=== PATIENT | female | born 1965 | race Caucasian/White ===

== ENCOUNTER 2022-09-30 12:25 | Emergency (ER) | payer MEDICARE, SELFPAY ==
[2022-09-30] VITALS (31 sets, daily range): BP systolic 109–166; BP diastolic 48–92; PULSE 75–96; RESP 11–29; TEMP 36.9; O2SAT 98–100
--- NOTE | ~2022-09-30 | US_ITS ---
EXAMINATION: US venous doppler LE RT DATE: 09/30/2022 13:33 INDICATION: Right lower limb swelling. TECHNIQUE: Grayscale ultrasound images without and with compression and Doppler ultrasound images of the right lower extremity veins were obtained. COMPARISON: None. FINDINGS: There is thrombus in right common femoral vein, greater saphenous vein, deep femoral vein, femoral ve in, and posterior tibial and peroneal veins. IMPRESSION: 1. Extensive acute deep vein thrombosis in right lower limb. Reviewed, dictated and finalized at location A.
--- NOTE | ~2022-09-30 | XR_ITS ---
EXAMINATION: XR chest 2V DATE: 09/30/2022 13:19 INDICATION: Shortness of breath. TECHNIQUE: Frontal and lateral views of the chest were obtained. COMPARISON: None. FINDINGS: There is no pneumonia, pleural effusion, or pneumothorax. The heart size is normal. IMPRESSION: 1. No acute cardiopulmonary disease. Reviewed, dictated and finalized at location A.
--- NOTE | ~2022-09-30 | CT_ITS ---
EXAMINATION: CTA chest PE abdomen pel DATE: 09/30/2022 13:44 INDICATION: Pulmonary emboli. Diarrhea. TECHNIQUE: Computed tomography angiography (CTA) of the chest was performed with 100 mL Omnipaque-350 intravenous contrast timed to evaluate the pulmonary arteries. Coronal maximum intensity projection 3D-reconstructions were created by the technologist. Computed tomography (CT) of the abdomen and pelv is was performed with intravenous contrast. Automated exposure control and iterative reconstruction t echnique were employed. The dose-length product was 2016.35 mGy-cm. COMPARISON: None. FINDINGS: CTA chest: The lungs demonstrate mild dependent atelectasis. No pleural effusion. The heart size is n ormal. No pericardial effusion. There are acute pulmonary emboli in right upper lobe, right middle lo be, and right lower lobe. There is severe thoracic spondylosis. CT abdomen and pelvis: The liver, gallbladder, spleen, pancreas, and adrenal glands are normal. There is cortical thinning of the kidneys. There is a 6 mm cyst in left kidney. There is a 6.1 x 5.6 cm ma ss in the uterus centered at the endometrial complex. There are no dilated loops of bowel. The append ix is normal. There is mild right common iliac and left para-aortic lymphadenopathy. There is thrombu s in right femoral vein, deep femoral vein, greater saphenous vein, common femoral vein, and external iliac vein. There is no free intraperitoneal fluid. There is asymmetric edema in right thigh. There is severe lumbar spondylosis. IMPRESSION: 1. Acute right-sided pulmonary emboli. 2. 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 3. Mild right common iliac and left para-aortic lymphadenopathy suspicious for metastatic disease. 4. Deep vein thrombosis in right thigh and right external iliac vein. Reviewed, dictated and finalized at location A.
--- NOTE | 2022-09-30 12:32 | ECG_ITS ---
Measurements Intervals [place] Rate: 82 P: 57 NV: 132 QRS: -16 QRSD: 100 T: 30 QT: 389 QTc: 457 Interpretive Statements SINUS RHYTHM DELAYED PRECORDIAL R/S TRANSITION BASELINE ARTIFACT- I, II, AVR, AVL, AVF BORDERLINE ECG NO PREVIOUS ECG AVAILABLE FOR COMPARISON Electronically Signed On 09-30-2022 12:59:56 CDT by Jaylen Sood D.O.
--- NOTE | 2022-09-30 12:41 | ED.GENADULT ---
HPI - General Adult General Chief complaint: Shortness of Breath/Dyspnea Stated complaint: hard time breathing Time Seen by Provider: 09/30/22 12:30 History of Present Illness HPI narrative: 57-year-old female presented to the emergency department for evaluation of right leg swelling. Patient states the right leg began swelling approximately 2 days ago. Patient was also complaining of increased anxiety after she fell as she was being cyber stalked. Patient denies any chest pain or any shortness of breath. Patient denies any prior history of PE or DVT. Related Data Allergies Allergy/AdvReac Type Severity Reaction Status Date / Time lemon Allergy Mild Unknown Verified 09/30/22 12:29 Review of Systems Review of Systems: All systems reviewed & are unremarkable except as noted in HPI and below Exam Narrative: APPEARANCE: Ill-appearing HEAD: normocephalic, atraumatic. EYES: PERRLA/EOMI, conjunctivae clear. NOSE: Normal no drainage EARS:TMS clear with good light reflex. THROAT: Pharynx clear, no exudate. NECK: Supple. No adenopathy, no masses. RESPIRATORY: Airway patent, respirations nonlabored. Clear to auscultation bilaterally, no rales, rhonchi, wheezing. CARDIOVASCULAR: Regular rate and rhythm without murmurs rubs or gallops. ABDOMINAL: Soft, nontender, nondistended, normal bowel sounds Pelvic exam: No current vaginal bleeding or blood in the vaginal vault MUSCULOSKELETAL: Right lower extremity swelling and erythema with extensive edema NEURO: Alert. Cranial nerves II through XII intact. SKIN: Warm, dry. Normal Color Course Course Emergency Course: Patient does have extensive DVT of the right lower extremity CTA PE study with additional abdomen pelvis imaging was ordered to evaluate for clot extension into the abdomen. Patient does have extension of the clot into the right iliac vein. Patient also has extensive lymphadenopathy around the pelvic vasculature. Patient has a 6.1 cm uterine mass. CTA also showed evidence of a right-sided pulmonary embolism. [facility] Patient was accepted for transfer to [place]. They do have interventional radiology and they are willing to see the patient. Patient will also be seen by [facility]. He is was discussed with Dr. Lucas and patient was accepted by Dr. Pathak. On oral exam patient had no vaginal bleeding. Patient was started on heparin bolus and infusion while in the ED. Patient was updated on the diagnosis and plan for treatment and transfer. All questions and concerns were addressed. Patient was stable at time of transfer. Vital Signs Vital signs: Vital Signs Temperature 98.4 F 09/30/22 12:27 Pulse Rate 96 09/30/22 12:27 Respiratory Rate 24 H 09/30/22 12:27 Blood Pressure 150/53 H 09/30/22 12:27 Pulse Oximetry 98 09/30/22 12:27 Oxygen Delivery Room Air 09/30/22 12:27 Temperature 98.4 F 09/30/22 12:27 Pulse Rate 81 09/30/22 19:00 Respiratory Rate 20 09/30/22 19:00 Blood Pressure 166/77 H 09/30/22 19:00 Pulse Oximetry 100 09/30/22 19:26 Oxygen Delivery Room Air 09/30/22 12:27 Medical Decision Making Differential Diagnosis Differential Diagnosis: DVT, cellulitis, pulmonary embolism, pneumonia, colitis, vaginal bleeding Vital Signs Vital Signs: Vital Signs Temperature 98.4 F 09/30/22 12:27 Pulse Rate 96 09/30/22 12:27 Respiratory Rate 24 H 09/30/22 12:27 Blood Pressure 150/53 H 09/30/22 12:27 Pulse Oximetry 98 09/30/22 12:27 Oxygen Delivery Room Air 09/30/22 12:27 Temperature 98.4 F 09/30/22 12:27 Pulse Rate 81 09/30/22 19:00 Respiratory Rate 20 09/30/22 19:00 Blood Pressure 166/77 H 09/30/22 19:00 Pulse Oximetry 100 09/30/22 19:26 Oxygen Delivery Room Air 09/30/22 12:27 Lab Data Lab results reviewed: Yes I reviewed the patient's lab results. 09/30/22 12:42 09/30/22 12:42 Labs:
[2022-09-30 12:47] LABS: Basophils Percent Auto 0.5 % (0.2-1.2); Eosinophils Absolute Auto 0.3 K/mm3 (0-0.3); Eosinophils Percent Auto 3.6 % (0-4.4); Hematocrit 33.3 % (37.0-47.0); Hemoglobin 10.6 g/dL (12.0-15.0); Immature Granulocyte Absolute 0.07 K/mm3 (0.00-0.031); Immature Granulocyte Percent A 0.8 % (0-0.5); Lymphocytes Absolute Auto 1.95 K/mm3 (0.9-3.2); Lymphocytes Percent Auto 22.1 % (18.3-44.2); Mean Corpuscular HGB Conc 31.8 g/dl (32-36); Mean Corpuscular Hemoglobin 28.2 pg (26-34); Mean Corpuscular Volume 88.6 fl (80-100); Mean Platelet Volume 9.6 fl (7.4-10.4); Monocytes Absolute Auto 0.9 K/mm3 (0.1-0.6); Monocytes Percent Auto 10.2 % (2.6-8.5); Neutrophils Absolute Auto 5.5 K/mm3 (1.3-6.7); Neutrophils Percent Auto 62.8 % (45.5-73.1); Platelet Count Result 207 k/mm3 (150-375); Red Blood Count 3.76 M/mm3 (4.2-5.4); Red Cell Distribution Width 14.2 % (11.5-14.5); White Blood Count 8.8 K/mm3 (4.5-10.0)
[2022-09-30 13:02] LABS: INR 1.1; Partial Thromboplastin Time 25.6 SECONDS (22.3-36.8)
[2022-09-30 13:04] LABS: Ethanol < 10 mg/dL (<10)
[2022-09-30 13:14] LABS: Alanine Aminotransferase 23 U/L (6-35); Albumin Level 3.7 g/dL (3.5-5.1); Alkaline Phosphatase 121 U/L (38-126); Anion Gap 8 mmol/L (8-16); Aspartate Amino Transferase 26 U/L (14-36); Bilirubin,Total 0.6 mg/dL (0.2-1.3); Blood Urea Nitrogen 19 mg/dL (7-17); Calcium 8.6 mg/dL (8.4-10.2); Carbon Dioxide 25 mmol/L (22-30); Chloride 104 mmol/L (98-107); Estimated CRCL calculation 81 ml/min; Estimated Glomerular Filt Rate > 60; Glucose 136 mg/dL (65-110); Potassium 3.9 mmol/L (3.4-5.0); Sodium 137 mmol/L (137-145)
[2022-09-30 13:23] LABS: NT Pro B Type Natriuretic Pept 117 pg/mL (19.9-100)
[2022-09-30 13:52] LABS: Barbiturate Screen Urine Negative (Negative); Benzodiazepines Screen Urine Negative (Negative)
[2022-09-30 14:05] LABS: Cannabinoid Screen Urine Negative (Negative); Cocaine Screen Urine Negative (Negative); Methadone Screen Urine Negative (Negative); Opiate Screen Urine Negative (Negative); Phencyclidine Screen Urine Negative (Negative)
[2022-09-30 14:23] LABS: Amphetamine Screen Urine Positive (Negative)
[2022-09-30] MEDS: SODIUM CHLORIDE 0.9% IV 1,000 ML 999 ML IV CONT (14:49)
--- NOTE | 2022-09-30 15:25 | PC.NURSE ---
PT accepted to RM 484 at [facility]
[2022-09-30] MEDS: HEPARIN SOD/D5W 100 UNITS/ML 25,000 UNITS/250 ML BAG 12 UNITS IV CONT (15:36)
[2022-09-30] MEDS: HEPARIN SODIUM 5,000 UNITS/ML VIAL 5500 UNITS IV PUSH (15:37)
--- NOTE | 2022-09-30 15:44 | PC.NURSE ---
pt accepted to [facility] Rm 484 in [place] [facility] 1533 [facility] declined transfer - No Transfer truck 1535 [facility] declined transfer - No Transfer truck 15[facility] accepted transfer ETA 1730 Trip # [id number]
== END 2022-09-30 19:33 | disposition short-term general hospital (02) ==
PROVIDERS: Emergency Provider Emergency Medicine; PCP Internal Medicine
DX: I26.99 Other pulmonary embolism without acute cor pulmonale (principal); I82.411 Acute embolism and thrombosis of right femoral vein; I82.441 Acute embolism and thrombosis of right tibial vein; I82.451 Acute embolism and thrombosis of right peroneal vein; I82.491 Acute embolism and thrombosis of other specified deep vein of right lower extremity; I82.421 Acute embolism and thrombosis of right iliac vein; N85.8 Other specified noninflammatory disorders of uterus; R59.1 Generalized enlarged lymph nodes; R94.31 Abnormal electrocardiogram [ECG] [EKG]
CPT/HCPCS: 36415; 71046; 71275; 74177; 80053; 80307; 83880; 85025; 85610; 85730; 93005; 93971; 96361; 96365; 96366; 99291; J1644; J7030; Q9967

== ENCOUNTER 2023-06-14 11:18 | Emergency (ER) | payer MEDICARE, SELFPAY ==
[2023-06-14] VITALS (19 sets, daily range): BP systolic 75–125; BP diastolic 32–82; PULSE 81–101; RESP 14–26; TEMP 36.5; O2SAT 100
--- NOTE | ~2023-06-14 | XR_ITS ---
EXAMINATION: XR chest 2V DATE: 06/14/2023 12:19 INDICATION: Shortness of breath. Weakness. TECHNIQUE: Frontal and lateral views of the chest were obtained. COMPARISON: Chest 2 views 09/30/2022, chest CT 09/30/2022 FINDINGS: There is no pneumonia, pleural effusion, or pneumothorax. The heart size is normal. There i s a right internal jugular port with tip in superior vena cava. IMPRESSION: 1. No acute cardiopulmonary disease. Reviewed, dictated and finalized at location E. PAY SPECIALIST
--- NOTE | 2023-06-14 11:28 | ECG_ITS ---
Measurements Intervals [place] Rate: 99 P: 31 FL: 138 QRS: -20 QRSD: 83 T: 25 QT: 344 QTc: 441 Interpretive Statements SINUS RHYTHM LEFT VENTRICULAR HYPERTROPHY BORDERLINE R WAVE PROGRESSION, ANTERIOR LEADS BORDERLINE ECG COMPARED TO ECG 09/30/2022 12:41:35 NO SIGNIFICANT CHANGES Electronically Signed On 06-14-2023 12:21:38 PROGRAM CLERK by Jaylen Sood D.O.
[2023-06-14] MEDS: SODIUM CHLORIDE 0.9% IV 1,000 ML 999 ML IV CONT (12:35)
[2023-06-14 12:45] LABS: Basophils Percent Auto 0.2 % (0.2-1.2); Eosinophils Percent Auto 0.6 % (0-4.4); Hemoglobin 8.1 g/dL (12.0-15.0); Immature Granulocyte Absolute 0.02 K/mm3 (0.00-0.031); Immature Granulocyte Percent A 0.4 % (0-0.5); Lymphocytes Absolute Auto 0.45 K/mm3 (0.9-3.2); Lymphocytes Percent Auto 9.3 % (18.3-44.2); Mean Corpuscular HGB Conc 32.4 g/dl (32-36); Mean Corpuscular Hemoglobin 32.9 pg (26-34); Mean Corpuscular Volume 101.6 fl (80-100); Mean Platelet Volume 10.6 fl (7.4-10.4); Monocytes Absolute Auto 0.1 K/mm3 (0.1-0.6); Monocytes Percent Auto 2.7 % (2.6-8.5); Neutrophils Absolute Auto 4.2 K/mm3 (1.3-6.7); Neutrophils Percent Auto 86.8 % (45.5-73.1); Platelet Count Result 100 k/mm3 (150-375); Red Blood Count 2.46 M/mm3 (4.2-5.4); White Blood Count 4.8 K/mm3 (4.5-10.0)
[2023-06-14 13:02] LABS: Alanine Aminotransferase 51 U/L (6-35); Alkaline Phosphatase 80 U/L (38-126); Anion Gap 6 mmol/L (8-16); Aspartate Amino Transferase 36 U/L (14-36); Bilirubin,Total 0.5 mg/dL (0.2-1.3); Blood Urea Nitrogen 28 mg/dL (7-17); Calcium 8.5 mg/dL (8.4-10.2); Carbon Dioxide 28 mmol/L (22-30); Chloride 103 mmol/L (98-107); Estimated CRCL calculation 58 ml/min; Estimated Glomerular Filt Rate 57; Glucose 160 mg/dL (65-110); Potassium 3.7 mmol/L (3.4-5.0); Sodium 137 mmol/L (137-145)
--- NOTE | 2023-06-14 15:53 | ED.GENADULT ---
HPI - General Adult General Chief complaint: Weakness Stated complaint: shortness of breath/dizziness Time Seen by Provider: 06/14/23 15:47 Source: patient Mode of arrival: EMS Limitations: no limitations History of Present Illness HPI narrative: This is a 57-year-old female who presents to the ED via EMS for chief complaint of shortness of breath. She was working at [employer] today when her co-worker called the ambulance because they thought she looked short of breath. Patient states that she feels fine right now. completely asymptomatic. Reports that she is short of breath all the time and generally weak after her most recent chemo treatment this week. Denies chest pain, syncope, lightheadedness, cough, fevers, chills, abdominal pain. Denies GI bleeding symptoms or any vaginal bleeding symptoms. Related Data Home Medications Medication Instructions Recorded Confirmed apixaban 5 mg tablet (Eliquis) 5 mg PO BID 04/02/23 05/08/23 fluoxetine 20 mg capsule 20 mg PO DAILY 04/02/23 05/08/23 hydroxyzine HCl 25 mg tablet 25 mg PO ONCE PRN 04/02/23 05/08/23 trazodone 50 mg tablet 25 mg PO QHS PRN 04/02/23 05/08/23 ondansetron HCl 8 mg tablet 8 mg PO DAILY PRN 05/08/23 05/08/23 triamcinolone acetonide 0.1 % 1 applic topical ONCE PRN 05/08/23 05/08/23 topical cream Allergies Allergy/AdvReac Type Severity Reaction Status Date / Time lemon Allergy Mild Diziness Verified 06/14/23 12:31 Review of Systems Review of Systems: All systems as dictated in HPI [facility] Past Medical History Medical History (Updated 06/14/23 @ 16:18 by Elio Avalos PA-C) Anxiety History of deep venous thrombosis (DVT) of distal vein of right lower extremity Surgical History Surgical History (Updated 04/02/23 @ 14:06 by Anil Miner MD) History of bunionectomy History of hysterectomy (10/2022) Family History Family History (Updated 05/08/23 @ 10:57 by Fernanda Mayfield APRN) Father Diabetes mellitus Heart problem Malignant neoplasm of prostate Mother Diabetes mellitus Heart problem Sibling Diabetes mellitus Heart problem Social History Social History (Updated 05/08/23 @ 10:58 by Fernanda Mayfield, DIPIKA) Smoking status: Former smoker Alcohol intake: never Substance use: never Substance use type: does not use Exam Narrative: GENERAL: Well-appearing, well-nourished, and in no acute distress. HEAD: Normocephalic, atraumatic. EYES: PERRLA and EOMI. ENT: Nares clear, no rhinorrhea or epistaxis. Mucous membranes moist. Oropharynx without tonsillar hypertrophy exudate or other lesions. NECK: Supple. No adenopathy or masses. CHEST: No respiratory distress. Clear to auscultation. No wheezes rales or rhonchi . 100% room air HEART: Regular rate and rhythm. No murmur heard. Normal peripheral pulses. ABDOMEN: Soft, nontender, nondistended, normal active bowel sounds. MSK: Normal range of motion. No edema. SKIN: Warm, dry, no rash. NEURO: Alert and oriented x3. No focal deficits. PSYCH: Normal mood and affect. Did not go below 96% with walking saturation test. Course Vital Signs Vital signs: Vital Signs Temperature 97.7 F 06/14/23 11:26 Pulse Rate 100 06/14/23 11:26 Respiratory Rate 22 H 06/14/23 11:26 Blood Pressure 95/69 L 06/14/23 11:26 Pulse Oximetry 100 06/14/23 11:26 Oxygen Delivery Room Air 06/14/23 11:26 Temperature 97.7 F 06/14/23 11:26 Pulse Rate 81 06/14/23 15:26 Respiratory Rate 19 06/14/23 14:35 Blood Pressure 125/73 06/14/23 14:35 Pulse Oximetry 100 06/14/23 15:02 Oxygen Delivery Room Air 06/14/23 11:26 Medical Decision Making MDM Narrative Medical decision making narrative: this is a 57-year-old female who presents to the ED via EMS from working at [employer]. Co-worker called because patient looked short of breath. on arrival patient states she feels asymptomatic in that she has chronically short of breath
== END 2023-06-14 16:29 | disposition home or self-care (01) ==
PROVIDERS: Emergency Medicine; Emergency Provider Physician Assistant; PCP Family Medicine Adolescent Medicine
DX: D49.9 Neoplasm of unspecified behavior of unspecified site (principal); D63.0 Anemia in neoplastic disease; F41.9 Anxiety disorder, unspecified; Z86.718 Personal history of other venous thrombosis and embolism; Z87.891 Personal history of nicotine dependence; Z90.710 Acquired absence of both cervix and uterus; Z79.01 Long term (current) use of anticoagulants; Z79.60 Long term (current) use of unspecified immunomodulators and immunosuppressants; I51.7 Cardiomegaly; R94.31 Abnormal electrocardiogram [ECG] [EKG]
CPT/HCPCS: 36415; 71046; 80053; 85025; 93005; 96360; 99283; J7030

== ENCOUNTER 2024-01-01 16:30 | Outpatient (CLI) | payer MEDICARE, SELFPAY ==
--- NOTE | ~2024-01-01 | XR_ITS ---
XR knee RT 3V 01/01/2024 16:51 Indication: Right knee pain Procedure: 3 views right knee Comparison: No prior studies for comparison. Findings: Mild tricompartment osteoarthritis. No joint effusion. No fracture or traumatic malalignmen t. No foreign bodies. Impression: 1: Mild tricompartment osteoarthritis. Reviewed, dictated and finalized at location B. Impression: 1: Mild tricompartment osteoarthritis.
--- NOTE | ~2024-01-01 | XR_ITS ---
XR knee LT 3V 01/01/2024 16:51 Indication: Left knee pain Procedure: 3 views left knee Comparison: No prior studies for comparison. Findings: Mild tricompartment osteoarthritis. No fracture, subluxation or dislocation. No significant joint effusion. No foreign bodies. Impression: 1: Mild tricompartment osteoarthritis. Reviewed, dictated and finalized at location B. Impression: 1: Mild tricompartment osteoarthritis.
== END 2024-01-01 16:31 | disposition home or self-care (01) ==
LOC: ANHIMG 16:35
PROVIDERS: PCP Family Medicine Adolescent Medicine; Visit Provider Nurse Practitioner Family
DX: M17.0 Bilateral primary osteoarthritis of knee (principal)
CPT/HCPCS: 73562

== ENCOUNTER 2024-03-26 14:26 | Outpatient (CLI) | payer MEDICARE, SELFPAY ==
--- NOTE | ~2024-03-26 | US_ITS ---
EXAMINATION: US venous doppler LE RT DATE: 03/26/2024 15:13 INDICATION: Right lower limb swelling TECHNIQUE: Grayscale ultrasound images without and with compression and Doppler ultrasound images of the right lower extremity veins were obtained. COMPARISON: 09/30/2022 FINDINGS: There is persistent occlusive deep venous thrombosis throughout the right femoral vein. The visualize d portions of right common femoral vein, profunda (deep) femoral vein, popliteal vein, peroneal trunk , posterior tibial veins, peroneal veins, gastrocnemius vein and greater saphenous vein outflow are n ow patent. IMPRESSION: 1. Persistent extensive deep venous thrombosis throughout the right femoral vein with resolution of thrombus previously seen in many of the additional veins in the right lower limb. Reviewed, dictated and finalized at location A. IMPRESSION: 1. Persistent extensive deep venous thrombosis throughout the right femoral ve in with resolution of thrombus previously seen in many of the additional veins in the right lower limb.
== END 2024-03-26 14:27 | disposition home or self-care (01) ==
PROVIDERS: PCP Family Medicine Adolescent Medicine; Visit Provider Nurse Practitioner Family
DX: R60.9 Edema, unspecified (principal); I82.411 Acute embolism and thrombosis of right femoral vein
CPT/HCPCS: 93971

== ENCOUNTER 2024-05-01 08:36 | Outpatient (CLI) | payer MEDICARE, SELFPAY ==
--- NOTE | ~2024-05-01 | NM_ITS ---
EXAMINATION: NM ussie stress w perfusion DATE: 05/01/2024 12:55 EHR TRAINER INDICATION: Dyspnea TECHNIQUE: Rest images were obtained following intravenous administration of 11 mCi Tc99m tetrofosmin (Myoview). The patient was infused intravenously with Lexiscan (regadenoson). Then, 34 mCi Tc99m tet rofosmin (Myoview) was administered intravenously, and stress images were obtained. Data was reconstr ucted into short axis and horizontal and vertical long axis SPECT images. Gated SPECT images were als o obtained. COMPARISON: None. FINDINGS: There is no definite reversible or fixed perfusion abnormality to suggest ischemia or infar ction. There is no segmental wall motion abnormality. Left ventricular ejection fraction measures 6 7%. IMPRESSION: 1. No definite ischemia or infarct. 2. Normal left ventricular ejection fraction measuring 67%. Reviewed, dictated and finalized at location B. TRAINER
--- NOTE | 2024-05-01 09:24 | EST_ITS ---
Patient Info Name: Rosi Pennington Age: 58 years : 1965 Gender: Female Ht: 64 in Wt: 180 lbs BSA: 1.95 m2 Exam Date: 05/01/2024 10:05 AM Exam Location: Echo Lab Patient Status: Outpatient Admit Date: 05/01/2024 Staff Ordering Physician: Fernanda Mayfield APRN Attending Provider: Fernanda Mayfield APRN Exercise Technologist: Demetria Duque RDCS Exercise Physician: Jaylen Sood DO Exam Type: CA stress test treadmill w NM Study Info A nuclear stress test was performed. Summary 1. 1. Negative Dung exercise stress test for ischemic ST changes by ECG criteria. 2. 2. Poor functional capacity, achieving 5 METS of workload. 3. 3. Baseline hypertension. 4. 4. Appropriate HR response to exercise. 5. 5. Appropriate HR recovery at 1 minute post exercise. 6. 6. Nuclear scan to follow and will be reported separately. Please correlate with it. 7. 7. Patient informed of the above results. Protocol: Dung Stress ECG Details Stage: REST Duration (min): 1 min : 4 sec Speed (mph): 0.0 Grade (%): 0 HR (bpm): 59 SBP (mmHg): 140 DBP (mmHg): 83 METS: --- Stage: REST Duration (min): 10 min : 57 sec Speed (mph): 0.0 Grade (%): 0 HR (bpm): 81 SBP (mmHg): 140 DBP (mmHg): 83 METS: --- Stage: STAGE 1 Duration (min): 1 min : 0 sec Speed (mph): 1.7 Grade (%): 10 HR (bpm): 107 SBP (mmHg): 140 DBP (mmHg): 83 METS: --- Stage: STAGE 1 Duration (min): 2 min : 0 sec Speed (mph): 1.7 Grade (%): 10 HR (bpm): 126 SBP (mmHg): 140 DBP (mmHg): 83 METS: --- Stage: STAGE 1 Duration (min): 3 min : 0 sec Speed (mph): 1.7 Grade (%): 10 HR (bpm): 132 SBP (mmHg): 171 DBP (mmHg): 71 METS: --- Stage: STAGE 2 Duration (min): 0 min : 22 sec Speed (mph): 2.5 Grade (%): 12 HR (bpm): 139 SBP (mmHg): 171 DBP (mmHg): 71 METS: --- Stage: RECOVERY Duration (min): 0 min : 37 sec Speed (mph): 0.0 Grade (%): 0 HR (bpm): 134 SBP (mmHg): 171 DBP (mmHg): 71 METS: --- Stage: RECOVERY Duration (min): 1 min : 37 sec Speed (mph): 0.0 Grade (%): 0 HR (bpm): 85 SBP (mmHg): 176 DBP (mmHg): 69 METS: --- Stage: RECOVERY Duration (min): 2 min : 37 sec Speed (mph): 0.0 Grade (%): 0 HR (bpm): 76 SBP (mmHg): 176 DBP (mmHg): 69 METS: --- Stage: RECOVERY Duration (min): 3 min : 37 sec Speed (mph): 0.0 Grade (%): 0 HR (bpm): 84 SBP (mmHg): 204 DBP (mmHg): 71 METS: --- Stage: RECOVERY Duration (min): 4 min : 37 sec Speed (mph): 0.0 Grade (%): 0 HR (bpm): 77 SBP (mmHg): 204 DBP (mmHg): 71 METS: --- Stage: RECOVERY Duration (min): 5 min : 37 sec Speed (mph): 0.0 Grade (%): 0 HR (bpm): 74 SBP (mmHg): 165 DBP (mmHg): 69 METS: --- Stage: RECOVERY Duration (min): 6 min : 37 sec Speed (mph): 0.0 Grade (%): 0 HR (bpm): 78 SBP (mmHg): 165 DBP (mmHg): 69 METS: --- Stage: RECOVERY Duration (min): 6 min : 55 sec Speed (mph): 0.0 Grade (%): 0 HR (bpm): 75 SBP (mmHg): 141 DBP (mmHg): 69 METS: --- Rest HR: 81 bpm Peak HR: 140 bpm Rest Sys BP: 140 mmHg Peak Sys BP: 204 mmHg Max Pred HR: 162 bpm % Max Pred HR: 86 % Target HR: 138 bpm Max RPP: 28,560 bpm*mmHg Healy Score: 1 Termination Reason: Reached target heart rate or workload Cardiac Symptoms: Shortness of breath Max ST Seg Deviation: 0 mm Total Time: 3 min : 22 sec Rest Ledbetter BP: 83 mmHg Peak Ledbetter BP: 71 mmHg Angina Score: None Total METS: 5.3 Resting ECG Sinus rhythm. Stress ECG No ST changes. Arrhythmias None. Report Signatures
== END 2024-05-01 08:37 | disposition home or self-care (01) ==
PROVIDERS: PCP Family Medicine Adolescent Medicine; Visit Provider Nurse Practitioner Family
DX: R06.09 Other forms of dyspnea (principal)
CPT/HCPCS: 78452; 93017; A9502

== ENCOUNTER 2024-08-03 10:07 | Outpatient (CLI) | payer MEDICARE, SELFPAY ==
--- NOTE | ~2024-08-03 | CT_ITS ---
EXAMINATION: CT pelvis w con DATE: 08/03/2024 10:36 INDICATION: Localized edema. TECHNIQUE: Computed tomography (CT) of the pelvis was performed with 100 mL Omnipaque 350 intravenous contrast. Automated exposure control and iterative reconstruction technique were employed. The dose- length product was 681.36 mGy-cm. COMPARISON: 09/30/2022 FINDINGS: Vascular or sam calcifications adjacent to the right ureter. Dense material in the distal appendix may represent appendicolith, appendix otherwise normal. Visualized small bowel is normal. M ild wall edema in the distal sigmoid and rectum. Minimal diverticulosis, without diverticulitis. Norm al urinary bladder. Absent uterus. Bilateral ovaries not confidently visualized. No free air or free fluid. Minimal atherosclerotic calcifications. Subcentimeter bilateral inguinal, mesenteric, and left iliac lymph nodes. No lymph nodes identified measuring greater than 1 cm in short axis diameter. Low er lumbar degenerative disc disease and mild bilateral hip osteoarthritis. No lytic or blastic lesion . Unremarkable regional soft tissues. IMPRESSION: No pelvic mass or suspicious lymph node enlargement. Mild distal sigmoid and rectal wall edema may reflect infectious, inflammatory, or ischemic colitis. Reviewed, dictated and finalized at location K.
--- OUTSIDE RECORDS SUMMARY | 2024-08-03 11:50 | XMS_ITS | Data Portability ---
Author Organization MD Precious LYLE [facility] Address [address] [facility] [address] [place] [address] Assessment No assessment recorded. Plan of Treatment Reminders Order Date Submit Date Provider Last Modified By Organization Details Last Modified Time Details Appointments None record ed. Lab None record ed. Referral None record ed. Procedures None record ed. Surgeries None record ed. Imaging None record ed. Medication Orders None record ed. Patient TargetsNo targets recorded. Patient InstructionsNo instructions recorded. Reason for Referral None Reported. Problems Name Problem SNOMED Code Status Onset Date Resolution Date Notes Provider Name and Address Organization Details Recorded Time Posttraumatic stress disorder 66799950 Active 2024 DEVYN MOSQUERA [id number], [place], [address], MD Lang LIRIANOADOLFO LYLE [facility] 10:32:05 Anxiety 10438438 Active 2024 DEVYN MOSQUERA [address] [facility] [address], [place], [address], MD Precious LYLE [facility] 10:32:19 Problem Notes None recorded. Procedures Surgical History Date Name Laterality Status Provider Name and Address Organization Details Recorded Time 05/27/19 23 Partial Hysterectomy completed Natalee Lang [facility] 06/08/2024 10:16:29 05/27/19 23 evacuation of blood clot of skin completed Natalee Lang [facility] 06/08/2024 10:16:44 05/27/19 07 excision of bunion completed Natalee Lang [facility] 06/08/2024 10:17:21 Port, indwelling, imp completed Natalee Posada MD [facility] 06/08/2024 10:17:55 Imaging Results None recorded. Procedure Notes None recorded. Medical Equipment None Reported. Allergies No known drug allergies Medications Name Sig Start Date Stop Date Status Note LastModified by Organization Details LastModified Time fluoxetine active Not Available Not Av ailable Not Available quetiapine active Not Available Not Av ailable Not Available docusate calcium active Not Available Not Available Not Available clonazepam active Not Available Not Av ailable Not Available Vitals Date Recorded Body height Provider Name an d Address Organization Details Last Updated DateTime 06/08/2024 162.56 cm NANNETTE MOSQUERA [id number], [place], [address], [facility] 06/08/2024 10:31:32 Social History None recorded. Functional Status None recorded. Mental Status None recorded. Family History Relationship Description Onset Age of this Age Resolved Age Notes LastModified by Organization Details LastModified Time Father Heart disease [email or web address] Not available 2024 10:16:00 Father Diabetes mellitus Not available 2024 10:16:18 Mother Heart disease [email or web address] Not available 2024 10:16:00 Mother Diabetes mellitus [email or web address] Not available 2024 10:16:18 Medical History No medical history recorded. Gynecological HistoryNo gynecological history recorded. Obstetrics History GPAL:G 0 P 0 0 0 0 Past Encounters Encounter ID Performer Location Encounter Start Date Encounter Closed Date Diagnosis/Indication Diagnosis SNOMED-CT Code Diagnosis ICD10 Code Diagnosis Note [id number] DEVYN MOSQUERA [address] [facility] [address] [place] [address] 06/08/2024 10:12:34 06/21/2024 18:51:00 Screening for malignant neoplasm of colon 321815643 Z12.11 recommend getting fit testing Anxiety 29173397 F41.9 on clonazepam and fluoxetine , stable, follow up with Posttrauma tic stress disorder 17052195 F43.10 on quetiapine , stable, follow up with Constipation 29715533 K5 9.00 on docusate, stable, follow up with Health Concerns Section Related Observation LastModified by Organization Detai ls LastModified Time None Recorded Concern Status LastModified by Organization Details LastModified Time None Recorded Advance Directives Directive None Recorded Payers Encounter Date Sequence Insurance Name Policy Number Policy Griggs Covered Member ID Griggs Member ID Guarantor Name 06/08/2024 1 *SELF PAY* Jalil Pennington Notes Date Note Type Note Provider Name and Address Organization Details Recorded Time 06/08/2024 text/html Member seen via televisit, member at friends house does not have medication list with her. CHIARA DEGROOT NP-C [id number], [facility] , [phone], - [facility] 06/08/2024 10:51:36 OBGyn Episode No OBEpisode recorded.
--- OUTSIDE RECORDS SUMMARY | 2024-08-03 11:50 | XMS_ITS | Encounter Summary ---
Author Organization [facility] Health Address [address] [facility] [place] [address] Care Team Providers Care Green Chainer Name Role Phone Anil Miner MD Primary Care Provider + Encounter Details Date Type Department Care Team (Late st Contact Info) Description 06/04/2023 [facility] Outpatient Visit [facility] [id number] [place] [phone] Franko Goodrich MD [address] [facility] [address] [place] [address] Social History Tobacco Use Types Packs/Day Years Used Date Smoking Tobacco: Former Cigarettes Q uit: 1998 Smokeless Tobacco: Never Alcohol Use Standard Drinks/Week Comments Never 0 (1 standard drink = 0.6 oz pur e alcohol) Overall Financial Resource Strain (CARDIA) Answe r Date Recorded How hard is it for you to pa y for the very basics like food, housing, medical care, and heating? Not very hard 09/30/2022 PHQ-2 Answer Date Recorded Patient Health Questionnaire-2 Score 0 04/29/2023 [facility] - Occupational Stress Questionnaire Answer Date Recorded Do you feel stress - tense, restless, nervous, or anxious, or unable to sleep at night because your mind is troubled all the time - these days? Very much 09/30/2022 Hunger Vital Sign Answer Date Recorded Within the past 12 months, y ou worried that your food would run out before you got the money to buy more. Never true 10/02/19 23 Within the past 12 months, t he food you bought just didn't last and you didn't have money to get more. Never true 10/01/2022 PRAPARE - Transportation Answer Date Re corded In the past 12 months, has l ack of transportation kept you from medical appointments or from getting medications? No 11/2022 In the past 12 months, has l ack of transportation kept you from meetings, work, or from getting things needed for daily living? Yes 09/30/2022 Housing Stability Vital Sign Answer Alonso e Recorded In the last 12 months, was t here a time when you were not able to pay the mortgage or rent on time? No 09/30/2022 In the last 12 months, how many places have you lived? 1 09/30/2022 In the last 12 months, was t here a time when you did not have a steady place to sleep or slept in a longterm (including now)? No 09/30/2022 Sex and Gender Information Value Date Recorded Sex Assigned at Female 12/11/2022 11:43 AM CDT Gender Identity Not on file Sexual Orientation Not on file documented as of this encounter Functional Status Functional Status Response Date of Assess ment Is person deaf or have serious hearing difficult y? No 09/30/2022 Is person blind or have serious difficulty seein g? No 09/30/2022 Does person have serious dif ficulty walking/climbing stairs? No 09/30/2022 Does person have difficulty dressing/bathing? No 09/30/2022 Does person have difficulty doing errands alone? No 09/30/2022 Cognitive Status Response Date of Assessm ent Does person have difficulty concentrating/remembering/making decisions? No 09/30/2022 documented as of this encounter Plan of Treatment Upcoming Encounters Date Type Department Care Team (Late st Contact Info) Description 08/26/2024 11:45 AM CDT Office Visit [facility] Vascular Surgery [address] [place] [address] Saad Adams MD [address] [place] [address] documented as of this encounter Visit Diagnoses Not on filedocumented in this encounter Care Teams Green Chainer Relationship Specialty Start Date End Date Anil Miner MD [address] [address] PCP - General Family Medicine 04/09/23 documented as of this encounter
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
--- OUTSIDE RECORDS SUMMARY | 2024-08-03 11:50 | XMS_ITS | Encounter Summary ---
Author Organization [facility] Address [address] [facility] [place] [address] Care Team Providers Care General Production Worker Name Role Phone Anil Miner MD Primary Care Provider + Reason for Visit * Reason Onset Date Comments Nurse Only 09/10/2023 Follow-up 09/10/2023 Encounter Details Date Type Department Care Team (Late st Contact Info) Description 09/10/2023 Telephone [facility] - NATIONAL SERVICE OFFICER [address] [facility] [address] [place] [address] Franko Goodrich MD [address] [facility] [address] [place] [address] Nurse Only; Follow-up Social History Tobacco Use Types Packs/Day Years [...] Date Recorded Patient Health Questionnaire-2 Score 0 07/08/2023 [facility] Occupat ional Health - Occupational Stress [...] place to sleep or slept in a [facility] (including now)? No 09/30/2022 Sex and Gender [...] No 09/30/2022 documented as of this encounter Miscellaneous Notes * Telephone Encounter - Peggy Bucio RN - 09/11/2023 4:58 PM CDT Spoke with pt to get clarification on her earlier call about wanting a document stating she cannot stand outside and greet customers. Pt reports that she cannot tolerate the heat and she read that prolonged exposure to heat can cause organ damage in cancer survivors. Told pt I would consult Dr. Goodrich and get back to her. 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 documented in this encounter Plan of Treatment Upcoming Encounters Date Type Department Care Team (Late st Contact Info) Description 08/26/2024 11:45 AM CDT Office Visit [facility] Vascular Surgery [address], [facility] [address] [place] [phone] Saad Adams MD [address] [facility] [address] [place] [address] documented as of this encounter Visit Diagnoses Not on filedocumented in this encounter Care Teams General Production Worker Relationship Specialty Start Date End Date Anil Miner MD [address] [place] [phone] PCP - General Family Medicine 04/09/23 documented as of this encounter
--- OUTSIDE RECORDS SUMMARY | 2024-08-03 11:50 | XMS_ITS | Encounter Summary ---
Author Organization [facility] Health Address [address] [place] [address] Care Team Providers Care Operations Clerk Name Role Phone Pcp, None Primary Care Provider Anil Larsen MD Primary Care Provider + Encounter Details Date Type Department Care Team (Late st Contact Info) Description 12/20/2022 [facility] Outpatient Visit [facility] Cancer Care [id number] [place] [phone] Rosita Simmons, MEDICAL RECORD RETRIEVAL SPECIALIST-DAIRY FEED SALES CONSULTANT [address] [address] Social History Tobacco Use Types Packs/Day Years [...] very hard 09/30/2022 PHQ-2 Answer Date Recorded PHQ2 TOTAL SCORE 1 12/24/2022 [facility] [place] [facility] Occupat ional Health - Occupational Stress [...] place to sleep or slept in a senior care (including now)? No 09/30/2022 Sex and Gender Information Value Date Recorded Sex Assigned at Female 12/11/2022 11:43 AM CDT Gender Identity Not on file Sexual Orientation Not on file COVID-19 Exposure Response Date Recorded In the last 10 days, have yo u been in contact with someone who was confirmed or suspected to have Coronavirus/COVID-19? No / Unsure 11/21/2022 2:47 PM CDT documented as of this encounter Functional Status [...] Description 08/26/2024 11:45 AM CDT Office Visit [facility] Vascular Surgery [address] [facility] [address] [place] [address] Saad Adams MD [address] [facility] [address] [place] [address] documented as of this encounter Visit Diagnoses Not on filedocumented in this encounter Care Teams Operations Clerk Relationship Specialty Start Date End Date Pcp, None [address] [place] [address] PCP - General 10/31/22 04/08/23 Anil Miner MD [address] [address] PCP - General Family Medicine 04/09/23 documented as of this encounter
--- OUTSIDE RECORDS SUMMARY | 2024-08-03 11:51 | XMS_ITS | Encounter Summary ---
Author Organization [facility] Health Address [address] [place] [address] Care Team Providers Care Lead Manufacturing Engineering Tech Name Role Phone Anil Miner MD Primary Care Provider + Encounter Details Date Type Department Care Team (Late st Contact Info) Description 06/11/[address] [facility] Outpatient Visit [facility] Care [id number] [place] [phone] Franko Goodrich MD [address] [facility] [address] [place] [address] Social History Tobacco Use Types Packs/Day Years [...] Date Recorded Patient Health Questionnaire-2 Score 0 06/10/2023 [facility] [facility] - Occupational Stress [...] place to sleep or slept in a [facility] (including now)? No 09/30/2022 Sex and Gender [...] Vascular Surgery [address] [place] [address] Saad Adams MD [address] [place] [address] documented as of this encounter Visit Diagnoses Not on filedocumented in this encounter Care Teams Lead Manufacturing Engineering Tech Relationship Specialty Start Date End Date Anil Miner MD [address] [address] PCP - General Family Medicine 04/09/23 documented as of this encounter
--- OUTSIDE RECORDS SUMMARY | 2024-08-03 11:51 | XMS_ITS | Encounter Summary ---
Author Organization [facility] Address [address] [facility] [place] [address] Care Team Providers Care Asset Recovery Specialist Name Role Phone Pcp, None Primary Care Provider Anil Larsen MD Primary Care Provider + Reason for Visit * Reason Onset Date Comments Rx Drug Information Question 11/29/2022 Encounter Details Date Type Department Care Team (Late st Contact Info) Description 11/29/2022 Telephone [facility] - STREET LIGHT SERVICER HELPER [address] [place] [phone] Franko Goodrich MD [address] [phone] Rx Drug Information Question Social History Tobacco Use Types Packs/Day Years [...] care, and heating? Not very hard 09/30/2022 [facility] [place] [facility] Occupat ional Health - Occupational Stress [...] place to sleep or slept in a intermediate (including now)? No 09/30/2022 Sex and Gender [...] encounter Miscellaneous Notes * Telephone Encounter - Josefina Morales - 11/29/2022 2:33 PM CDT Pt is needing 10 Rx's refilled and 4 haven't been approved. Please advise. documented in this encounter Plan of Treatment Upcoming Encounters Date Type Department Care Team (Late st Contact Info) Description 08/26/2024 11:45 AM CDT Office Visit [facility] Vascular Surgery [address] [place] [phone] Saad Adams MD [address] [place] [phone] documented as of this encounter Visit Diagnoses Not on filedocumented in this encounter Care Teams Asset Recovery Specialist Relationship Specialty Start Date End Date Pcp, None [address] [place] [address] PCP - General 10/31/22 04/08/23 Anil Miner MD [address] [place] [address] PCP - General Family Medicine 04/09/23 documented as of this encounter
--- OUTSIDE RECORDS SUMMARY | 2024-08-03 11:51 | XMS_ITS | Encounter Summary ---
Author Organization [facility] Health Address [address] [place] [address] Care Team Providers Care Fern Picker Name Role Phone Anil Miner MD Primary Care Provider + Encounter Details Date Type Department Care Team (Late st Contact Info) Description 06/11/2023 [facility] Outpatient Visit [facility] Cancer Care [id number] [place] [phone] Franko Goodrich MD [address] [facility] [address] [place] [address] Social History Tobacco Use Types Packs/Day Years [...] Recorded Patient Health Questionnaire-2 Score 0 06/10/2023 [facility] - Occupational Stress [...] place to sleep or slept in a fpc (including now)? No 09/30/2022 Sex and Gender [...] Vascular Surgery [address] [place] [address] Saad Adams MD [address] [place] [address] documented as of this encounter Visit Diagnoses Not on filedocumented in this encounter Care Teams Fern Picker Relationship Specialty Start Date End Date Anil Miner MD [address] [address] PCP - General Family Medicine 04/09/23 documented as of this encounter
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
--- OUTSIDE RECORDS SUMMARY | 2024-08-03 11:51 | XMS_ITS | Encounter Summary ---
Author Organization [facility] Health Address [address] [facility] [place] [address] Care Team Providers Care Disability Aide Name Role Phone Anil Miner MD Primary Care Provider + Encounter Details Date Type Department Care Team (Late st Contact Info) Description 06/11/2023 [facility] Outpatient Visit [facility] [address] [place] [phone] Franko Goodrich MD [address] [facility] [address] [place] [address] Social History Tobacco Use Types Packs/Day Years [...] Recorded Patient Health Questionnaire-2 Score 0 06/10/2023 [place] [facility] Occupat ional Health - Occupational Stress [...] place to sleep or slept in a half-way (including now)? No 09/30/2022 Sex and Gender [...] Vascular Surgery [address] [place] [address] Saad Adams MD [address] [place] [address] documented as of this encounter Visit Diagnoses Not on filedocumented in this encounter Care Teams Disability Aide Relationship Specialty Start Date End Date Anil Miner MD [address] [address] PCP - General Family Medicine 04/09/23 documented as of this encounter
--- OUTSIDE RECORDS SUMMARY | 2024-08-03 11:51 | XMS_ITS | CONTINUITY OF CARE DOCUMENT ---
Author Name nitin kranthiliang Address Unknown Organization [facility] Address [address] [facility] [address] [place] [address] Phone [phone] Care Team Providers Care Overhead Irrigator Name Role Phone David GRAYSON, Mima Unavailable SINA DEGROOT MD Unavailable SINA DEGROOT MD Unavailable PROBLEMS Condition Status Date Provider Notes CHEST PAIN active Shameka Yoo CORONARY ARTERY DISEASE, FAMILY HX active Riley Yoo ENCOUNTERS Date Type Provider Location Encounter Diagnosis - In-person encounter Office Visit Nikolas Justice MD [place] [facility] VITAL SIGNS Date Observation Value Provider blood pressure, diastolic 74 mm[Hg] Sklyer Marcus blood pressure, systolic 121 mm[Hg] Ezequiel Marcus pulse rate 70 /min Maryam Marcus oxygen saturation, oximetry 98 % Maryam Marcus respiratory rate E&M 16 /min Cricket Marcus weight E&M 166 [lb_av] Maryam Marcus ALLERGIES No Known Drug Allergies HISTORY OF MEDICATION USE Medication Status Instructions Dates Provider Indications Com ments PRILOSEC 20 MG ORAL CAPSULE DELAYED RELEASE active ONE TAB. DAILY Nikolas Justice MD WELLBUTRIN TABLET active take as directed Riley Marcus AMOXICILLIN TABLET active take three times daily Maryam Marcus KLONOPIN 0.5 MG ORAL TABLET active take four times daiy Maryam Marcus SOCIAL HISTORY Date Observation Value Provider smoking status former smoker Mima Hernandez MD social history E&M Marital Statu s: Single L carolyn alone E thnicity: Nikolas Jutsice MD social history reviewed E&M reviewed Nikolas Justice MD physical exercise, f requency, days per week no LinkLog caffeine use, averag e drinks per day yes LinkLog alcohol use, average drinks per day none LinkLogic number of years as a smoker 10 years or m ore LinkLog smoking status Quit [facility] MENTAL STATUS Date Observation Value Provider assessment of judgme nt and insight E&M Alert and oriented to time, place and person. Mood and affect are normal. Nikolas Justice MD INSURANCE PROVIDERS Payer name Policy type / Coverage type [place] [employer] [place] [employer] [facility] [id number] TREATMENT PLAN Date Name Performer hosp f/u Nikolas Justice MD hosp f/u Nikolas Justice MD hosp f/u: O rders: E KG ([id number]) h ad a neg stress test. Nikolas Justice MD HISTORY OF PROCEDURES Procedure Date Procedure Name Provider Procedure Notes S josuéus EKG Nikolas Justice MD completed
--- OUTSIDE RECORDS SUMMARY | 2024-08-03 11:51 | XMS_ITS | Referral Summary ---
Author Organization [facility] Address [address] [facility] [place] [address] Care Team Providers Care Knotting Machine Operator Name Role Phone Anil Miner MD Primary Care Provider + Source Comments [facility],non-owned Affiliates and Associated Physician Practices is amultiple site organization consisting of ambulatory clinics and hospital sitesin [place], [place], [place] and [place]. This disclosure is being madepursuant to the Care Everywhere program and may not contain all information available regarding this patient. 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 (HCC) Discharge Disposition: Home or Self Care 05/22/2024 Telephone [facility] - CHEMICAL EDUCATOR [address] [place] [address] Peggy Bucio RN Update 05/21/2024 4:01 PM COAL GASIFICATION TECHNICIAN - 05/22/2024 1:11 AM COAL GASIFICATION TECHNICIAN Emergency ER at [facility] [address] [place] [address] Swelling of lower extremity Discharge Disposition: Left Against Medical Advice/Discontinued Care 05/21/2024 Travel 05/21/2024 Telephone [facility] - CHEMICAL EDUCATOR [address] [place] [address] Peggy Bucio, RN Question 05/05/2024 Telephone [facility] - CHEMICAL EDUCATOR [address] [place] [address] Peggy Bucio, RN Follow-up from Last 3 Months Allergies Active Allergy Reactions Criticality Noted Date [...] lower extremity, unspecified chronicity, unspecified vein 09/30/2022 Social History Tobacco Use Types Packs/Day Years [...] Recorded Patient Health Questionnaire-2 Score 0 07/08/2023 [facility] of Occupat ional Health - Occupational Stress [...] Comments Blood Pressure 131/84 05/22/2024 4:31 PM COAL GASIFICATION TECHNICIAN Pulse 82 05/22/2024 4:31 PM COAL GASIFICATION TECHNICIAN Temperature 36.3 C (97.4 F) 05/22/2024 2:57 PM COAL GASIFICATION TECHNICIAN Respiratory Rate 24 05/22/2024 4:31 PM COAL GASIFICATION TECHNICIAN Oxygen Saturation 95% 05/22/2024 4:31 PM COAL GASIFICATION TECHNICIAN Inhaled Oxygen Concentration - - Weight 88.5 kg (195 lb) 05/22/2024 2:57 PM COAL GASIFICATION TECHNICIAN Height 162.6 cm (5' 4 ) 05/22/2024 2:57 PM COAL GASIFICATION TECHNICIAN Body Mass Index 33.47 05/22/2024 2:57 PM COAL GASIFICATION TECHNICIAN Functional Status Functional Status Response Date of [...] person have difficulty concentrating/remembering/making decisions? No 09/30/2022 Plan of Treatment Upcoming Encounters Date Type Department Care Team (Late st Contact Info) Description 08/26/2024 11:45 AM CDT Office Visit [facility] Vascular Surgery [address] [place] [address] Saad Adams MD [address] [place] [address] Procedures Procedure Name Priority Date/Time Associated Diagnosis Comments MAGNESIUM BLOOD STAT 05/22/2024 3:12 PM COAL GASIFICATION TECHNICIAN CK BLOOD STAT 05/22/2024 3:12 PM COAL GASIFICATION TECHNICIAN COMPREHENSIVE METABOLIC PANEL STAT 05/22/2024 3:12 PM COAL GASIFICATION TECHNICIAN CBC W AUTO DIFFERENTIAL STAT 05/22/2024 3:12 PM COAL GASIFICATION TECHNICIAN VAS RIGHT VENOUS DUPLEX LE STAT 05/22/2024 2:07 PM COAL GASIFICATION TECHNICIAN Right leg swelling D-DIMER STAT 05/21/2024 7:44 PM COAL GASIFICATION TECHNICIAN COMPREHENSIVE METABOLIC PANEL STAT 05/21/2024 4:48 PM COAL GASIFICATION TECHNICIAN CBC W AUTO DIFFERENTIAL STAT 05/21/2024 4:48 PM COAL GASIFICATION TECHNICIAN MAMMO BILAT SCREENING W RICKI Routine 05/21/2023 3:50 PM COAL GASIFICATION TECHNICIAN Encounter for screening mammogram for malignant neoplasm of breast from Last 3 Months or Most Recently Relevant to Health Maintenance Results * (ABNORMAL) CBC W AUTO DIFFERENTIAL (05/22/2024 3:12 PM COAL GASIFICATION TECHNICIAN) Only the most recent of2 resultswithin the time period is included. WBC 10.9(H) 4.0 - 10.7 x10E9/L 05/22/2024 3:44 PM COAL GASIFICATION TECHNICIAN [facility] RBC Count 3.91 3.90 - 5.20 x10E12/L 05/22/2024 3:44 PM [facility] Hemoglobin 12.2 11.9 - 15.8 g/dL 05/22/2024 3:44 PM [facility] Hematocrit 36.8 34.8 - 46.1 % 05/22/2024 3:44 PM [facility] MCV 94.1 80.0 - 98.0 fL 05/22/2024 3:44 PM [facility] MCH 31.2 26.7 - 33.6 pg 05/22/2024 3:44 PM [facility] MCHC 33.2 31.7 - 36.3 g/dL 05/22/2024 3:44 PM [facility] RDW-CV 13.9 11.3 - 14.8 % 05/22/2024 3:44 PM [facility] Platelet Count 198 150 - 420 x10E9/L 05/22/2024 3:44 PM [facility] MPV 9.6 7.8 - 11.4 fL 05/22/2024 3:44 PM [facility] Neutrophil % 79.2(H) 41.0 - 74.0 % 05/22/2024 3:44 PM [facility] Lymphocyte % 10.1(L) 17.0 - 47.0 % 05/22/2024 3:44 PM [facility] Monocyte % 9.0 3.0 - 11.0 % 05/22/2024 3:44 PM [facility] Eosinophil % 0.9 0.0 - 7.0 % 05/22/2024 3:44 PM [facility] Basophil % 0.3 0.0 - 1.6 % 05/22/2024 3:44 PM [facility] Immature Granulocytes % 0.5 0.0 - 1.0 % 05/22/2024 3:44 PM [facility] Neutrophil Absolute 8.63(H) 1.60 - 7.50 x10E9/L 05/22/2024 3:44 PM [facility] Lymphocyte Absolute 1.10 1.00 - 4.40 x10E9/L 05/22/2024 3:44 PM [facility] Monocyte Absolute 0.98 0.15 - 1.00 x10E9/L 05/22/2024 3:44 PM [facility] Eosinophil Absolute 0.10 0.00 - 0.60 x10E9/L 05/22/2024 3:44 PM [facility] Basophil Absolute 0.03 0.00 - 0.13 x10E9/L 05/22/2024 3:44 PM [facility] Blood BLOOD SPECIMEN / Unknown Venipuncture / Unknown 05/22/2024 3:12 PM COAL GASIFICATION TECHNICIAN 05/22/2024 3:40 PM COAL GASIFICATION TECHNICIAN Carly Murphy PA-C LAB - HEMATOLOGY OR DERABLES [facility] [address] [place] [address] * (ABNORMAL) COMPREHENSIVE METABOLIC PANEL (05/22/2024 3:12 PM COAL GASIFICATION TECHNICIAN) Only the most recent of2 resultswithin the time period is included. Glucose 141(H) 70 - 99 mg/dL 05/22/2024 4:00 PM [facility] Sodium 141 136 - 145 mmol/L 05/22/2024 4:00 PM [facility] Potassium 3.8 3.5 - 5.1 mmol/L 05/22/2024 4:00 PM [facility] Chloride 108(H) 98 - 107 mmol/L 05/22/2024 4:00 PM [facility] CO2 24 22 - 29 mmol/L 05/22/2024 4:00 PM [facility] Calcium 9.1 8.4 - 10.4 mg/dL 05/22/2024 4:00 PM [facility] Anion Gap 9 6 - 16 mmol/L 05/22/2024 4:00 PM [facility] BUN 23 7 - 26 mg/dL 05/22/2024 4:00 PM [facility] Creatinine 0.98 0.57 - 1.11 mg/dL 05/22/2024 4:00 PM [facility] Alkaline Phosphatase 109 40 - 150 U/L 05/22/2024 4:00 PM [facility] ALT 16 0 - 55 U/L 05/22/2024 4:00 PM [facility] AST 16 5 - 34 U/L 05/22/2024 4:00 PM COAL GASIFICATION TECHNICIAN [facility] Protein Total 7.0 6.4 - 8.3 gm/dL 05/22/2024 4:00 PM COAL GASIFICATION TECHNICIAN [facility] Albumin 3.4 3.4 - 5.0 gm/dL 05/22/2024 4:00 PM COAL GASIFICATION TECHNICIAN [facility] Bilirubin Total 0.6 0.2 - 1.2 mg/dL 05/22/2024 4:00 PM COAL GASIFICATION TECHNICIAN [facility] eGFR by CKD-EPI 67(L) >=90 mL/min/1.7 3 m2 05/22/2024 4:00 PM COAL GASIFICATION TECHNICIAN [facility] Blood BLOOD SPECIMEN / Unknown Venipuncture / Unknown 05/22/2024 3:12 PM COAL GASIFICATION TECHNICIAN 05/22/2024 3:40 PM COAL GASIFICATION TECHNICIAN Carly Murphy PA-C LAB - CHEMISTRY ORD ERABLES Performing Organization Address City/[facility] Co de Phone Number [facility] [phone] [place] [phone] * MAGNESIUM BLOOD (05/22/2024 3:12 PM COAL GASIFICATION TECHNICIAN) Magnesium 2.0 1.6 - 2.6 mg/dL 05/22/2024 4:00 PM COAL GASIFICATION TECHNICIAN [facility] Blood BLOOD SPECIMEN / Unknown Venipuncture / Unknown 05/22/2024 3:12 PM COAL GASIFICATION TECHNICIAN 05/22/2024 3:40 PM COAL GASIFICATION TECHNICIAN Carly Murphy PA-C LAB - CHEMISTRY ORD ERABLES [facility] [address] [place], [place] [id number] * CK BLOOD (05/22/2024 3:12 PM COAL GASIFICATION TECHNICIAN) CK 60 29 - 168 U/L 05/22/2024 4:00 PM COAL GASIFICATION TECHNICIAN [facility] Blood BLOOD SPECIMEN / Unknown Venipuncture / Unknown 05/22/2024 3:12 PM COAL GASIFICATION TECHNICIAN 05/22/2024 3:40 PM COAL GASIFICATION TECHNICIAN Carly Murphy PA-C LAB - CHEMISTRY ORD ERABLES [facility] [address] [place] [address] * VAS Right Venous Duplex Le (05/22/2024 2:07 PM COAL GASIFICATION TECHNICIAN) Anatomical Region Laterality Modality Lower Extremity Ultrasound 05/22/2024 1:47 PM COAL GASIFICATION TECHNICIAN Narrative Procedure Note Catalino Blanca MD - 05/25/2024 [facility] [address] [place] [address] Lower Extremity Venous Ultrasound Report Pat.Name: MAR PENNINGTON Pat.ID: [id number] St.Date: 05/22/2024 Exam Time: 1:47:00 PM Study Type:LE Venous Age: 2 1965,58Y Sex: FEMALE Sonogrphr: Noah Burgess RVT Pat. Stat.:Outpatient Room: ED WR Reason for Study: Swelling -Leg, right History / Clinical: History of DVT, Limb pain at rest, Pulmonary Emboli, Smoking - quit >6mo. Procedures: Lower Extremity Venous - Right Race: [facility] Visit ID: [id number] ++++++++++++++++++++++++++++++++++++ SUMMARY: ++++++++++++++++++++++++++++++++++++ Chronic DVT right lower [...] BLES * (ABNORMAL) D-DIMER (05/21/2024 7:44 PM COAL GASIFICATION TECHNICIAN) D-Dimer 0.75(H) 0.27 - 0.50 ug/mL FEU 05/21/2024 8:01 PM COAL GASIFICATION TECHNICIAN [facility] Blood BLOOD SPECIMEN / Unknown Venipuncture / Unknown 05/21/2024 7:44 PM COAL GASIFICATION TECHNICIAN 05/21/2024 7:48 PM COAL GASIFICATION TECHNICIAN Narrative [facility] - 05/21/2024 8:01 PM COAL GASIFICATION TECHNICIAN In the absence of clinical symptoms, a value less than or equal to 0.5 mcg/mL FEU significantly decreases the probability of PE/DVT (negative predictive value >95%). 1 mcg/ml FEU = 1 Fibrinogen Equivalent Unit (approximates 0.5 mcg/mL of D- dimer). Orquidea BOOKER LAB - COAGULATION OR DERABLES [facility] [address] [place], [place] [id number] * MAMMO BILAT SCREENING W RICKI (05/21/2023 3:50 PM COAL GASIFICATION TECHNICIAN) Anatomical Region Laterality Modality Breast Bilateral Mammography 05/22/2023 8:16 AM COAL GASIFICATION TECHNICIAN Impressions 05/22/2023 8:18 AM COAL GASIFICATION TECHNICIAN : Annual screening mammography is recommended. OVERALL FINAL ASSESSMENT: BI-RADS Category 1: Negative. > Interpreting Provider: Rosalinda August MD on 05/22/2023 8:18 AM Narrative 05/22/2023 8:18 AM COAL GASIFICATION TECHNICIAN EXAMINATION: BILATERAL DIGITAL SCREENING MAMMOGRAM AND BILATERAL [...] no suspicious finding in either breast. An Mpibpa-d-Inaf catheter is noted in the right superior breast on the right MLOAX view. Franko Goodrich MD MAMMO ORDERABLES from Last 3 Months or Most Recently Relevant to Health Maintenance Advance Directives Documents on File Type Date Recorded Patient Spike Machine Operator Expl anation Adv Directive/Living Will/POA 06/25/2023 2:37 PM LIVING WILL Adv Directive/Living Will/POA 02/21/2023 1:24 PM LIVING WILL DECLARAT ION 02/14/2023 * Full Code (Latest Code Status on File) Date Activated Date Inactivated Comments 09/30/2022 9:56 PM 10/19/2022 5:38 PM Care Teams Knotting Machine Operator Relationship Specialty Start Date End Date Anil Miner MD [address] [address] PCP - General Family Medicine 04/09/23
--- OUTSIDE RECORDS SUMMARY | 2024-08-03 11:51 | XMS_ITS | Encounter Summary ---
Author Organization [facility] Address [address] [place] [address] Care Team Providers Care Director Craft Center Name Role Phone Pcp, None Primary Care Provider Anil Larsen MD Primary Care Provider + Encounter Details Date Type Department Care Team (Late st Contact Info) Description 01/25/2023 Telephone [facility] [address] [place] [address] La Solomon, RN Social History Tobacco Use Types Packs/Day Years [...] Date Recorded Patient Health Questionnaire-2 Score 0 01/14/2023 [facility] [place] of Occupat ional Health - Occupational Stress [...] place to sleep or slept in a prison (including now)? No 09/30/2022 Sex and Gender [...] No 09/30/2022 documented as of this encounter Progress Notes * La Solomon, RN - 01/25/2023 8:27 AM CDT Called Rosi to remind her to call and schedule IVC filter removal. She needs to schedule between chemo cycles. La Solomon RN IVR Coordinator. documented in this encounter Plan of Treatment Upcoming Encounters Date Type Department Care Team (Late st Contact Info) Description 08/26/2024 11:45 AM CDT Office Visit [facility] Vascular Surgery [address], [facility] [address] [place] [address] Saad Adams MD [address] [facility] [address] [place] [address] documented as of this encounter Visit Diagnoses Not on filedocumented in this encounter Care Teams Director Craft Center Relationship Specialty Start Date End Date Pcp, None [address] [place] [address] PCP - General 10/31/22 04/08/23 Anil Miner MD [address] [place] [id number] PCP - General Family Medicine 04/09/23 documented as of this encounter
--- OUTSIDE RECORDS SUMMARY | 2024-08-03 11:51 | XMS_ITS | Patient Health Summary ---
Author Organization [facility] Address [address] [place] [address] Care Team Providers Care Hydrodynamics Professor Name Role Phone Anil Miner MD Primary Care Provider + Note from [facility],non-owned Affiliates and Associated Physician Practices is amultiple site organization consisting of ambulatory clinics and hospital sitesin [place], [place], [place] and [place]. This disclosure is being madepursuant to the Care Everywhere program and may not contain all information available regarding this patient. Last updated 18.[facility] Allergies * Lemon Flavor(Nausea and/or Vomiting,Headache) -Medium Criticality Medications * Be aware that medications may not be up to date on this document. Alwaysverify current medications with the patient. * simethicone (Mylicon) 80 MG chew tablet(Started 10/19/2022) Take 1 (one) tablet by mouth every 6 hours as needed for Gas Pain * venlafaxine XR 24hr (Effexor XR) 75 MG capsule(Started 12/03/2021) * apixaban (Eliquis) 5 MG tablet(Started 11/21/2022) Take 1 (one) tablet by mouth 2 times daily * ondansetron, disintegrating, (Zofran ODT) 4 MG tablet(Started 12/03/2022) Take 1 (one) tablet by mouth every 6 hours as needed for Nausea/Vomiting Allow tablet to dissolve on the tongue * haloperidol (Haldol) 5 MG tablet(Started 12/19/2022) TAKE 1 (ONE) TABLET BY MOUTH 2 TIMES DAILY * prochlorperazine (Compazine) 10 MG tablet(Started 12/20/2022) Take 1 (one) tablet by mouth every 6 hours as needed for Nausea/Vomiting 6 refills by 12/20/2023 * ondansetron (Zofran) 8 MG tablet(Started 12/20/2022) Take 1 (one) tablet by mouth every 8 hours as needed for Nausea/Vomiting 6 refills by 12/20/2023 * lidocaine-prilocaine (Emla) 2.5-2.5 % cream(Started 12/20/2022) * oxyCODONE, immediate release, (Roxicodone) 5 MG tablet(Started 12/24/2022) Take 1 (one) tablet by mouth every 4 hours as needed * hydrOXYzine HCl (Atarax) 25 MG tablet(Started 02/14/2023) TAKE 1 (ONE) TABLET BY MOUTH 4 TIMES DAILY NEEDED * gabapentin (Neurontin) 100 MG capsule(Started 02/14/2023) TAKE 2 CAPSULES BY MOUTH 3 TIMES A DAY * clonazePAM (KlonoPIN) 0.5 MG tablet(Started 03/04/2023) TAKE 0.5 (ONE-HALF) TABLET BY MOUTH 3 TIMES DAILY NEEDED FOR ANXIETY * docusate sodium (Colace) 100 MG capsule(Started 03/04/2023) TAKE 1 CAPSULE BY MOUTH TWICE A DAY * traZODone (Desyrel) 50 MG tablet(Started 03/04/2023) TAKE 1/2 TABLET BY MOUTH NIGHTLY NEEDED FOR INSOMNIA. IF NOT ASLEEP 1 HOUR AFTER TAKING MELATONIN 1 refill by 03/03/2024 * iron polysaccharides (Niferex 150) 150 MG capsule(Started 03/18/2023) TAKE 1 CAPSULE BY MOUTH EVERY DAY 1 refill by 03/17/2024 * FLUoxetine (PROzac) 20 MG capsule(Started 03/28/2023) TAKE 1 CAPSULE BY MOUTH EVERY DAY 1 refill by 03/27/2024 * dexAMETHasone (Decadron) 4 MG tablet(Started 04/29/2023) Take 2 tablets by mouth once a day on days 2, 3 and 4 of each 21 day cycle. Reasons: Nausea and Vomiting caused by Cancer Chemotherapy 2 refills by 04/28/2024 * OLANZapine (ZyPREXA) 5 MG tablet(Started 04/29/2023) Take 1 (one) tablet by mouth as directed at bedtime on days 1 through 4 of each 21 day cycle. Reasons: Nausea and Vomiting caused by Cancer Chemotherapy 2 refills by 04/28/2024 * phentermine (Adipex-P) 37.5 MG tablet(Started 05/09/2023) TAKE 1 TABLET BY MOUTH DAILY MUST ADMINISTER 30 MINUTES BEFORE OR 1 TO 2 HOURS AFTER BREAKFAST * support hose thigh high closed toe (Teds) support hose(Started 05/22/2024) Apply 1 (one) Each to affected area as directed Active Problems Problem Noted Date Diagnosed Date [...] Recorded Patient Health Questionnaire-2 Score 0 07/08/2023 [facility] - Occupational Stress [...] place to sleep or slept in a assisted (including now)? No 09/30/2022 Sex and Gender Information Value Date Recorded Sex Assigned at Female 12/11/2022 11:43 AM CDT Gender Identity Not on file Sexual Orientation Not on file Last Filed Vital Signs Vital Sign Reading Time Taken Comments Blood Pressure 131/84 05/22/2024 4:31 PM [employer] Pulse 82 05/22/2024 4:31 PM [employer]IC[employer] Temperature 36.3 C (97.4 F) 05/22/2024 2:57 PM [employer]ATION [employer]ICER Respiratory Rate 24 05/22/2024 4:31 PM [employer]ATION [employer]ER Oxygen Saturation 95% 05/22/2024 4:31 PM [employer]ATION [employer]ER Inhaled Oxygen Concentration - - Weight 88.5 kg (195 lb) 05/22/2024 2:57 PM [employer]ATION OFFICER Height 162.6 cm (5' 4 ) 05/22/2024 2:57 PM [employer]ATION [employer]ER Body Mass Index 33.47 05/22/2024 2:57 PM [employer]ICER Procedures * MAGNESIUM BLOOD(Performed 05/22/2024) * CK BLOOD(Performed 05/22/2024) * COMPREHENSIVE METABOLIC PANEL(Performed 05/22/2024) * CBC W AUTO DIFFERENTIAL(Performed 05/22/2024) * VAS RIGHT VENOUS DUPLEX LE(Performed 05/22/2024) Performed for Right leg swelling * D-DIMER(Performed 05/21/2024) * COMPREHENSIVE METABOLIC PANEL(Performed 05/21/2024) * CBC W AUTO DIFFERENTIAL(Performed 05/21/2024) * CANCER ANTIGEN (CA)125 BLOOD(Performed 04/06/2024) Performed for Endometrial carcinoma (HCC) * CANCER ANTIGEN (CA)125 BLOOD(Performed 01/06/2024) Performed for Endometrial carcinoma (HCC) * PET CT SKULL TO MID THIGH(Performed 07/17/2023) Performed for Lung nodules * CT CHEST ABDOMEN PELVIS W CONT(Performed 07/04/2023) Performed for Endometrial carcinoma (HCC) * COMPREHENSIVE METABOLIC PANEL(Performed 07/04/2023) Performed for Endometrial carcinoma (HCC) * MAGNESIUM BLOOD(Performed 07/04/2023) Performed for Endometrial carcinoma (HCC) * CBC W AUTO DIFFERENTIAL (CANCER CARE)(Performed 07/04/2023) Performed for Endometrial carcinoma (HCC) * CANCER ANTIGEN (CA)125 BLOOD(Performed 07/04/2023) Performed for Endometrial carcinoma (HCC) * TRANSFUSE RED BLOOD CELL LEUKOREDUCED UNIT(S)(Performed 06/26/2023) * TRANSFUSE RED BLOOD CELL LEUKOREDUCED UNIT(S)(Performed 06/26/2023) * PREPARE RBC LEUKOREDUCED UNIT(Performed 06/26/2023) Performed for Endometrial carcinoma (HCC), Anemia requiring transfusions * TYPE + SCREEN PANEL(Performed 06/25/2023) Performed for Anemia requiring transfusions, Endometrial carcinoma (HCC) * CBC W AUTO DIFFERENTIAL (CANCER CARE)(Performed 06/25/2023) Performed for Endometrial carcinoma (HCC) * CBC W AUTO DIFFERENTIAL (CANCER CARE)(Performed 06/18/2023) Performed for Endometrial carcinoma (HCC) * CBC W AUTO DIFFERENTIAL (CANCER CARE)(Performed 06/10/2023) Performed for Endometrial carcinoma (HCC) * COMPREHENSIVE METABOLIC PANEL(Performed 06/07/2023) Performed for Endometrial carcinoma (HCC) * MAGNESIUM BLOOD(Performed 06/07/2023) Performed for Endometrial carcinoma (HCC) * CANCER ANTIGEN (CA)125 BLOOD(Performed 06/07/2023) Performed for Endometrial carcinoma (HCC) * CBC W AUTO DIFFERENTIAL (CANCER CARE)(Performed 06/07/2023) Performed for Endometrial carcinoma (HCC) * CBC W AUTO DIFFERENTIAL (CANCER CARE)(Performed 06/03/2023) Performed for Endometrial carcinoma (HCC) * CBC W AUTO DIFFERENTIAL (CANCER CARE)(Performed 05/28/2023) Performed for Endometrial carcinoma (HCC) * MAMMO BILAT SCREENING W RICKI(Performed 05/21/2023) Performed for Encounter for screening mammogram for malignant neoplasm of breast * CBC W AUTO DIFFERENTIAL (CANCER CARE)(Performed 05/21/2023) Performed for Endometrial carcinoma (HCC) * COMPREHENSIVE METABOLIC PANEL(Performed 05/17/2023) Performed for Endometrial carcinoma (HCC) * MAGNESIUM BLOOD(Performed 05/17/2023) Performed for Endometrial carcinoma (HCC) * CANCER ANTIGEN (CA)125 BLOOD(Performed 05/17/2023) Performed for Endometrial carcinoma (HCC) * CBC W AUTO DIFFERENTIAL (CANCER CARE)(Performed 05/17/2023) Performed for Endometrial carcinoma (HCC) * CBC W AUTO DIFFERENTIAL (CANCER CARE)(Performed 05/13/2023) Performed for Endometrial carcinoma (HCC) * CBC W AUTO DIFFERENTIAL (CANCER CARE)(Performed 05/06/2023) Performed for Endometrial carcinoma (HCC) * CBC W AUTO DIFFERENTIAL (CANCER CARE)(Performed 04/26/2023) Performed for Endometrial carcinoma (HCC) * COMPREHENSIVE METABOLIC PANEL(Performed 04/26/2023) Performed for Endometrial carcinoma (HCC) * MAGNESIUM BLOOD(Performed 04/26/2023) Performed for Endometrial carcinoma (HCC) * CANCER ANTIGEN (CA)125 BLOOD(Performed 04/26/2023) Performed for Endometrial carcinoma (HCC) * IR IVC FILTER REMOVAL(Performed 04/01/2023) Performed for Acute deep vein thrombosis (DVT) of right lower extremity, unspecified vein (HCC) * BASIC METABOLIC PANEL (CALCIUM TOTAL)(Performed 04/01/2023) Performed for Presence of IVC filter * PT-INR(Performed 04/01/2023) Performed for Presence of IVC filter * CBC W AUTO DIFFERENTIAL(Performed 04/01/2023) Performed for Presence of IVC filter * RAD ONC ARIA SESSION SUMMARY(Performed 03/22/2023) * RAD ONC ARIA SESSION SUMMARY(Performed 03/21/2023) * RAD ONC ARIA SESSION SUMMARY(Performed 03/20/2023) * CBC W AUTO DIFFERENTIAL (CANCER CARE)(Performed 03/19/2023) Performed for Endometrial carcinoma (HCC) * RAD ONC ARIA SESSION SUMMARY(Performed 03/19/2023) * RAD ONC ARIA SESSION SUMMARY(Performed 03/18/2023) * RAD ONC ARIA SESSION SUMMARY(Performed 03/15/2023) * RAD ONC ARIA SESSION SUMMARY(Performed 03/14/2023) * RAD ONC ARIA SESSION SUMMARY(Performed 03/13/2023) * RAD ONC ARIA SESSION SUMMARY(Performed 03/12/2023) * RAD ONC ARIA SESSION SUMMARY(Performed 03/11/2023) * CBC W AUTO DIFFERENTIAL (CANCER CARE)(Performed 03/11/2023) Performed for Endometrial carcinoma (HCC) * RAD ONC ARIA SESSION SUMMARY(Performed 03/08/2023) * RAD ONC ARIA SESSION SUMMARY(Performed 03/07/2023) * RAD ONC ARIA SESSION SUMMARY(Performed 03/06/2023) * RAD ONC ARIA SESSION SUMMARY(Performed 03/05/2023) * CBC W AUTO DIFFERENTIAL (CANCER CARE)(Performed 03/04/2023) Performed for Endometrial carcinoma (HCC) * RAD ONC ARIA SESSION SUMMARY(Performed 03/04/2023) * RAD ONC ARIA SESSION SUMMARY(Performed 03/01/2023) * RAD ONC ARIA SESSION SUMMARY(Performed 02/28/2023) * RAD ONC ARIA SESSION SUMMARY(Performed 02/27/2023) * RAD ONC ARIA SESSION SUMMARY(Performed 02/26/2023) * RAD ONC ARIA SESSION SUMMARY(Performed 02/25/2023) * CBC W AUTO DIFFERENTIAL (CANCER CARE)(Performed 02/25/2023) Performed for Endometrial carcinoma (HCC) * RAD ONC ARIA SESSION SUMMARY(Performed 02/22/2023) * RAD ONC ARIA SESSION SUMMARY(Performed 02/21/2023) * RAD ONC ARIA SESSION SUMMARY(Performed 02/20/2023) * RAD ONC ARIA SESSION SUMMARY(Performed 02/19/2023) * CBC W AUTO DIFFERENTIAL (CANCER CARE)(Performed 02/18/2023) Performed for Endometrial carcinoma (HCC) * RAD ONC ARIA SESSION SUMMARY(Performed 02/18/2023) * CBC W AUTO DIFFERENTIAL (CANCER CARE)(Performed 02/11/2023) Performed for Endometrial carcinoma (HCC) * CANCER ANTIGEN (CA)125 BLOOD(Performed 02/01/2023) Performed for Endometrial carcinoma (HCC) * COMPREHENSIVE METABOLIC PANEL(Performed 02/01/2023) Performed for Endometrial carcinoma (HCC) * MAGNESIUM BLOOD(Performed 02/01/2023) Performed for Endometrial carcinoma (HCC) * CBC W AUTO DIFFERENTIAL (CANCER CARE)(Performed 02/01/2023) Performed for Endometrial carcinoma (HCC) * CBC W AUTO DIFFERENTIAL (CANCER CARE)(Performed 01/29/2023) Performed for Endometrial carcinoma (HCC) * CBC W AUTO DIFFERENTIAL (CANCER CARE)(Performed 01/21/2023) Performed for Endometrial carcinoma (HCC) * CBC W AUTO DIFFERENTIAL (CANCER CARE)(Performed 01/11/2023) Performed for Endometrial carcinoma (HCC) * COMPREHENSIVE METABOLIC PANEL(Performed 01/11/2023) Performed for Endometrial carcinoma (HCC) * MAGNESIUM BLOOD(Performed 01/11/2023) Performed for Endometrial carcinoma (HCC) * CANCER ANTIGEN (CA)125 BLOOD(Performed 01/11/2023) Performed for Endometrial carcinoma (HCC) * CBC W AUTO DIFFERENTIAL (CANCER CARE)(Performed 01/07/2023) Performed for Endometrial carcinoma (HCC) * COMPREHENSIVE METABOLIC PANEL(Performed 12/31/2022) Performed for Endometrial carcinoma (HCC) * MAGNESIUM BLOOD(Performed 12/31/2022) Performed for Endometrial carcinoma (HCC) * CBC W AUTO DIFFERENTIAL (CANCER CARE)(Performed 12/31/2022) Performed for Endometrial carcinoma (HCC) * CBC W AUTO DIFFERENTIAL (CANCER CARE)(Performed 12/20/2022) Performed for Endometrial carcinoma (HCC) * COMPREHENSIVE METABOLIC PANEL(Performed 12/20/2022) Performed for Endometrial carcinoma (HCC) * MAGNESIUM BLOOD(Performed 12/20/2022) Performed for Endometrial carcinoma (HCC) * IR JOAN CATH INSERT(Performed 12/13/2022) Performed for Endometrial carcinoma (HCC) * PT-INR(Performed 12/11/2022) Performed for Endometrial carcinoma (HCC) * BASIC METABOLIC PANEL (CALCIUM TOTAL)(Performed 12/11/2022) Performed for Endometrial carcinoma (HCC) * CBC W AUTO DIFFERENTIAL(Performed 12/11/2022) Performed for Endometrial carcinoma (HCC) * VAS RIGHT VENOUS DUPLEX LE(Performed 12/06/2022) Performed for Acute deep vein thrombosis (DVT) of right lower extremity, unspecified vein (HCC) * CARDIAC RHYTHM STRIP ORDER(Performed 10/22/2022) * MAGNESIUM BLOOD(Performed 10/19/2022) * RENAL FUNCTION PANEL(Performed 10/19/2022) * CBC W AUTO DIFFERENTIAL(Performed 10/19/2022) * MAGNESIUM BLOOD(Performed 10/18/2022) * RENAL FUNCTION PANEL(Performed 10/18/2022) * CBC W AUTO DIFFERENTIAL(Performed 10/18/2022) * OT EVAL AND TREAT(Performed 10/17/2022) * MAGNESIUM BLOOD(Performed 10/17/2022) * RENAL FUNCTION PANEL(Performed 10/17/2022) * CBC W AUTO DIFFERENTIAL(Performed 10/17/2022) * CYTOLOGY NON-FURNACE COMBINATION ANALYST PANEL (STL)(Performed 10/16/2022) Performed for Diagnosis unknown * ENDOTRACHEAL TUBE NOTE(Performed 10/16/2022) * PATHOLOGY TISSUE EXAM (STL)(Performed 10/16/2022) Performed for Diagnosis unknown * PERIPHERAL BLOCK(Performed 10/16/2022) * PA TOTAL ABDOM HYSTERECTOMY(Performed 10/16/2022) Performed for Diagnosis unknown * CBC W AUTO DIFFERENTIAL(Performed 10/16/2022) * BASIC METABOLIC PANEL (CALCIUM TOTAL)(Performed 10/16/2022) * TYPE + SCREEN PANEL(Performed 10/15/2022) * MRI BRAIN WO CONTRAST(Performed 10/15/2022) Performed for Endometrial carcinoma (HCC) * CBC W AUTO DIFFERENTIAL(Performed 10/15/2022) * BASIC METABOLIC PANEL (CALCIUM TOTAL)(Performed 10/15/2022) * URINE DRUG SCREEN IMMUNOASSAY(Performed 10/14/2022) * CBC W AUTO DIFFERENTIAL(Performed 10/14/2022) * BASIC METABOLIC PANEL (CALCIUM TOTAL)(Performed 10/14/2022) * TRANSFUSE RED BLOOD CELL LEUKOREDUCED UNIT(S)(Performed 10/13/2022) * PREPARE RBC LEUKOREDUCED UNIT(Performed 10/13/2022) * TRANSFUSE RED BLOOD CELL LEUKOREDUCED UNIT(S)(Performed 10/13/2022) * TRANSFUSE RED BLOOD CELL LEUKOREDUCED UNIT(S)(Performed 10/13/2022) * PREPARE RBC LEUKOREDUCED UNIT(Performed 10/13/2022) * HGB HCT PANEL(Performed 10/13/2022) * CBC W AUTO DIFFERENTIAL(Performed 10/13/2022) * BASIC METABOLIC PANEL (CALCIUM TOTAL)(Performed 10/13/2022) * CBC W/O DIFFERENTIAL(Performed 10/12/2022) * TYPE + SCREEN PANEL(Performed 10/12/2022) * CBC W AUTO DIFFERENTIAL(Performed 10/12/2022) * BASIC METABOLIC PANEL (CALCIUM TOTAL)(Performed 10/12/2022) * XR KNEE LEFT 2VW OR LESS(Performed 10/11/2022) Performed for Injury of left knee, sequela * HGB HCT PANEL(Performed 10/11/2022) * PTT(Performed 10/11/2022) * PTT(Performed 10/11/2022) * CBC W AUTO DIFFERENTIAL(Performed 10/11/2022) * PT-INR(Performed 10/11/2022) Performed for Acute deep vein thrombosis (DVT) of femoral vein of right lower extremity (HCC) * BASIC METABOLIC PANEL (CALCIUM TOTAL)(Performed 10/11/2022) * PTT(Performed 10/10/2022) * PTT(Performed 10/10/2022) * OT EVAL AND TREAT(Performed 10/10/2022) * CBC W AUTO DIFFERENTIAL(Performed 10/10/2022) * PTT(Performed 10/10/2022) Performed for Acute deep vein thrombosis (DVT) of femoral vein of right lower extremity (HCC) * PT-INR(Performed 10/10/2022) Performed for Acute deep vein thrombosis (DVT) of femoral vein of right lower extremity (HCC) * FIBRINOGEN ACTIVITY(Performed 10/10/2022) * PT EVAL AND TREAT(Performed 10/10/2022) * CBC W AUTO DIFFERENTIAL(Performed 10/10/2022) * FIBRINOGEN ACTIVITY(Performed 10/10/2022) * IRON + TRANSFERRIN PANEL(Performed 10/10/2022) Performed for Vaginal bleeding * TRANSFERRIN(Performed 10/10/2022) Performed for Vaginal bleeding * PTT(Performed 10/10/2022) * PT-INR(Performed 10/10/2022) * BASIC METABOLIC PANEL (CALCIUM TOTAL)(Performed 10/10/2022) * CBC W AUTO DIFFERENTIAL(Performed 10/09/2022) * FIBRINOGEN ACTIVITY(Performed 10/09/2022) * PTT(Performed 10/09/2022) * IR THROMBOLYSIS RECHECK(Performed 10/09/2022) Performed for Acute deep vein thrombosis (DVT) of femoral vein of right lower extremity (HCC) * PT-INR(Performed 10/09/2022) * CBC W AUTO DIFFERENTIAL(Performed 10/09/2022) * PTT(Performed 10/09/2022) * CBC W AUTO DIFFERENTIAL(Performed 10/09/2022) * PT-INR(Performed 10/09/2022) * FIBRINOGEN ACTIVITY(Performed 10/09/2022) * PTT(Performed 10/09/2022) * FIBRINOGEN ACTIVITY(Performed 10/09/2022) * BASIC METABOLIC PANEL (CALCIUM TOTAL)(Performed 10/09/2022) * PTT(Performed 10/09/2022) * PT-INR(Performed 10/09/2022) * FIBRINOGEN ACTIVITY(Performed 10/09/2022) * CBC W AUTO DIFFERENTIAL(Performed 10/09/2022) * PT-INR(Performed 10/08/2022) * PTT(Performed 10/08/2022) * CBC W AUTO DIFFERENTIAL(Performed 10/08/2022) * PTT(Performed 10/08/2022) Performed for Acute deep vein thrombosis (DVT) of femoral vein of right lower extremity (HCC) * FIBRINOGEN ACTIVITY(Performed 10/08/2022) Performed for Acute deep vein thrombosis (DVT) of femoral vein of right lower extremity (HCC) * B-TYPE NATRIURETIC PEPTIDE(Performed 10/08/2022) * TROPONIN I(Performed 10/08/2022) * IR THROMBOLYSIS VENOUS(Performed 10/08/2022) Performed for Deep vein thrombosis (DVT) of right lower extremity, unspecified chronicity, unspecified vein (HCC), Acute deep vein thrombosis (DVT) of femoral vein of right lower extremity (HCC) * PTT(Performed 10/08/2022) Performed for Acute deep vein thrombosis (DVT) of femoral vein of right lower extremity (HCC) * FIBRINOGEN ACTIVITY(Performed 10/08/2022) Performed for Acute deep vein thrombosis (DVT) of femoral vein of right lower extremity (HCC) * VAS RIGHT VENOUS DUPLEX LE(Performed 10/08/2022) Performed for Acute deep vein thrombosis (DVT) of femoral vein of right lower extremity (HCC) * CBC W/O DIFFERENTIAL(Performed 10/08/2022) * RENAL FUNCTION PANEL(Performed 10/06/2022) * CBC W AUTO DIFFERENTIAL(Performed 10/06/2022) * PT EVAL AND TREAT(Performed 10/05/2022) * RENAL FUNCTION PANEL(Performed 10/05/2022) * CBC W AUTO DIFFERENTIAL(Performed 10/05/2022) * PTT(Performed 10/05/2022) * PT-INR(Performed 10/05/2022) * PTT(Performed 10/04/2022) * PTT(Performed 10/04/2022) * PATHOLOGY TISSUE EXAM (STL)(Performed 10/04/2022) Performed for Diagnosis unknown * LARYNGEAL MASK AIRWAY(Performed 10/04/2022) * DILATION AND CURETTAGE (D&C) / SUCTION(Performed 10/04/2022) * RENAL FUNCTION PANEL(Performed 10/04/2022) * CBC W AUTO DIFFERENTIAL(Performed 10/04/2022) * PTT(Performed 10/04/2022) * PT-INR(Performed 10/04/2022) * PTT(Performed 10/03/2022) * PTT(Performed 10/03/2022) * PTT(Performed 10/03/2022) Performed for Acute pulmonary embolism, unspecified pulmonary embolism type, unspecified whether acute cor pulmonale present (HCC) * MAGNESIUM BLOOD(Performed 10/03/2022) * PTT(Performed 10/03/2022) Performed for Acute pulmonary embolism, unspecified pulmonary embolism type, unspecified whether acute cor pulmonale present (HCC) * RENAL FUNCTION PANEL(Performed 10/03/2022) * CBC W AUTO DIFFERENTIAL(Performed 10/03/2022) * PT-INR(Performed 10/03/2022) * HGB HCT PANEL(Performed 10/02/2022) * PTT(Performed 10/02/2022) * PTT(Performed 10/02/2022) * IR TRANSLUM THROMBECTOMY VENOUS(Performed 10/02/2022) Performed for Acute deep vein thrombosis (DVT) of femoral vein of right lower extremity (HCC), Acute embolism and thrombosis of right femoral vein (HCC) * PTT(Performed 10/02/2022) * PT-INR(Performed 10/02/2022) * CBC W AUTO DIFFERENTIAL(Performed 10/02/2022) * PTT(Performed 10/01/2022) * PTT(Performed 10/01/2022) * CT OUTSIDE CONSULTATION(Performed 10/01/2022) Performed for Acute pulmonary embolism, unspecified pulmonary embolism type, unspecified whether acute cor pulmonale present (HCC), Vaginal bleeding, Uterine mass * PATHOLOGY TISSUE EXAM (STL)(Performed 10/01/2022) Performed for Vaginal bleeding, Uterine mass * PAP IG LB+HPV APTIMA(Performed 10/01/2022) Performed for Vaginal bleeding, Uterine mass * PTT(Performed 10/01/2022) Performed for Deep vein thrombosis (DVT) of right lower extremity, unspecified chronicity, unspecified vein (HCC) * PTT(Performed 10/01/2022) * PT-INR(Performed 10/01/2022) * CBC W AUTO DIFFERENTIAL(Performed 10/01/2022) * COMPREHENSIVE METABOLIC PANEL(Performed 10/01/2022) * MAGNESIUM BLOOD(Performed 10/01/2022) * PHOSPHORUS BLOOD(Performed 10/01/2022) * TRICHOMONAS VAGINALIS AMPLIFIED PROBE(Performed 10/01/2022) Performed for Vaginal bleeding * CHLAMYDIA + GC AMPLIFIED PROBE(Performed 10/01/2022) Performed for Vaginal bleeding * TYPE + SCREEN PANEL(Performed 09/30/2022) * RETIC COUNT(Performed 09/30/2022) * LDH BLOOD(Performed 09/30/2022) * LACTIC ACID BLOOD(Performed 09/30/2022) * PHOSPHORUS BLOOD(Performed 09/30/2022) * MAGNESIUM BLOOD(Performed 09/30/2022) * COMPREHENSIVE METABOLIC PANEL(Performed 09/30/2022) * PTT(Performed 09/30/2022) * PT-INR(Performed 09/30/2022) * CBC W AUTO DIFFERENTIAL(Performed 09/30/2022) * TRANSFUSE RED BLOOD CELL LEUKOREDUCED UNIT(S) Results * (ABNORMAL) CBC W AUTO DIFFERENTIAL (05/22/2024 3:12 PM [employer]IC[employer]) Only the most recent of27 resultswithin the time period is included. WBC 10.9(H) 4.0 - 10.7 x10E9/L 05/22/2024 3:44 PM [employer]ATION [employer]IC[employer] [facility] RBC Count 3.91 3.90 - 5.20 x10E12/L 05/22/2024 3:44 PM [employer]IC[employer] [facility] Hemoglobin 12.2 11.9 - 15.8 g/dL 05/22/2024 3:44 PM [employer]IC[employer] [facility] Hematocrit 36.8 34.8 - 46.1 % 05/22/2024 3:44 PM [employer]IC[employer] [facility] MCV 94.1 80.0 - 98.0 fL 05/22/2024 3:44 PM [employer]IC[employer] [facility] MCH 31.2 26.7 - 33.6 pg 05/22/2024 3:[address] [facility] MCHC 33.2 31.7 - 36.3 g/dL 05/22/2024 3:[address] [facility] RDW-CV 13.9 11.3 - 14.8 % 05/22/2024 3:[address] [facility] Platelet Count 198 150 - 420 x10E9/L 05/22/2024 3:[address] [facility] MPV 9.6 7.8 - 11.4 fL 05/22/2024 3:[address] [facility] Neutrophil % 79.2(H) 41.0 - 74.0 % 05/22/2024 3:[address] [facility] Lymphocyte % 10.1(L) 17.0 - 47.0 % 05/22/2024 3:[address] [facility] Monocyte % 9.0 3.0 - 11.0 % 05/22/2024 3:[address] [facility] Eosinophil % 0.9 0.0 - 7.0 % 05/22/2024 3:[address] [facility] Basophil % 0.3 0.0 - 1.6 % 05/22/2024 3:[address] [facility] Immature Granulocytes % 0.5 0.0 - 1.0 % 05/22/2024 3:[address] [facility] Neutrophil Absolute 8.63(H) 1.60 - 7.50 x10E9/L 05/22/2024 3:[address] [facility] Lymphocyte Absolute 1.10 1.00 - 4.40 x10E9/L 05/22/2024 3:[address] [facility] Monocyte Absolute 0.98 0.15 - 1.00 x10E9/L 05/22/2024 3:[address] [facility] Eosinophil Absolute 0.10 0.00 - 0.60 x10E9/L 05/22/2024 3:[address] [facility] Basophil Absolute 0.03 0.00 - 0.13 x10E9/L 05/22/2024 3:[address] [facility] Blood BLOOD SPECIMEN / Unknown Venipuncture / Unknown 05/22/2024 3:12 PM [employer] 05/22/2024 3:40 PM [employer] Carly Murphy PA-C LAB - HEMATOLOGY OR DERABLES [facility] [id number] [place] [address] * (ABNORMAL) COMPREHENSIVE METABOLIC PANEL (05/22/2024 3:12 PM [employer]) Only the most recent of12 resultswithin the time period is included. Glucose 141(H) 70 - 99 mg/dL 05/22/2024 4:[address] [facility] Sodium 141 136 - 145 mmol/L 05/22/2024 4:[address] [facility] Potassium 3.8 3.5 - 5.1 mmol/L 05/22/2024 4:[address] [facility] Chloride 108(H) 98 - 107 mmol/L 05/22/2024 4:[address] [facility] CO2 24 22 - 29 mmol/L 05/22/2024 4:[address] [facility] Calcium 9.1 8.4 - 10.4 mg/dL 05/22/2024 4:[address] [facility] Anion Gap 9 6 - 16 mmol/L 05/22/2024 4:[address] [facility] BUN 23 7 - 26 mg/dL 05/22/2024 4:[address] [facility] Creatinine 0.98 0.57 - 1.11 mg/dL 05/22/2024 4:[address] [facility] Alkaline Phosphatase 109 40 - 150 U/L 05/22/2024 4:[address] [facility] ALT 16 0 - 55 U/L 05/22/2024 4:[address] [facility] AST 16 5 - 34 U/L 05/22/2024 4:[address] [facility] Protein Total 7.0 6.4 - 8.3 gm/dL 05/22/2024 4:[address] [facility] Albumin 3.4 3.4 - 5.0 gm/dL 05/22/2024 4:[address] [facility] Bilirubin Total 0.6 0.2 - 1.2 mg/dL 05/22/2024 4:00 PM GUEST RELATION OFFICER [facility] eGFR by CKD-EPI 67(L) >=90 mL/min/1.7 3 m2 05/22/2024 4:00 PM GUEST RELATION OFFICER [facility] Blood BLOOD SPECIMEN / Unknown Venipuncture / Unknown 05/22/2024 3:12 PM GUEST RELATION OFFICER 05/22/2024 3:40 PM GUEST RELATION OFFICER Carly Murphy PA-C LAB - CHEMISTRY ORD ERABLES Performing Organization Address [facility] Co de Phone Number [facility] [id number] [place] [address] [phone] * MAGNESIUM BLOOD (05/22/2024 3:12 PM GUEST RELATION OFFICER) Only the most recent of15 resultswithin the time period is included. Magnesium 2.0 1.6 - 2.6 mg/dL 05/22/2024 4:00 PM GUEST RELATION OFFICER [facility] Blood BLOOD SPECIMEN / Unknown Venipuncture / Unknown 05/22/2024 3:12 PM GUEST RELATION OFFICER 05/22/2024 3:40 PM GUEST RELATION OFFICER Carly Murphy PA-C LAB - CHEMISTRY ORD ERABLES Performing Organization Address [facility] de Phone Number [facility] [address] [place] [address] [phone] * CK BLOOD (05/22/2024 3:12 PM GUEST RELATION OFFICER) CK 60 29 - 168 U/L 05/22/2024 4:00 PM GUEST RELATION OFFICER [facility] Blood BLOOD SPECIMEN / Unknown Venipuncture / Unknown 05/22/2024 3:12 PM GUEST RELATION OFFICER 05/22/2024 3:40 PM GUEST RELATION OFFICER Carly Murphy PA-C LAB - CHEMISTRY ORD ERABLES Performing Organization Address [facility] de Phone Number [facility] [address] [place] [address] [phone] * VAS Right Venous Duplex Le (05/22/2024 2:07 PM GUEST RELATION OFFICER) Only the most recent of3 resultswithin the time period is included. Anatomical Region Laterality Modality Lower Extremity Ultrasound 05/22/2024 1:47 PM GUEST RELATION OFFICER Narrative Procedure Note Catalino Blanca MD - 05/25/2024 [facility] [id number] [place] [id number] Lower Extremity Venous Ultrasound Report Pat.Name: MAR PENNINGTON Pat.ID: [id number] .Date: 05/22/2024 Exam Time: 1:47:00 PM Study Type:LE Venous Age: 2 1965,58Y Sex: FEMALE Sonogrphr: YVONNE Hernandez. Stat.:Outpatient Room: ED WR Reason for Study: Swelling -Leg, right History / Clinical: History of DVT, Limb pain at rest, Pulmonary Emboli, Smoking - quit >6mo. Procedures: Lower Extremity Venous - Right Race: [facility] Visit ID: [id number] ++++++++++++++++++++++++++++++++++++ SUMMARY: ++++++++++++++++++++++++++++++++++++ Chronic DVT right lower [...] BLES * (ABNORMAL) D-DIMER (05/21/2024 7:44 PM GUEST RELATION OFFICER) D-Dimer 0.75(H) 0.27 - 0.50 ug/mL FEU 05/21/2024 8:01 PM GUEST RELATION OFFICER [facility] Blood BLOOD SPECIMEN / Unknown Venipuncture / Unknown 05/21/2024 7:44 PM GUEST RELATION OFFICER 05/21/2024 7:48 PM GUEST RELATION OFFICER Narrative [facility] - 05/21/2024 8:01 PM GUEST RELATION OFFICER In the absence of clinical symptoms, a value less than or equal to 0.5 mcg/mL FEU significantly decreases the probability of PE/DVT (negative predictive value >95%). 1 mcg/ml FEU = 1 Fibrinogen Equivalent Unit (approximates 0.5 mcg/mL of D- dimer). Orquidea BOOKER LAB - COAGULATION OR DERABLES Performing Organization Address City/State/[facility] Co de Phone Number [facility] [address] [place] [address] * CANCER ANTIGEN ([place])125 BLOOD (04/06/2024 3:34 PM GUEST RELATION OFFICER) Only the most recent of8 resultswithin the time period is included. Pathologist [facility] [place] 125 10.7 0.0 - 38.1 U/mL [facility] INSURANCE BILL Comment: [employer] Electrochemiluminescence Immunoassay (ECLIA) Values obtained with different assay methods or kits cannot be used interchangeably. Results cannot be interpreted as absolute evidence of the presence or absence of malignant disease. Blood BLOOD SPECIMEN / Unknown 04/06/2024 3:34 PM GUEST RELATION OFFICER 04/06/2024 Comment:Blood Release to [facility] INSURANCE BILL - 04/07/2024 8:19 AM GUEST RELATION OFFICER Performed at: 01 - [facility] [address] [place], [place] [id number] Flavoring Machine Operator: Brandan Rodriguez PhD, Phone: [phone] Franko Goodrich MD LAB - CHEMISTRY NICOLE BENITEZ [facility] INSURANCE BILL [address] [place] [address] * PET CT SKULL TO MID THIGH (07/17/2023 4:24 PM GUEST RELATION OFFICER) Anatomical Region Laterality Modality Head, Lower Extremity Positron E mission Tomography (PET) 07/17/2023 4:55 PM GUEST RELATION OFFICER Impressions 07/18/2023 1:23 PM GUEST RELATION OFFICER IMPRESSION: The right lower lobe lung nodule demonstrates interval decrease in size and does not demonstrate increased FDG uptake, likely benign/infectious inflammatory. No hypermetabolic pulmonary nodule elsewhere. No PET/CT evidence of malignancy in the current study. Edited by Adali Zafar on 07/18/2023 10:06 AM > Interpreting Provider: Gita Hernández MD on 07/18/2023 1:23 PM Narrative 07/18/2023 1:23 PM GUEST RELATION OFFICER PET/CT IMAGING WITH HARDWARE FUSION Initial treatment strategy DATE: 07/17/2023 4:25 PM PRIOR EXAM: CT chest, abdomen and pelvis dated 07/04/2023. HISTORY: Pulmonary nodules identified on recent CT chest. Evaluate for malignancy. PROCEDURE: Radiopharmaceutical: 18-F FDG Injected activity: 8.5 mCi Injection site: Right antecubital Uptake time: 61 minutes Blood glucose: 150 mg/dL. CT scan type: Skull base through mid thigh. CT technique: Noncontrast CT for attenuation correction and anatomic localization. Axial, sagittal, coronal and MIP images reviewed. All SUVs reported are maximal within the region of interest and have units of MBq/mL. Scan quality: Satisfactory. FINDINGS: Significant PET/CT findings: The previously seen cluster of pulmonary nodules in the right lower lobe demonstrate interval decrease in size. These do not demonstrate increased FDG uptake. No definite evidence for hypermetabolic pulmonary nodule elsewhere. No pleural effusion or hypermetabolic pleural nodularity identified. No pericardial effusion seen. No mediastinal or hilar lymphadenopathy noted. Unremarkable thyroid gland. Incidental PET/CT findings: No abnormal head and neck mucosal lesion is seen. Clear paranasal sinuses. Symmetric uptake in both parotid and submandibular glands. No hypermetabolic or enlarged cervical or supraclavicular lymphadenopathy is identified. Right-sided port terminates within the superior vena cava. No abnormal breast uptake seen. Liver and spleen demonstrate expected parenchymal activity without focal lesion. Unremarkable adrenal glands, pancreas and gallbladder. No enlarged or hypermetabolic retroperitoneal, mesenteric or pelvic lymphadenopathy identified. No ascites or peritoneal nodule seen. Physiologic bowel activity. No bowel obstruction seen. There is increased uptake within the right gluteus muscles, likely physiologic. Status post hysterectomy noted. Fat stranding in the central pelvis identified. This is not associated with focal or nodular area of increased uptake. No inguinal lymphadenopathy seen. No focal hypermetabolic osseous lesion identified to suggest osseous metastasis. Procedure Note Gita Hernández MD - 07/18/2023 PET/CT IMAGING WITH HARDWARE FUSION Initial treatment strategy DATE: 07/17/2023 4:25 PM PRIOR EXAM: CT chest, abdomen and pelvis dated 07/04/2023. HISTORY: Pulmonary nodules identified on recent CT chest. Evaluate for malignancy. PROCEDURE: Radiopharmaceutical: 18-F FDG Injected activity: 8.5 mCi Injection site: Right antecubital Uptake time: 61 minutes Blood glucose: 150 mg/dL. CT scan type: Skull base through mid thigh. CT technique: Noncontrast CT for attenuation correction andanatomic localization. Axial, sagittal, coronal and MIP images reviewed. All SUVs reported are maximal within the region of interest and haveunits of MBq/mL. Scan quality: Satisfactory. FINDINGS: Significant PET/CT findings: The previously seen cluster of pulmonary nodules in the right lower lobe demonstrate interval decrease in size. These do not demonstrate increased FDG uptake. No definite evidence for hypermetabolic pulmonary nodule elsewhere. No pleural effusion or hypermetabolic pleural nodularity identified. No pericardial effusionseen. No mediastinal or hilar lymphadenopathy noted. Unremarkable thyroidgland. Incidental PET/CT findings: No abnormal head and neck mucosal lesion is seen. Clear paranasal sinuses. Symmetric uptake in both parotid and submandibular glands. No hypermetabolic or enlarged cervical or supraclavicular lymphadenopathy is identified. Right-sided portterminates within the superior vena cava. No abnormal breast uptake seen. Liver and spleen demonstrate expected parenchymal activity without focal lesion. Unremarkable adrenal glands, pancreas and gallbladder. No enlarged or hypermetabolic retroperitoneal, mesenteric or pelvic lymphadenopathy identified. No ascites or peritoneal nodule seen. Physiologic bowel activity. No bowel obstruction seen. There is increased uptake withinthe right gluteus muscles, likely physiologic. Status post hysterectomynoted. Fat stranding in the central pelvis identified. This is not associatedwith focal or nodular area of increased uptake. No inguinal lymphadenopathy seen. No focal hypermetabolic osseous lesion identified to suggestosseous metastasis. IMPRESSION: The right lower lobe lung nodule demonstrates interval decrease in sizeand does not demonstrate increased FDG uptake, likely benign/infectious inflammatory. No hypermetabolic pulmonary nodule elsewhere. No PET/CT evidence of malignancy in the current study. Edited by Adali Zafar on 07/18/2023 10:06 AM > Interpreting Provider: Gita Hernández MD on 07/18/2023 1:23 PM Franko Goodrich MD NM ORDERABLES * CT CHEST ABDOMEN PELVIS W CONT (07/04/2023 10:25 AM GUEST RELATION OFFICER) Anatomical Region Laterality Modality Chest, Abdomen, Pelvis Computed Tomography 07/04/2023 2:06 PM GUEST RELATION OFFICER Impressions 07/04/2023 3:45 PM GUEST RELATION OFFICER IMPRESSION: NEW FOCAL CLUSTER OF PULMONARY NODULES WITHIN THE POSTERIOR RIGHT LOWER LOBE. THE CT MORPHOLOGY FAVORS INFLAMMATORY LESIONS. RECOMMEND CT THORAX FOLLOW-UP IN 3 MONTHS FOR REASSESSMENT. NO EVIDENCE OF METASTATIC DISEASE TO THE ABDOMEN OR PELVIS. Code: [facility] Edited by Marilee Carl on 07/04/2023 2:21 PM > Interpreting Provider: Ramez Montez MD on 07/04/2023 3:45 PM Narrative 07/04/2023 3:45 PM GUEST RELATION OFFICER PROCEDURE: CT CHEST ABDOMEN PELVIS W CONT DATE/TIME OF EXAM: 07/04/2023 10:26 AM CLINICAL INFORMATION: None relevant/not provided if blank. Indication: C54.1: Malignant neoplasm of endometrium (CMS-HCC) Restaging endometrial cancer. COMPARISON: Outside CT thorax/abdomen/pelvis 09/30/2022. TECHNIQUE: CT of the chest, abdomen and pelvis was performed following intravenous contrast utilizing standard protocol. CT dose reduction technique was used, including Automated Exposure Control. CONTRAST: IOPAMIDOL 76 % IV SOLN:80 mL FINDINGS: CT THORAX: New focal cluster of nodules measuring up to 9 mm posterior right lower lobe (series 2A images 66-72). No other pulmonary nodules or masses. No confluent pulmonary infiltrates. No pleural mass. No pleural effusion. No pneumothorax. Normal heart size. No pericardial effusion. No pathologically enlarged lymph nodes. No osteoblastic or osteolytic lesions. Mild thoracic scoliosis convex to the right. CT ABDOMEN AND PELVIS: Interval hysterectomy. No recurrent pelvic mass. No adnexal lesions. Liver, gallbladder, adrenal glands, pancreas, and spleen are unremarkable. Stable small upper pole left renal cyst. Kidneys otherwise unremarkable. Small and large bowel loops normal in caliber. No bowel wall thickening. No pathologically enlarged lymph nodes. No osteoblastic or osteolytic lesions. Procedure Note Ramez Montez MD - 07/04/2023 PROCEDURE: CT CHEST ABDOMEN PELVIS W CONT DATE/TIME OF EXAM: 07/04/2023 10:26 AM CLINICAL INFORMATION: None relevant/not provided if blank. Indication: C54.1: Malignant neoplasm of endometrium (CMS-HCC) Restaging endometrial cancer. COMPARISON: Outside CT thorax/abdomen/pelvis 09/30/2022. TECHNIQUE: CT of the chest, abdomen and pelvis was performed following intravenous contrast utilizing standard protocol. CT dose reduction technique was used, including Automated ExposureControl. CONTRAST: IOPAMIDOL 76 % IV SOLN:80 mL FINDINGS: CT THORAX: New focal cluster of nodules measuring up to 9 mm posterior right lower lobe (series 2A images 66-72). No other pulmonary nodules or masses. No confluent pulmonary infiltrates. No pleural mass. No pleural effusion. No pneumothorax. Normal heart size. No pericardial effusion. No pathologically enlarged lymph nodes. No osteoblastic or osteolytic lesions. Mild thoracic scoliosis convex to the right. CT ABDOMEN AND PELVIS: Interval hysterectomy. No recurrent pelvic mass. No adnexal lesions. Liver, gallbladder, adrenal glands, pancreas, and spleen areunremarkable. Stable small upper pole left renal cyst. Kidneys otherwise unremarkable. Small and large bowel loops normal in caliber. No bowel wall thickening. No pathologically enlarged lymph nodes. No osteoblastic or osteolytic lesions. IMPRESSION: NEW FOCAL CLUSTER OF PULMONARY NODULES WITHIN THE POSTERIOR RIGHT LOWER LOBE. THE CT MORPHOLOGY FAVORS INFLAMMATORY LESIONS. RECOMMEND CT THORAX FOLLOW-UP IN 3 MONTHS FOR REASSESSMENT. NO EVIDENCE OF METASTATIC DISEASE TO THE ABDOMEN OR PELVIS. Code: [facility] Edited by Marilee Carl on 07/04/2023 2:21 PM > Interpreting Provider: Ramez Montez MD on 07/04/2023 3:45 PM [address] Good[address] MD CT ORDERABLES * (ABNORMAL) CBC W AUTO DIFFERENTIAL (CANCER CARE) (07/04/2023 8:41 AM GUEST RELATION OFFICER) Only the most recent of25 resultswithin the time period is included. WBC 3.2(L) 4.4 - 10.7 x10E9/L 07/04/2023 8:48 AM GUEST RELATION OFFICER [facility] Neutrophils % 78.6(H) 44.0 - 73.0 % 07/04/2023 8:48 AM GUEST RELATION OFFICER [facility] Lymphocytes % 10.9(L) 20.0 - 43.0 % 07/04/2023 8:48 AM GUEST RELATION OFFICER [facility] Monocytes % 9.0 5.0 - 13.0 % 07/04/2023 8:48 AM GUEST RELATION OFFICER [facility] Eosinophils % 1.2 0.0 - 6.0 % 07/04/2023 8:48 AM GUEST RELATION OFFICER [facility] Basophils % 0.3 0.0 - 2.0 % 07/04/2023 8:48 AM GUEST RELATION OFFICER [facility] Neutrophil Absolute 2.53 2.01 - 7.14 x10E9/L 07/04/2023 8:48 AM GUEST RELATION OFFICER [facility] Lymphocytes Absolute 0.35(L) 1.07 - 3.94 x10E9/L 07/04/2023 8:48 AM GUEST RELATION OFFICER [facility] Monocytes Absolute 0.29 0.26 - 1.07 x10E9/L 07/04/2023 8:48 AM GUEST RELATION OFFICER [facility] Eosinophils Absolute 0.04 0 - 0.47 x10E9/L 07/04/2023 8:48 AM GUEST RELATION OFFICER [facility] Basophils Absolute 0.01 0 - 0.08 x10E9/L 07/04/2023 8:48 AM GUEST RELATION OFFICER [facility] RBC 2.72(L) 3.80 - 5.20 x10E12/L 07/04/2023 8:48 AM GUEST RELATION OFFICER [facility] Hemoglobin 9.0(L) 12.0 - 15.6 gm/dL 07/04/2023 8:48 AM GUEST RELATION OFFICER [facility] Hematocrit 26.4(L) 35.9 - 45.5 % 07/04/2023 8:48 AM GUEST RELATION OFFICER [facility] MCV 97.1 80.7 - 98.3 fl 07/04/2023 8:48 AM GUEST RELATION OFFICER [facility] MCH 33.1 26.7 - 34.0 pg 07/04/2023 8:48 AM GUEST RELATION OFFICER [facility] MCHC 34.1 30.8 - 35.9 gm/dL 07/04/2023 8:48 AM GUEST RELATION OFFICER [facility] RDW-CV 16.7(H) 12.1 - 14.9 % 07/04/2023 8:48 AM GUEST RELATION OFFICER [facility] Platelet Count 60(L) 153 - 416 x10E9/L 07/04/2023 8:48 AM GUEST RELATION OFFICER [facility] MPV 9.9 9.4 - 12.9 fl 07/04/2023 8:48 AM GUEST RELATION OFFICER [facility] Blood BLOOD SPECIMEN / Unknown 07/04/2023 8:41 AM GUEST RELATION OFFICER 07/04/2023 8:41 AM GUEST RELATION OFFICER Franko Goodrich MD LAB - HEMATOLOGY ORD ERABLES [facility] [id number] [address] * TRANSFUSE RED BLOOD CELL LEUKOREDUCED UNIT(S) (06/26/2023 4:16 PM GUEST RELATION OFFICER) Franko Goodrich MD NURSING - BLOOD PROD TRANSFUSION * TRANSFUSE RED BLOOD CELL LEUKOREDUCED UNIT(S) (06/26/2023 11:51 AM GUEST RELATION OFFICER) Franko Goodrich MD NURSING - BLOOD PROD TRANSFUSION * PREPARE (CROSSMATCH) RBC UNIT(S), 2 Units (06/26/2023 9:22 AM GUEST RELATION OFFICER) Only the most recent of3 resultswithin the time period is included. Unit Description AS1 LR PRBC [facility] Unit ABO B [facility] Rh POS [facility] Product Number R43 [facility] Donor # [id number] [facility] Unit Status transfused [facility] Product Code [id number] [facility] Blood Type Barcode 7300 [facility] Expiration Date [id number] D [facility] Unit Description AS1 LR PRBC [facility] Unit ABO B [facility] Unit Rh POS [facility] Product Number R02 [facility] Unit Donor # [id number] [facility] Unit Status transfused [facility] Product Code [id number] [facility] Blood Type Barcode 7300 [facility] Expiration Date D [facility] Blood Bank BLOOD SPECIMEN / Unknown 06/25/2023 6:42 PM GUEST RELATION OFFICER Franko Goodrich MD LAB - BLOOD BANK ORD ERABLES [facility] [address] [phone] * TYPE + SCREEN PANEL (06/25/2023 3:24 PM GUEST RELATION OFFICER) Only the most recent of4 resultswithin the time period is included. ABO Rh B POS 06/25/2023 7:52 PM GUEST RELATION OFFICER [facility] Comment:History checked. Antibody Screen NEG 7:52 PM GUEST RELATION OFFICER [facility] Blood Bank BLOOD SPECIMEN / Unknown Venipuncture / Unknown 06/25/2023 3:24 PM GUEST RELATION OFFICER 06/25/2023 6:42 PM GUEST RELATION OFFICER Franko Goodrich MD LAB - BLOOD BANK ORD ERABLES [facility] [address] [place] [address], [facility] [phone] * MAMMO BILAT SCREENING W RICKI (05/21/2023 3:50 PM GUEST RELATION OFFICER) Anatomical Region Laterality Modality Breast Bilateral Mammography 05/22/2023 8:16 AM GUEST RELATION OFFICER Impressions 05/22/2023 8:18 AM GUEST RELATION OFFICER : Annual screening mammography is recommended. OVERALL FINAL ASSESSMENT: BI-RADS Category 1: Negative. > Interpreting Provider: Rosalinda August MD on 05/22/2023 8:18 AM Narrative 05/22/2023 8:18 AM GUEST RELATION OFFICER EXAMINATION: BILATERAL DIGITAL SCREENING MAMMOGRAM AND BILATERAL [...] no suspicious finding in either breast. An Qerkpz-e-Lnmi catheter is noted in the right superior breast on the right MLOAX view. Franko Goodrich MD MAMMO ORDERABLES * IR IVC FILTER REMOVAL (04/01/2023 12:29 PM GUEST RELATION OFFICER) Anatomical Region Laterality Modality Abdomen, Pelvis X-Ray Angiograph y 04/01/2023 1:06 PM GUEST RELATION OFFICER Impressions 04/01/2023 1:12 PM GUEST RELATION OFFICER Impression: Successful removal of a retrievable infrarenal IVC filter under fluoroscopic guidance, as described above. I, Dr. Ric Talamantes, was present and performed/supervised the entire procedure. Moderate sedation on this patient was ordered by me, administered intravenously in my presence, and monitored by the procedure nurse as an independent trained observer who was present throughout the procedure. The following parameters were monitored: oxygen saturation, heart rate, blood pressure, and response to care. Intra-service sedation start time was 1048 and end time was 1225 during which I was present. Total physician intra-service sedation time was 97 minutes. For details on pre moderate sedation and post moderate sedation patient evaluation, please review the evaluation forms in EPIC. For details on monitored clinical parameters during the intra-service sedation time, please review the procedure nurse documentation in [facility]. > Interpreting Provider: Ric Talamantes DO on 04/01/2023 1:12 PM Narrative 04/01/2023 1:12 PM GUEST RELATION OFFICER PROCEDURE: IR IVC FILTER REMOVAL DATE/TIME OF EXAM: 04/01/2023 12:42 PM Indication: I82.401: Acute embolism and thrombosis of unspecified deep veins of right lower extremity (CMS/HCC) Operators: 1.Dr. Ric Talamantes, Attending Physician 2.Dr. Anish Raymundo, Attending Physician Modifier 80 - Dr. Anish Raymundo was permit review assistant interventionalist who assisted me during the procedure. He was is present during the entire procedure or a substantial portion of the procedure as an permit review assistant to me, the operating physician. Anesthesia: 1.Local anesthesia - 10 mL of 1% lidocaine 2.Intravenous conscious sedation - Versed 3 mg and Fentanyl 150 mcg Procedure: 1.Ultrasound-guided access of the right internal jugular vein. 2.Inferior venacavogram. 3.Retrieval of an infrarenal argon option Elite inferior vena cava filter under fluoroscopic guidance. 4.Post-retrieval sheath inferior venacavogram. Fluoroscopic time: 32.3 minutes Contrast: 25 mL of [id number] Procedure in detail: The procedure, risks, and possible complications were explained to the patient in detail, and informed consent was obtained. The patient was placed supine on the angiographic table. The right neck was prepped and draped in the usual sterile manner. A stroboroma operator film of the abdomen was obtained, which demonstrated an IVC filter in the mid abdomen. The patient received intravenous Versed and Fentanyl for conscious sedation. A qualified radiology nurse monitored the patient s vital signs throughout the procedure. Limited ultrasound of the right neck demonstrated a patent and compressible right internal jugular vein. A hernandez scale image was documented. After instillation of 1% local lidocaine, a small incision was made in the right lower neck. Using a micropuncture needle, the right internal jugular vein was accessed under realtime ultrasound guidance. The needle entry was documented. Following a series of exchanges, an 11 Austrian vascular sheath was placed. A 0.035 inch guidewire was advanced through the right atrium into the inferior vena cava.An inferior venacavogram was then obtained using the dilator of the 11th Austrian vascular sheath. The study revealed a patent inferior vena cava without any clot burden or congenital abnormality. The IVC filter was in good position. Multiple attempts were made to secure the IVC filter retrieval hook using both a gooseneck and an ensnare. These attempts were unsuccessful. Ultimately, the decision was made to attempt a hangman technique. The 11 Austrian vascular sheath was exchanged for a 16 Austrian vascular sheath. Using a 5 Austrian sauce catheter and exchange length Glidewire, the wire was advanced underneath the filter and was snared and retracted through the 16 Austrian vascular sheath. Once both ends of the exchange and Glidewire were secured, a triaxial system consisting of a 9 Austrian inner sheath, an 11 Austrian middle sheath, and the 16 Austrian outer vascular sheath were serially advanced over the IVC filter to retract the filter into the 16 Austrian vascular sheath. The filter was removed through the vascular sheath. A post-retrieval inferior venacavogram was performed which demonstrated no focal abnormalities. The vascular sheath was then removed and hemostasis was achieved with 2-0 Prolene using a pursestring technique and a flow switch. Sterile dressing was applied. The patient tolerated the procedure well and was transferred to the holding area in stable condition. There were no immediate complications associated with the procedure. Procedure Note Ric Talamantes MD - 04/01/2023 PROCEDURE: IR IVC FILTER REMOVAL DATE/TIME OF EXAM: 04/01/2023 12:42 PM Indication: I82.401: Acute embolism and thrombosis of unspecified deep veins of right lower extremity (CMS/HCC) Operators: 1.Dr. Ric Talamantes, Attending Physician 2.Dr. Anish Raymundo, Attending Physician Modifier 80 - Dr. Anish Raymundo was permit review assistant interventionalist whoassisted me during the procedure. He was is present during the entire procedure ora substantial portion of the procedure as an permit review assistant to me, theoperating physician. Anesthesia: 1.Local anesthesia - 10 mL of 1% lidocaine 2.Intravenous conscious sedation - Versed 3 mg and Fentanyl 150 mcg Procedure: 1.Ultrasound-guided access of the right internal jugular vein. 2.Inferior venacavogram. 3.Retrieval of an infrarenal argon option Elite inferior vena cavafilter under fluoroscopic guidance. 4.Post-retrieval sheath inferior venacavogram. Fluoroscopic time: 32.3 minutes Contrast: 25 mL of Isovue-370 Procedure in detail: The procedure, risks, and possible complications were explained to the patient in detail, and informed consent was obtained. The patient was placed supine on the angiographic table. The right neck was prepped and draped in the usual sterile manner. A stroboroma operator film of the abdomen was obtained, which demonstrated an IVC filter in the mid abdomen. The patient received intravenous Versed and Fentanyl for conscious sedation. A qualified radiology nurse monitored the patient s vital signs throughout the procedure. Limited ultrasound of the right neck demonstrated a patent andcompressible right internal jugular vein. A hernandez scale image was documented. After instillation of 1% local lidocaine, a small incision was made in theright lower neck. Using a micropuncture needle, the right internal jugularvein was accessed under realtime ultrasound guidance. The needle entry was documented. Following a series of exchanges, an 11 Austrian vascular sheath was placed.A 0.035 inch guidewire was advanced through the right atrium into the inferior vena cava.An inferior venacavogram was then obtained using the dilator of the 11th Austrian vascular sheath. The study revealed a patent inferior vena cava without any clot burden or congenital abnormality.The IVC filter was in good position. Multiple attempts were made to secure the IVC filter retrieval hookusing both a gooseneck and an ensnare. These attempts were unsuccessful. Ultimately, the decision was made to attempt a hangman technique. The 11 Austrian vascular sheath was exchanged for a 16 Austrian vascular sheath.Using a 5 Austrian sauce catheter and exchange length Glidewire, the wire was advanced underneath the filter and was snared and retracted through the16 Austrian vascular sheath. Once both ends of the exchange and Glidewirewere secured, a triaxial system consisting of a 9 Austrian inner sheath, an 11 Austrian middle sheath, and the 16 Austrian outer vascular sheath wereserially advanced over the IVC filter to retract the filter into the 16 Austrian vascular sheath. The filter was removed through the vascular sheath. A post-retrieval inferior venacavogram was performed which demonstratedno focal abnormalities. The vascular sheath was then removed and hemostasis was achieved with 2-0 Prolene using a pursestring technique and a flow switch. Sterile dressing was applied. The patient tolerated the procedure well and [facility]. There were no immediate complicationsassociated with the procedure. Impression: Successful removal of a retrievable infrarenal IVC filterunder fluoroscopic guidance, as described above. I, Dr. Ric Talamantes, was present and performed/supervised the entire procedure. Moderate sedation on this patient was ordered by me, administered intravenously in my presence, and monitored [facility] nurse as an independent trained observer who was present throughout the procedure. The following parameters were monitored: oxygen saturation, heart rate, blood pressure, and response to care. Intra-service sedation start time was 1048 and end time was 1225 during which I was present.Total physician intra-service sedation time was 97 minutes. For details on pre moderate sedation and post moderate sedation patient evaluation, please review the evaluation forms in [facility]. For details on monitored clinical parameters during the intra-service sedation time, please review the procedure nurse documentation in [facility]. > Interpreting Provider: Ric Talamantes DO on 04/01/2023 1:12 PM Kg Kate MD IR ORDERABLES * (ABNORMAL) BASIC METABOLIC PANEL (CALCIUM TOTAL) (04/01/2023 9:46 AM GUEST RELATION OFFICER) Only the most recent of10 resultswithin the time period is included. Glucose 119(H) 70 - 105 mg/dL 04/01/2023 11:[address] [facility] Sodium 139 136 - 145 mmol/L 04/01/2023 11:[address] [facility] Potassium 3.8 3.5 - 5.1 mmol/L 04/01/2023 11:[address] [facility] Chloride 107 98 - 107 mmol/L 04/01/2023 11:[address] [facility] CO2 22 22 - 29 mmol/L 04/01/2023 11:[address] [facility] Calcium 8.9 8.4 - 10.4 mg/dL 04/01/2023 11:[address] [facility] Anion Gap 10 6 - 16 mmol/L 04/01/2023 11:[address] [facility] BUN 13 7 - 26 mg/dL 04/01/2023 11:[address] [facility] Creatinine 0.73 0.57 - 1.11 mg/dL 04/01/2023 11:[address] [facility] eGFR by CKD-EPI >90 >=90 mL/min/1.7 3 m2 04/01/2023 11:[address] [facility] Blood BLOOD SPECIMEN / Unknown Venipuncture / Unknown 04/01/2023 9:46 AM GUEST RELATION OFFICER 04/01/2023 10:36 AM GUEST RELATION OFFICER Kg Kate MD LAB - CHEMISTRY ORDE RABLES Performing Organization Address [facility] Co de Phone Number [facility] [address] [place] [phone] * (ABNORMAL) PT-INR (04/01/2023 9:45 AM GUEST RELATION OFFICER) Only the most recent of15 resultswithin the time period is included. PT 16.2(H) 12.1 - 14.8 sec 04/01/2023 11:06 AM GUEST RELATION OFFICER [facility] INR 1.3(H) 0.9 - 1.1 04/01/2023 11:06 AM GUEST RELATION OFFICER [facility] Blood BLOOD SPECIMEN / Unknown Venipuncture / Unknown 04/01/2023 9:45 AM GUEST RELATION OFFICER 04/01/2023 10:33 AM GUEST RELATION OFFICER Narrative [facility] - 04/01/2023 11:06 AM GUEST RELATION OFFICER Conventional Warfarin Anticoagulant Therapy: INR Reference Range: 2.0-3.0 Intensive Warfarin Anticoagulant Therapy: INR Reference Range: 2.5-3.5 Kg Kate MD LAB - COAGULATION OR DERABLES Performing Organization Address [facility] Co de Phone Number [facility] [address] [place], [place] [phone] * Rad Onc Aria Session Summary (03/22/2023 11:22 AM CDT) Course ID C1 Pelvis RAD ONC TREATMENT Course First Treatment Date 02/18/2023 1:19 PM RAD ONC TREATMENT Plan ID Pelvis RAD ONC TREATMENT Plan Fractions Treated to Date 25 RAD ONC TREATMENT Plan Total Fractions Prescribed 25 RAD ONC TREATMENT Plan Total Prescribed Dose 4500 cGy RAD ONC TREATMENT 03/22/2023 11:2 2 AM CDT Provider Unknown RADIATION ONCOLOGY O RDERABLES Performing Organization Address [place]/[facility] Co de Phone Number RAD ONC TREATMENT * Rad Onc Aria Session Summary (03/21/2023 1:31 PM CDT) Course ID C1 Pelvis RAD ONC TREATMENT Course First Treatment Date 02/18/2023 1:19 PM RAD ONC TREATMENT Plan ID Pelvis RAD ONC TREATMENT Plan Fractions Treated to Date 24 RAD ONC TREATMENT Plan Total Fractions Prescribed 25 RAD ONC TREATMENT Plan Total Prescribed Dose 4500 cGy RAD ONC TREATMENT 03/21/2023 1:31 PM CDT Provider Unknown RADIATION ONCOLOGY O RDERABLES RAD ONC TREATMENT * Rad Onc Aria Session Summary (03/20/2023 1:09 PM CDT) Course ID C1 Pelvis RAD ONC TREATMENT Course First Treatment Date 02/18/2023 1:19 PM RAD ONC TREATMENT Plan ID Pelvis RAD ONC TREATMENT Plan Fractions Treated to Date 23 RAD ONC TREATMENT Plan Total Fractions Prescribed 25 RAD ONC TREATMENT Plan Total Prescribed Dose 4500 cGy RAD ONC TREATMENT 03/20/2023 1:09 PM CDT Provider Unknown RADIATION ONCOLOGY O RDERABLES RAD ONC TREATMENT * Rad Onc Aria Session Summary (03/19/2023 1:21 PM CDT) Course ID C1 Pelvis RAD ONC TREATMENT Course First Treatment Date 02/18/2023 1:19 PM RAD ONC TREATMENT Plan ID Pelvis RAD ONC TREATMENT Plan Fractions Treated to Date 22 RAD ONC TREATMENT Plan Total Fractions Prescribed 25 RAD ONC TREATMENT Plan Total Prescribed Dose 4500 cGy RAD ONC TREATMENT 03/19/2023 1:21 PM CDT Provider Unknown RADIATION ONCOLOGY O RDERABLES RAD ONC TREATMENT * Rad Onc Aria Session Summary (03/18/2023 1:25 PM CDT) Course ID C1 Pelvis RAD ONC TREATMENT Course First Treatment Date 02/18/2023 1:19 PM RAD ONC TREATMENT Plan ID Pelvis RAD ONC TREATMENT Plan Fractions Treated to Date 21 RAD ONC TREATMENT Plan Total Fractions Prescribed 25 RAD ONC TREATMENT Plan Total Prescribed Dose 4500 cGy RAD ONC TREATMENT 03/18/2023 1:25 PM CDT Provider Unknown RADIATION ONCOLOGY O RDERABLES RAD ONC TREATMENT * Rad Onc Aria Session Summary (03/15/2023 10:21 AM CDT) Course ID C1 Pelvis RAD ONC TREATMENT Course First Treatment Date 02/18/2023 1:19 PM RAD ONC TREATMENT Plan ID Pelvis RAD ONC TREATMENT Plan Fractions Treated to Date 20 RAD ONC TREATMENT Plan Total Fractions Prescribed 25 RAD ONC TREATMENT Plan Total Prescribed Dose 4500 cGy RAD ONC TREATMENT 03/15/2023 10:2 1 AM CDT Provider Unknown RADIATION ONCOLOGY O RDERABLES Performing Organization Address City/[facility]/ZIP Co de Phone Number RAD ONC TREATMENT * Rad Onc Aria Session Summary (03/14/2023 1:18 PM CDT) Course ID C1 Pelvis RAD ONC TREATMENT Course First Treatment Date 02/18/2023 1:19 PM RAD ONC TREATMENT Plan ID Pelvis RAD ONC TREATMENT Plan Fractions Treated to Date 19 RAD ONC TREATMENT Plan Total Fractions Prescribed 25 RAD ONC TREATMENT Plan Total Prescribed Dose 4500 cGy RAD ONC TREATMENT 03/14/2023 1:18 PM CDT Provider Unknown RADIATION ONCOLOGY O RDERABLES RAD ONC TREATMENT * Rad Onc Aria Session Summary (03/13/2023 1:21 PM CDT) Course ID C1 Pelvis RAD ONC TREATMENT Course First Treatment Date 02/18/2023 1:19 PM RAD ONC TREATMENT Plan ID Pelvis RAD ONC TREATMENT Plan Fractions Treated to Date 18 RAD ONC TREATMENT Plan Total Fractions Prescribed 25 RAD ONC TREATMENT Plan Total Prescribed Dose 4500 cGy RAD ONC TREATMENT 03/13/2023 1:21 PM CDT Provider Unknown RADIATION ONCOLOGY O RDERABLES RAD ONC TREATMENT * Rad Onc Aria Session Summary (03/12/2023 1:24 PM CDT) Course ID C1 Pelvis RAD ONC TREATMENT Course First Treatment Date 02/18/2023 1:19 PM RAD ONC TREATMENT Plan ID Pelvis RAD ONC TREATMENT Plan Fractions Treated to Date 17 RAD ONC TREATMENT Plan Total Fractions Prescribed 25 RAD ONC TREATMENT Plan Total Prescribed Dose 4500 cGy RAD ONC TREATMENT 03/12/2023 1:24 PM CDT Provider Unknown RADIATION ONCOLOGY O RDERABLES RAD ONC TREATMENT * Rad Onc Aria Session Summary (03/11/2023 1:22 PM CDT) Course ID C1 Pelvis RAD ONC TREATMENT Course First Treatment Date 02/18/2023 1:19 PM RAD ONC TREATMENT Plan ID Pelvis RAD ONC TREATMENT Plan Fractions Treated to Date 16 RAD ONC TREATMENT Plan Total Fractions Prescribed 25 RAD ONC TREATMENT Plan Total Prescribed Dose 4500 cGy RAD ONC TREATMENT 03/11/2023 1:22 PM CDT Provider Unknown RADIATION ONCOLOGY O RDERABLES RAD ONC TREATMENT * Rad Onc Aria Session Summary (03/08/2023 11:27 AM CDT) Course ID C1 Pelvis RAD ONC TREATMENT Course First Treatment Date 02/18/2023 1:19 PM RAD ONC TREATMENT Plan ID Pelvis RAD ONC TREATMENT Plan Fractions Treated to Date 15 RAD ONC TREATMENT Plan Total Fractions Prescribed 25 RAD ONC TREATMENT Plan Total Prescribed Dose 4500 cGy RAD ONC TREATMENT 03/08/2023 11:2 7 AM CDT Provider Unknown RADIATION ONCOLOGY O RDERABLES RAD ONC TREATMENT * Rad Onc Aria Session Summary (03/07/2023 1:20 PM CDT) Course ID C1 Pelvis RAD ONC TREATMENT Course First Treatment Date 02/18/2023 1:19 PM RAD ONC TREATMENT Plan ID Pelvis RAD ONC TREATMENT Plan Fractions Treated to Date 14 RAD ONC TREATMENT Plan Total Fractions Prescribed 25 RAD ONC TREATMENT Plan Total Prescribed Dose 4500 cGy RAD ONC TREATMENT 03/07/2023 1:20 PM CDT Provider Unknown RADIATION ONCOLOGY O RDERABLES RAD ONC TREATMENT * Rad Onc Aria Session Summary (03/06/2023 1:24 PM CDT) Course ID C1 Pelvis RAD ONC TREATMENT Course First Treatment Date 02/18/2023 1:19 PM RAD ONC TREATMENT Plan ID Pelvis RAD ONC TREATMENT Plan Fractions Treated to Date 13 RAD ONC TREATMENT Plan Total Fractions Prescribed 25 RAD ONC TREATMENT Plan Total Prescribed Dose 4500 cGy RAD ONC TREATMENT 03/06/2023 1:24 PM CDT Provider Unknown RADIATION ONCOLOGY O RDERABLES RAD ONC TREATMENT * Rad Onc Aria Session Summary (03/05/2023 1:22 PM CDT) Course ID C1 Pelvis RAD ONC TREATMENT Course First Treatment Date 02/18/2023 1:19 PM RAD ONC TREATMENT Plan ID Pelvis RAD ONC TREATMENT Plan Fractions Treated to Date 12 RAD ONC TREATMENT Plan Total Fractions Prescribed 25 RAD ONC TREATMENT Plan Total Prescribed Dose 4500 cGy RAD ONC TREATMENT 03/05/2023 1:22 PM CDT Provider Unknown RADIATION ONCOLOGY O RDERABLES RAD ONC TREATMENT * Rad Onc Aria Session Summary (03/04/2023 1:35 PM CDT) Course ID C1 Pelvis RAD ONC TREATMENT Course First Treatment Date 02/18/2023 1:19 PM RAD ONC TREATMENT Plan ID Pelvis RAD ONC TREATMENT Plan Fractions Treated to Date 11 RAD ONC TREATMENT Plan Total Fractions Prescribed 25 RAD ONC TREATMENT Plan Total Prescribed Dose 4500 cGy RAD ONC TREATMENT 03/04/2023 1:35 PM CDT Provider Unknown RADIATION ONCOLOGY O RDERABLES RAD ONC TREATMENT * Rad Onc Aria Session Summary (03/01/2023 11:37 AM CDT) Course ID C1 Pelvis RAD ONC TREATMENT Course First Treatment Date 02/18/2023 1:19 PM RAD ONC TREATMENT Plan ID Pelvis RAD ONC TREATMENT Plan Fractions Treated to Date 10 RAD ONC TREATMENT Plan Total Fractions Prescribed 25 RAD ONC TREATMENT Plan Total Prescribed Dose 4500 cGy RAD ONC TREATMENT 03/01/2023 11:3 7 AM CDT Provider Unknown RADIATION ONCOLOGY O RDERABLES Performing Organization Address [facility] Co de Phone Number RAD ONC TREATMENT * Rad Onc Aria Session Summary (02/28/2023 1:14 PM CDT) Course ID C1 Pelvis RAD ONC TREATMENT Course First Treatment Date 02/18/2023 1:19 PM RAD ONC TREATMENT Plan ID Pelvis RAD ONC TREATMENT Plan Fractions Treated to Date 9 RAD ONC TREATMENT Plan Total Fractions Prescribed 25 RAD ONC TREATMENT Plan Total Prescribed Dose 4500 cGy RAD ONC TREATMENT 02/28/2023 1:14 PM CDT Provider Unknown RADIATION ONCOLOGY O RDERABLES Performing Organization Address [place]/[facility] Co de Phone Number RAD ONC TREATMENT * Rad Onc Aria Session Summary (02/27/2023 1:24 PM CDT) Course ID C1 Pelvis RAD ONC TREATMENT Course First Treatment Date 02/18/2023 1:19 PM RAD ONC TREATMENT Plan ID Pelvis RAD ONC TREATMENT Plan Fractions Treated to Date 8 RAD ONC TREATMENT Plan Total Fractions Prescribed 25 RAD ONC TREATMENT Plan Total Prescribed Dose 4500 cGy RAD ONC TREATMENT 02/27/2023 1:24 PM CDT Provider Unknown RADIATION ONCOLOGY O RDERABLES RAD ONC TREATMENT * Rad Onc Aria Session Summary (02/26/2023 1:25 PM CDT) Course ID C1 Pelvis RAD ONC TREATMENT Course First Treatment Date 02/18/2023 1:19 PM RAD ONC TREATMENT Plan ID Pelvis RAD ONC TREATMENT Plan Fractions Treated to Date 7 RAD ONC TREATMENT Plan Total Fractions Prescribed 25 RAD ONC TREATMENT Plan Total Prescribed Dose 4500 cGy RAD ONC TREATMENT 02/26/2023 1:25 PM CDT Provider Unknown RADIATION ONCOLOGY O RDERABLES Performing Organization Address [place]/[facility] Co de Phone Number RAD ONC TREATMENT * Rad Onc Aria Session Summary (02/25/2023 1:26 PM CDT) Course ID C1 Pelvis RAD ONC TREATMENT Course First Treatment Date 02/18/2023 1:19 PM RAD ONC TREATMENT Plan ID Pelvis RAD ONC TREATMENT Plan Fractions Treated to Date 6 RAD ONC TREATMENT Plan Total Fractions Prescribed 25 RAD ONC TREATMENT Plan Total Prescribed Dose 4500 cGy RAD ONC TREATMENT 02/25/2023 1:26 PM CDT Provider Unknown RADIATION ONCOLOGY O RDERABLES Performing Organization Address [place]/[facility] Co de Phone Number RAD ONC TREATMENT * Rad Onc Aria Session Summary (02/22/2023 11:49 AM CDT) Course ID C1 Pelvis RAD ONC TREATMENT Course First Treatment Date 02/18/2023 1:19 PM RAD ONC TREATMENT Plan ID Pelvis RAD ONC TREATMENT Plan Fractions Treated to Date 5 RAD ONC TREATMENT Plan Total Fractions Prescribed 25 RAD ONC TREATMENT Plan Total Prescribed Dose 4500 cGy RAD ONC TREATMENT 02/22/2023 11:4 9 AM CDT Provider Unknown RADIATION ONCOLOGY O RDERABLES RAD ONC TREATMENT * Rad Onc Aria Session Summary (02/21/2023 1:16 PM CDT) Course ID C1 Pelvis RAD ONC TREATMENT Course First Treatment Date 02/18/2023 1:19 PM RAD ONC TREATMENT Plan ID Pelvis RAD ONC TREATMENT Plan Fractions Treated to Date 4 RAD ONC TREATMENT Plan Total Fractions Prescribed 25 RAD ONC TREATMENT Plan Total Prescribed Dose 4500 cGy RAD ONC TREATMENT 02/21/2023 1:16 PM CDT Provider Unknown RADIATION ONCOLOGY O RDERABLES RAD ONC TREATMENT * Rad Onc Aria Session Summary (02/20/2023 1:28 PM CDT) Course ID C1 Pelvis RAD ONC TREATMENT Course First Treatment Date 02/18/2023 1:19 PM RAD ONC TREATMENT Plan ID Pelvis RAD ONC TREATMENT Plan Fractions Treated to Date 3 RAD ONC TREATMENT Plan Total Fractions Prescribed 25 RAD ONC TREATMENT Plan Total Prescribed Dose 4500 cGy RAD ONC TREATMENT 02/20/2023 1:28 PM CDT Provider Unknown RADIATION ONCOLOGY O RDERABLES RAD ONC TREATMENT * Rad Onc Aria Session Summary (02/19/2023 1:20 PM CDT) Course ID C1 Pelvis RAD ONC TREATMENT Course First Treatment Date 02/18/2023 1:19 PM RAD ONC TREATMENT Plan ID Pelvis RAD ONC TREATMENT Plan Fractions Treated to Date 2 RAD ONC TREATMENT Plan Total Fractions Prescribed 25 RAD ONC TREATMENT Plan Total Prescribed Dose 4500 cGy RAD ONC TREATMENT 02/19/2023 1:20 PM CDT Provider Unknown RADIATION ONCOLOGY O RDERABLES RAD ONC TREATMENT * Rad Onc Aria Session Summary (02/18/2023 1:28 PM CDT) Course ID C1 Pelvis RAD ONC TREATMENT Course First Treatment Date 02/18/2023 1:19 PM RAD ONC TREATMENT Plan ID Pelvis RAD ONC TREATMENT Plan Fractions Treated to Date 1 RAD ONC TREATMENT Plan Total Fractions Prescribed 25 RAD ONC TREATMENT Plan Total Prescribed Dose 4500 cGy RAD ONC TREATMENT 02/18/2023 1:28 PM CDT Provider Unknown RADIATION ONCOLOGY O RDERABLES RAD ONC TREATMENT * IR JOAN CATH INSERT (12/13/2022 11:48 AM CDT) Anatomical Region Laterality Modality Chest X-Ray Angiograph y 12/13/2022 5:51 PM CDT Impressions 12/13/2022 6:01 PM CDT IMPRESSION: SUCCESSFUL PLACEMENT OF A VENOUS ACCESS PORT, DESCRIBED. PLEASE NOTE, THIS PORT IS MR COMPATIBLE, AND MAY BE USED FOR POWER CONTRAST INJECTIONS. > Interpreting Provider: Jaspreet Hampton MD on 12/13/2022 6:01 PM Narrative 12/13/2022 6:01 PM CDT PROCEDURE: IR JOAN CATH INSERT, DATE/TIME OF EXAM: 12/13/2022 1:39 PM, LOCATION [facility] INDICATION: C54.1: Malignant neoplasm of endometrium (CMS/HCC) ADDITIONAL CLINICAL INFORMATION: Ordering Provider Reason For Exam: Technologist Note: Additional: COMPARISON: None. ULTRASOUND AND FLUOROSCOPIC GUIDED VENOUS ACCESS PORT PLACEMENT AND SUPERVISION OF CONSCIOUS SEDATION INDICATION: Endometrial carcinoma. She is starting her chemotherapy, and needs long-term intravenous access TECHNIQUE: The procedure was performed by Dr. Hampton. The rationale of the procedure, risks, benefits, and alternatives were discussed with Aditi and informed consent was obtained. In the Interventional Suite, universal protocol was performed prior to the beginning of the procedure, confirming the patient identity and planned procedure. Maximum sterile barriers including cap, mask, hand hygiene, sterile gloves, sterile gown, large sterile drape, and 2% chlorhexidine for cutaneous antisepsis were used. The skin overlying the right neck and chest were sterilely prepped and draped in the usual manner. A time out was performed. A skin site along the lateral aspect of the internal jugular vein was infiltrated with 1% lidocaine. Under direct sonographic guidance, using sterile ultrasound gel and a sterile ultrasound probe cover, the right internal jugular vein was punctured with the needle seen entering the anterior lateral wall. An image of the needle entering the patent vessel was recorded, and saved in the PACS. A guidewire was directed centrally, under fluoroscopic guidance and the distance between the access site and right atrium was measured. After infiltrating the skin in the subclavicular region with 1% lidocaine with epinephrine, a short transverse incision was made and the pocket for the eighth Fr, CT and MR compatible power port reservoir was formed by blunt dissection. The catheter was tunneled to the IJ access site, cut to the appropriate length, 19 cm, and inserted through a peel away sheath. The catheter was flushed with 100 U/mL heparin and the access needle was removed. The deep tissues and subcutaneous tissues were approximated using 3-0 Vicryl, and the incision closed using Dermabond. The incision in the lower neck was closed in a similar fashion. She was given conscious sedation by the trained radiology nurse and observer, under my direct face to face supervision. She received 1 mg of midazolam and 50 mcg of fentanyl. The patient was monitored through out the procedure, and during the 22 minutes of sedation, intra-service. Contrast: None FINDINGS: Ultrasound image shows a patent internal jugular vein. Final fluoroscopic image demonstrates the catheter with its tip at the caudal superior vena cava. No complications are seen. Procedure Note Jaspreet Hampton MD - 12/13/2022 PROCEDURE: IR JOAN CATH INSERT, DATE/TIME OF EXAM: 12/13/2022 1:39 PM, LOCATION [facility] INDICATION: C54.1: Malignant neoplasm of endometrium (CMS/HCC) ADDITIONAL CLINICAL INFORMATION: Ordering Provider Reason For Exam: Technologist Note: Additional: COMPARISON: None. ULTRASOUND AND FLUOROSCOPIC GUIDED VENOUS ACCESS PORT PLACEMENT AND SUPERVISION OF CONSCIOUS SEDATION INDICATION: Endometrial carcinoma. She is starting her chemotherapy, and needs long-term intravenous access TECHNIQUE: The procedure was performed by Dr. Hampton. The rationaleof the procedure, risks, benefits, and alternatives were discussed with Ms. Pennington and informed consent was obtained. In the InterventionalSuite, universal protocol was performed prior to the beginning of theprocedure, confirming the patient identity and planned procedure. Maximum sterile barriers including cap, mask, hand hygiene, sterile gloves, sterilegown, large sterile drape, and 2% chlorhexidine for cutaneous antisepsis were used. The skin overlying the right neck and chest were sterilely prepped and draped in the usual manner. A time out was performed. A skin sitealong the lateral aspect of the internal jugular vein was infiltrated with 1% lidocaine. Under direct sonographic guidance, using sterile ultrasoundgel and a sterile ultrasound probe cover, the right internal jugular veinwas punctured with the needle seen entering the anterior lateral wall. An image of the needle entering the patent vessel was recorded, and savedin the PACS. A guidewire was directed centrally, under fluoroscopicguidance and the distance between the access site and right atrium was measured. After infiltrating the skin in the subclavicular region with 1%lidocaine with epinephrine, a short transverse incision was made and the pocketfor the eighth Fr, CT and MR compatible power port reservoir was formed by blunt dissection. The catheter was tunneled to the IJ access site, cut to the appropriate length, 19 cm, and inserted through a peel away sheath. The catheterwas flushed with 100 U/mL heparin and the access needle was removed. Thedeep tissues and subcutaneous tissues were approximated using 3-0 Vicryl, and the incision closed using Dermabond. The incision in the lower neck was closed in a similar fashion. She was given conscious sedation by the trained radiology nurse and observer, under my direct face to face supervision. She received 1 mg of midazolam and 50 mcg of fentanyl. The patient was monitored through outthe procedure, and during the 22 minutes of sedation, intra-service. Contrast: None FINDINGS: Ultrasound image shows a patent internal jugular vein. Final fluoroscopic image demonstrates the catheter with its tip at the caudal superior vena cava. No complications are seen. IMPRESSION: SUCCESSFUL PLACEMENT OF A VENOUS ACCESS PORT, DESCRIBED. PLEASE NOTE, THIS PORT IS MR COMPATIBLE, AND MAY BE USED FOR POWERCONTRAST INJECTIONS. > Interpreting Provider: Jaspreet Hampton MD on 12/13/2022 6:01 PM Franko Goodrich MD IR ORDERABLES * CARDIAC RHYTHM STRIP ORDER (10/22/2022 8:00 PM CDT) Narrative 10/22/2022 8:00 PM CDT Ordered by an unspecified provider. Scanned Document CARDIAC SERVICES ORD ERABLES * (ABNORMAL) RENAL FUNCTION PANEL (10/19/2022 6:46 AM CDT) Only the most recent of7 resultswithin the time period is included. Glucose 99 70 - 105 mg/dL 10/19/2022 7:57 AM CDT [facility] Sodium 139 136 - 145 mmol/L 10/19/2022 7:57 AM CDT [facility] Potassium 4.1 3.5 - 5.1 mmol/L 10/19/2022 7:57 AM CDT [facility] Chloride 104 98 - 107 mmol/L 10/19/2022 7:57 AM CDT [facility] CO2 26 23 - 31 mmol/L 10/19/2022 7:57 AM CDT [facility] Calcium 8.9 8.4 - 10.4 mg/dL 10/19/2022 7:57 AM CDT [facility] Anion Gap 9 8 - 18 mmol/L 10/19/2022 7:57 AM CDT [facility] BUN 12 9.8 - 20.1 mg/dL 10/19/2022 7:57 AM CDT [facility] Creatinine 0.64 0.57 - 1.11 mg/dL 10/19/2022 7:57 AM CDT [facility] Albumin 3.2(L) 3.5 - 5.2 gm/dL 10/19/2022 7:57 AM CDT [facility] Phosphorus 3.8 2.3 - 4.7 mg/dL 10/19/2022 7:57 AM CDT [facility] eGFR by CKD-EPI >90 >=90 mL/min/1.7 3 m2 10/19/2022 7:57 AM CDT [facility] Blood BLOOD SPECIMEN / Unknown Lab Venipuncture / Unknown 10/19/2022 6:46 AM CDT 10/19/2022 7:33 AM CDT Ramona Valencia MD LAB - CHEMISTRY NICOLE BENITEZ [facility] Organization Address City/State/ZIP Co de Phone Number [facility] [address] [place] [address] * CYTOLOGY NON-FURNACE COMBINATION ANALYST PANEL (STL) (10/16/2022 10:16 AM CDT) Case Report Cytology Non Pantry Worker Report Case: [id number] Authorizing Provider: Franko Goodrich MD Collected: 10/16/2022 10:16 AM Ordering Location: [facility] Received: 10/16/2022 12:04 PM Pathologist: Tanmay Harrington MD Specimen: Pelvic Washings 10/17/2022 4:[address] [facility] Final Diagnosis Pelvic washings: 1. Satisfactory for evaluation 2. Rare atypical cells of undetermined significance present 10/17/2022 4:[address] [facility] Clinical History Grade 2 adenocarcinoma of the endometrium 10/17/2022 4:[address] [facility] Gross Description 65 mL of bright red fluid are received from which 1 thin prep and 1 cell block are prepared for cytologic evaluation. 10/17/2022 4:[address] [facility] Microscopic Description In a background of blood, mesothelial cells, and inflammatory cells there are scant irregular groups of cells that have mild cytologic and architectural atypia. Immunostains (controls appropriate) target a group of cells in a deeper level positive for PAX8 but the same cells are not evident in the calretinin stain.. Background mesothelial cells are positive for calretinin. The specimen lacks conclusive evidence for the presence of atypical cells of Mullerian origin. Clinical correlation with the surgical specimen obtained during the same procedure is suggested (see [id number]). 10/17/2022 4:[address] [facility] Pathologist Location at [facility] 10/17/2022 4:[address] [facility] Disclaimer All histochemical and/or immunohistochemical results are interpreted with controls that demonstrate appropriate staining reactions before reporting results. Note on use of immunocytochemistry reagents: This test was developed and its performance characteristic determined by [facility], Department of Laboratory Medicine. It has not been cleared or approved by the U.S. Food and Drug Administration (FDA). The FDA has determined that such clearance or approval is not necessary. The test is used for clinical purpose. It should not be regarded as investigational or for research. This laboratory is certified to perform high complexity testing. The performance characteristics of the IHC/COLE assays have been validated on formalin-fixed paraffin embedded tissues only. The assays have not been validated on decalcified tissues. Results should be interpreted with caution. 10/17/2022 4:43 PM CDT [facility] Embedded Images 10/17/2022 4:43 PM CDT [facility] Pathology/Cytolo gy SPECIMEN OBTAINED BY PERITONEAL LAVAGE / Unknown 10/16/2022 10:16 AM CDT 10/16/2022 12:04 PM CDT Comment:Pre-op diagnosis: Diagnosis unknown [R69] Franko Goodrich MD LAB - PATHOLOGY/CYTO LOGY ORDERABLES [facility] [address] [place] [address] * ETT LINE PERFORMABLE (10/16/2022 9:23 AM CDT) Narrative Catina Estevez APRN-CRNA - 10/16/2022 9:23 AM CDT Catina Estevez APRN-CRNA 10/16/2022 9:24 AM Endotracheal Tube Placement: Patient Location: OR. Intubation Event Date/Time: 10/16/2022 8:37 AM Procedure: intubation (45143). Procedure Section: Sedation: under general anesthesia. Indications for Airway Management: anesthesia Procedure pretreatments used? No Induction: standard IV Patient Position: sniffing Mask Ventilation: easy. Blade Type: Anne Blade Size: 2 Laryngoscopy View: grade 1 (full cords) Intubation Adjuncts: cricoid pressure and stylet Tube: endotracheal tube Placement: oral Tube type: cuff - inflated Tube Size (MM): 7 Depth of Insertion (CM): 22 Measured From: lips Cuff volume (mL): 4 Cuff Inflated With: air Number of Attempts: 1. Placement Verified By: direct visualization, bilateral breath sounds, chest auscultation and CO2 monitor Tube secured with: adhesive tape. Dentition unchanged? Yes Difficult Airway? No. Procedure Start Time: 10/16/2022 8:37 AM. Staff Section Anesthesia Provider: Catina Estevez APRN-CRNA, Performed the procedure Additional Comments: Smooth IV induction. DVOI. Positive ETCO2. Positive BBS. Tube secured. Oral cavity unchanged. . Amandeep Geller MD GENERAL ANESTHESIA ORDERABLES * PATHOLOGY TISSUE EXAM (STL) (10/16/2022 9:09 AM CDT) Only the most recent of3 resultswithin the time period is included. Case Report Surgical Pathology Report Case: [id number] Authorizing Provider: Franko Goodrich MD Collected: 10/16/2022 09:09 AM Ordering Location: [facility] Received: 10/16/2022 09:16 AM Pathologist: Radha Cuadra MD Specimens: A) - Tissue, ILEOCECAL EPIPLOICA B) - Uterus w Cervix, Uterus, Cervix, Bilateral Tubes and Ovaries C) - Tissue, RECTOSIGMOID COLON EPIPLOICA D) - Pelvic Lymph Nodes, RIGHT PELVIC LYMPH NODE E) - Lymph Node, RIGHT PERIAORTIC LYMPH NODE F) - Tissue, RIGHT PELVIC SIDEWALL 10/23/2022 4:47 PM T [facility] Final Diagnosis Peritoneum, ileocecal epiploica, biopsy (A, including FSA1) - No evidence of malignancy Uterus, hysterectomy (B) - Endometrioid adenocarcinoma, FIGO grade 2, with microcystic/elongated /fragmented pattern, invasive to a depth of 22 mm in a myometrial thickness of 29 mm, with lymphvascular space invasion, not involving lower uterine segment or cervix - Serosal adhesions Ovaries and Fallopian tubes, bilateral, salpingo-oophorectomy (B) - Adhesions Peritoneum, rectosigmoid colon epiploica, biopsy (C, including FSC1) - No evidence of malignancy Lymph nodes, right pelvic, dissection (D) - Metastatic endometrioid adenocarcinoma in two of fourteen lymph nodes (2/14, plus isolated tumor cells in multiple lymph nodes) Lymph node, right periaortic, excision (E) - Micrometastatic endometrioid adenocarcinoma in one of one lymph node (1mi/1) Peritoneum, right pelvic sidewall, biopsy (F) - Adhesions and reactive mesothelium - No evidence of malignancy 10/23/2022 4:47 PM T [facility] Clinical History The patient is a 57-year-old woman with endometrial cancer. Operative procedure: hysterectomy, bilateral salpingo-oophorectomy , staging. 10/23/2022 4:47 PM CDT [facility] Frozen Section The frozen section diagnosis is as rendered below. FSA1: Ileocecal epiploica, excision - Chronic inflammation - No evidence of malignancy The specimen was received at 0915 on 10/16/22 and was reported to Dr. Goodrich at [address] Cuadra. FSC1: Rectosigmoid colon epiploica, excision - Inflammatory/reactive changes; no evidence of malignancy The specimen was received at 1002 on 10/16/22 and was reported to Dr. Goodrich at 10:[address] Cuadra. 10/23/2022 4:47 PM T [facility] Gross Description The specimen A to F are received in six separate containers labeled with the patient's name and date of . Received fresh, specimen A labeled as tissue (ileocecal epiploica) is a 1.5 x 1.3 x 0.3 cm pink-yellow fatty tissue. Entirely submitted for frozen and resubmitted for permanent in cassette A1. Received in formalin, specimen B labeled as uterus with cervix (uterus, cervix, bilateral +) consists of a 373.22 g, 11.0 x 9.0 x 7.0 cm uterus with cervix with attached bilateral tubes and ovaries. The ectocervix is pale-buck, 1.7 cm in diameter with 0.3 cm external os. The endocervical canal measures 3.5 cm in length with pale-buck herringbone mucosa. Sectioning shows pale-buck cut surfaces with multiple cysts 0.3 to 0.6 cm in greatest dimension. The uterine serosa is pink-buck and smooth. Sectioning shows the endometrial cavity is involved by mass measuring 7.0 x 6.5 x 6.5 cm and involves greater than 50 percentage of myometrial wall thickness with white-buck soft tissue intermixed with pink-buck trabecular cut surface. The greatest depth of invasion is 3.5 cm with the wall thickness of 4.0 cm. The endometrial mucosa is not grossly identified. The right fallopian tube measures 5.0 cm in length x 0.6 cm in diameter and is sectioned to show an unremarkable cut surface. The right ovary measures 2.0 cm x 1.4 x 0.8 cm and is sectioned to show a 0.3 cm cyst. The left fallopian tube measures 2.5 cm in length x 0.3 cm in diameter and is sectioned to show an unremarkable surface. The left ovary measures 2.2 x 1.6 x 0.8 cm left ovary is sectioned to show multiple cysts measuring 0.2 to 0.5 cm in greatest dimension. Full Time sections are submitted as follows: B1-anterior cervix, bisected B2-posterior cervix, B3-anterior PAULETTE, B4-posterior PAULETTE, B5, B6-anterior uterine wall, bisected, B7, B8 anterior uterine wall, bisected, B9-anterior uterine wall with mass, B10, J00-uzteavzed uterine wall with mass, bisected, B12, B13 posterior uterine wall with mass, bisected, B14, S60-cieoypmvh uterine wall with mass, W22-chtad fallopian tube, B-17-right ovary, adnexa, G14-xyfb ovary, R30-cara fallopian tube with adnexa. /AJ Received fresh, specimen C labeled as rectal sigmoid colo ep+ are multiple buck-yellow soft tissues, 5.5 x 4.0 x 1.0 cm in aggregate. Sectioning shows pink-yellow mildly hemorrhagic, fatty cut surfaces. Entirely submitted as follows: C1-frozen section control, G2-Q8-zdjvkiewu cut surfaces. /LJ Received in formalin, specimen D labeled as pelvic lymph nodes (right pelvic lymph +) consists of multiple fragments of fibrofatty tissue measuring 6.5 x 5.0 x 1.0 cm and is dissected to show multiple lymph nodes measuring 0.2 to 1.6 cm. The lymph nodes are submitted as follows: D1-4 lymph nodes, D2-3 lymph nodes, D3-2 lymph nodes, D4-2 lymph nodes, D5-2 lymph nodes, bisected 1 inked green, D6-1 lymph node, bisected D7, D8-1 lymph node section Received in formalin, specimen E labeled as lymph node (right periaortic lymph +) consists of 3.0 x 1.5 x 1.0 cm of fibrofatty tissue which is dissected to show 1 lymph node measuring 3.0 x 0.7 x 0.5 cm. Sectioning of the lymph shows pink-bcuk cut surfaces with a 0.2 cm white-buck lesion at the cut surface. The lymph node is entirely submitted in cassettes E1, E2. (Section with lesion in cassette E2, inked blue). /AJ Received in formalin, specimen F labeled as tissue (right pelvic sidewall) consists of a 5.5 x 1.4 x 0.3 cm fibrofatty tissue is sectioned to show unremarkable cut surface. Full Time section is submitted in F1. After initial microscopic examination, the remaining specimen is submitted in F2-F4. 10/23/2022 4:[address] [facility] Microscopic Description Microscopic examination substantiates the above diagnosis. Permanent sections confirm the frozen section diagnosis. Histologic sections of the right Fallopian tube (part B) show adhesions and abundant epithelioid cells. Immunostains (controls adequate) highlight numerous reactive mesothelial cells, which are strongly reactive for calretinin and weakly reactive for PAX8. A detached fragment of epithelium is present on the immunostained sections adjacent to adhesions; this focus is not present on deeper levels and is interpreted as a contaminant rather than tubal serosal involvement. Histologic sections of the right pelvic lymph nodes (part D) show metastatic adenocarcinoma with dilated glands. Immunostains (controls adequate) performed to further evaluate the tumor cells show they are reactive for PAX8 and ER, with wild-type reactivity for p53. Napsin-A and vimentin are negative in the tumor cells. The morphologic and immunophenotypic features support the diagnosis. Histologic sections of the right pelvic sidewall biopsy (part F) show adhesions and entrapped epithelioid cells. Immunostains (controls adequate) performed to further evaluate the epithelioid cells show weak reactivity for PAX8 and strong reactivity for calretinin. The morphologic and immunophenotypic features support the diagnosis. Mismatch repair (MMR) enzyme immunohistochemical staining results: MLH1: Intact PMS2: Intact MSH2: Intact MSH6: Intact Panel interpretation: Proficient (pMMR) Immunohistochemical stains (IHC; single antibody stain procedures; Dante MMR RdDx Panel) have been performed on part D for the DNA mismatch repair (MMR) enzymes MLH1, MSH2, MSH6, and PMS2. These show retained nuclear expression in the tumor cells equivalent to that seen in adjacent normal tissue, a staining pattern that is usually not associated with a defect in mismatch repair function. Normal expression of all four proteins suggests this particular cancer is unlikely to be due to a hereditary germline mutation in the genes known to be associated with Lira Syndrome. Clinical correlation is required. IHC is a reliable measure of DNA mismatch repair status but is neither completely sensitive nor specific and has limitations. 10/23/2022 4:[address] [facility] Pathologist Location at [facility] 10/23/2022 4:[address] [facility] Disclaimer All histochemical and/or immunohistochemical results are interpreted with controls that demonstrate appropriate staining reactions before reporting results. Note on use of immunocytochemistry reagents: This test was developed and its performance characteristic determined by [facility], Department of Laboratory Medicine. It has not been cleared or approved by the U.S. Food and Drug Administration (FDA). The FDA has determined that such clearance or approval is not necessary. The test is used for clinical purpose. It should not be regarded as investigational or for research. This laboratory is certified to perform high complexity testing. The performance characteristics of the IHC/COLE assays have been validated on formalin-fixed paraffin embedded tissues only. The assays have not been validated on decalcified tissues. Results should be interpreted with caution. 10/23/2022 4:47 PM CDT [facility] Synoptic Report ENDOMETRIUM ENDOMETRIUM: HYSTERECTOMY - All Specimens 8th Edition - Protocol posted: 11/15/2021 SPECIMEN Procedure: Total hysterectomy and bilateral salpingo-oophorectomy Procedure: Peritoneal biopsy(ies) TUMOR Tumor Site: Endometrium Histologic Type: Endometrioid carcinoma, NOS Histologic Grade: FIGO grade 2 Myometrial Invasion: Present Depth of Myometrial Invasion: 22 mm Myometrial Thickness: 29 mm Percentage of Myometrial Invasion: 76 % Uterine Serosa Involvement: Not identified Lower Uterine Segment Involvement: Not identified Cervical Stromal Involvement: Not identified Other Tissue / Organ Involvement: Not identified Peritoneal / Ascitic Fluid: Atypical: See cytology report Lymphovascular Invasion (LVI): Present REGIONAL LYMPH NODES Regional Lymph Node Status: : Tumor present in pelvic lymph node(s) Total Number of Pelvic Nodes with Macrometastasis: 2 Total Number of Pelvic Nodes with Micrometastasis: 0 Laterality of Pelvic Node(s) with Tumor: Right non-sentinel : Tumor present in para-aortic lymph node(s) Total Number of Para-aortic Nodes with Macrometastasis: 0 Total Number of Para-aortic Nodes with Micrometastasis: 1 Laterality of Para-aortic Node(s) with Tumor: Right non-sentinel Lymph Nodes Examined: Total Number of Pelvic Nodes Examined: 14 Total Number of Para-aortic Nodes Examined: 1 PATHOLOGIC STAGE CLASSIFICATION (pTNM, AJCC 8th Edition) Reporting of pT, pN, and (when applicable) pM categories is based on information available to the pathologist at the time the report is issued. As per the AJCC (Chapter 1, 8th Ed.) it is the managing physician's responsibility to establish the final pathologic stage based upon all pertinent information, including but potentially not limited to this pathology report. pT Category: pT1b pN Category: pN2mi FIGO STAGE FIGO Stage: IIIC2 10/23/2022 4:47 PM CDT [facility] Embedded Images 10/23/2022 4:47 PM CDT [facility] Pathology/Cytology TISSUE SPECIMEN / Unknown 10/16/2022 9:09 AM CDT 10/16/2022 9:16 AM CDT Comment:Pre-op diagnosis: Diagnosis unknown [R69] Miscellaneous samples (specimen) SPECIMEN FROM UTERINE CERVIX OBTAINED BY HYSTERECTOMY / Unknown 10/16/2022 9:47 AM CDT 10/16/2022 12:00 PM CDT Comment:Pre-op diagnosis: Diagnosis unknown [R69] Miscellaneous samples (specimen) TISSUE SPECIMEN / Unknown 10/16/2022 9:55 AM CDT 10/16/2022 10:03 AM CDT Comment:Pre-op diagnosis: Diagnosis unknown [R69] Miscellaneous samples (specimen) PELVIC LYMPH NODES SAMPLING / Unknown 10/16/2022 10:04 AM CDT 10/16/2022 12:00 PM CDT Comment:Pre-op diagnosis: Diagnosis unknown [R69] Miscellaneous samples (specimen) ENTIRE LYMPH NODE / Unknown 10/16/2022 10:17 AM CDT 10/16/2022 12:00 PM CDT Comment:Pre-op diagnosis: Diagnosis unknown [R69] Miscellaneous samples (specimen) TISSUE SPECIMEN / Unknown 10/16/2022 10:24 AM CDT 10/16/2022 12:00 PM CDT Comment:Pre-op diagnosis: Diagnosis unknown [R69] Franko Goodrich MD LAB - PATHOLOGY/CYTO LOGY ORDERABLES [facility] [address] [place] [address] * Peripheral Nerve Block (10/16/2022 8:04 AM CDT) Narrative Amandeep Geller MD - 10/16/2022 8:04 AM CDT Amandeep Geller MD 10/16/2022 8:19 AM Peripheral Nerve Block Procedure: Peripheral Nerve Block Patient Location: Pre-op Preprocedure Section: Indications: at surgeon's request and postop pain management. Pre-anesthetic Checklist: Patient identified, IV Checked, Site examined and clear, Risks and benefits discussed, Surgical consent verified, Monitors and equipment, Time-out performed, Informed consent obtained, Pre-op evaluation done, Questions answered/anesthesia questions answered, Allergies reviewed and Removal hand/wrist jewelry Monitors: Pulse Ox. Patient Condition: sedated, meaningful contact maintained throughout procedure Patient Position: supine Patient Sedated? Yes Sedation Type: moderate Sedation Agents: fentaNYL (PF) (SUBLIMAZE) injection, 100 mcg midazolam (VERSED) injection, 2 mg Procedure Section Laterality: bilateral Block Performed: rectus sheath Prep: Chloraprep Skin localized with: lidocaine (XYLOCAINE MPF) 1 % injection, 2 mL Needle Type: nerve stimulator Needle Gauge: 22 Needle Length: 80 mm Catheter? No Ultrasound Guided? Yes Technique: in plane Visualization: Preliminary scan performed, Important anatomical structures identified, Needle tip visualized throughout the procedure, Target identified, No intraneural or intravascular puncture occurred, Hydolocation utilized, Ultrasound image in chart and Local visualized surrounding nerve on ultrasound Injection was made incrementally with constant monitoring and aspirations every 5 mL's Injection Assessment: Slow fractionated injection Block Agents or Additives used? Yes Block agents used: bupivacaine 0.75% - EPINEPHrine 1:200,000 (PF) injection, 20 mL bupivacaine liposome (EXPAREL) 1.3 % injection, 20 mL sodium chloride 0.9 % SOLN, 20 mL Procedure Tolerance: performed while the patient was sedated and tolerated well Procedure Start Time: 10/16/2022 8:04 AM. Procedure End Time: 10/16/2022 8:12 AM. Procedure Total Time: 8 minutes. Staff Section Anesthesia Provider: Amandeep Geller MD, Performed the procedure Amandeep Geller MD GENERAL ANESTHESIA ORDERABLES * MRI BRAIN WO CONTRAST (10/15/2022 8:35 AM CDT) Anatomical Region Laterality Modality Head Magnetic Resonan ce 10/15/2022 9:11 AM CDT Impressions 10/15/2022 11:22 AM CDT IMPRESSION: 1. No intracranial metastatic lesions or acute intracranial process is identified. 2. Age-appropriate involutional changes. > Interpreting Provider: Ye Kidd MD on 10/15/2022 11:22 AM Narrative 10/15/2022 11:22 AM CDT PROCEDURE: MRI BRAIN WO CONTRAST DATE/TIME OF EXAM: 10/15/2022 8:35 AM CLINICAL INFORMATION: None relevant/not provided if blank. Indication: C54.1: Malignant neoplasm of endometrium (CMS/HCC) EXAMINATION: MRI OF THE BRAIN WITHOUT CONTRAST HISTORY: Mental status change, unknown causes. History of endometrial carcinoma. Brain metastasis is suspected. COMPARISON: None. TECHNIQUE: MRI of the brain was performed without contrast according to standard protocol. FINDINGS: No evidence of acute or chronic hemorrhage is identified. No evidence of an acute cerebral or cerebellar infarction is identified. No mass, edema, mass effect or midline shift is seen. The hernandez-white interface is normal. The thin halo of periventricular T2 hyperintense white matter changes is age-appropriate. There are no other white matter changes. No old infarction or encephalomalacia is identified. The brain volume is normal for age. The ventricles are of normal size, shape, and morphology. The corpus callosum and sella appear normal. The pituitary gland is not enlarged. The posterior fossa, brainstem, and craniocervical junction appear normal. The orbits and the orbital contents are normal and symmetric. The paranasal sinuses and the mastoid air cells are clear except for mild mucosal thickening of some of bilateral ethmoid air cells and small bilateral partial mastoid effusion. Normal flow voids are demonstrated in the carotid arteries, intradural vertebral arteries and basilar artery. The calvarium is normal. The visualized cervical spine appears unremarkable as visualized. Procedure Note Ye Kidd MD - 10/15/2022 PROCEDURE: MRI BRAIN WO CONTRAST DATE/TIME OF EXAM: 10/15/2022 8:35 AM CLINICAL INFORMATION: None relevant/not provided if blank. Indication: C54.1: Malignant neoplasm of endometrium (CMS/HCC) EXAMINATION: MRI OF THE BRAIN WITHOUT CONTRAST HISTORY: Mental status change, unknown causes. History of endometrial carcinoma. Brain metastasis is suspected. COMPARISON: None. TECHNIQUE: MRI of the brain was performed without contrast according to standard protocol. FINDINGS: No evidence of acute or chronic hemorrhage is identified. No evidence ofan acute cerebral or cerebellar infarction is identified. No mass, edema,mass effect or midline shift is seen. The hernandez-white interface is normal. The thin halo of periventricular T2 hyperintense white matter changes is age-appropriate. There are no other white matter changes. No oldinfarction or encephalomalacia is identified. The brain volume is normal for age. The ventricles are of normal size, shape, and morphology. The corpus callosum and sella appear normal. The pituitary gland is not enlarged. The posterior fossa, brainstem, and craniocervical junction appear normal. The orbits and the orbital contents are normal and symmetric. Theparanasal sinuses and the mastoid air cells are clear except for mild mucosal thickening of some of bilateral ethmoid air cells and small bilateral partial mastoid effusion. Normal flow voids are demonstrated in the carotid arteries, intradural vertebral arteries and basilar artery. The calvarium is normal. The visualized cervical spine appears unremarkable as visualized. IMPRESSION: 1. No intracranial metastatic lesions or acute intracranial process is identified. 2. Age-appropriate involutional changes. > Interpreting Provider: Ye Kidd MD on 10/15/2022 11:22 AM Ramona Valencia MD MR ORDERABLES * (ABNORMAL) URINE DRUG SCREEN IMMUNOASSAY (10/14/2022 10:54 AM CDT) Amphetamines Screen Urine Not detected Not detected 10/14/2022 11:43 AM CDT [facility] Barbiturates Screen Urine Not detected Not detected 10/14/2022 11:43 AM CDT [facility] Benzodiazepines Screen Urine Not detected Not detected 10/14/2022 11:43 AM CDT [facility] Cannabinoids Screen Urine Not detected Not detected 10/14/2022 11:43 AM CDT [facility] Cocaine Screen Urine Not detected Not detected 10/14/2022 11:43 AM CDT [facility] Fentanyl Urine Detected(A) Not detected 10/14/2022 11:43 AM CDT [facility] Methadone Screen Urine Not detected Not detected 10/14/2022 11:43 AM CDT [facility] Opiate Screen Urine Detected(A) Not detected 10/14/2022 11:43 AM CDT [facility] Phencyclidine Screen Urine Not detected Not detected 10/14/2022 11:43 AM CDT [facility] Urine URINE / Unknown Collection / Unknown 10/14/2022 10:54 AM CDT 10/14/2022 11:06 AM CDT Narrative [facility] - 10/14/2022 11:43 AM CDT This drug screen is designed for MEDICAL purposes only. It is not to be used for legal purposes, including but not limited to worker's comp, police investigations, occupational issues, child custody, etc. Any positive result is only presumptive and must be confirmed with a separate confirmatory test ordered by the physician. Drug Screening Test Cutoff Values: AMPHETAMINES 1000 ng/mL BARBITURATES 200 ng/mL BENZODIAZEPINES 200 ng/mL CANNABINOIDS(THC) 50 ng/mL COCAINE 300 ng/mL FENTANYL 1 ng/mL METHADONE 300 ng/mL OPIATES 300 ng/mL PHENCYCLIDINE(PCP) 25 ng/mL Ramona Valencia MD LAB - URINE CHEMISTR Y ORDERABLES [facility] [address] [place] [address] * TRANSFUSE RED BLOOD CELL LEUKOREDUCED UNIT(S) (10/13/2022 10:04 PM CDT) Ramona Valencia MD NURSING - BLOOD PROD TRANSFUSION * TRANSFUSE RED BLOOD CELL LEUKOREDUCED UNIT(S) (10/13/2022 1:49 PM CDT) Jeffery Flores MD NURSING - BLOOD PROD TRANSFUSION * (ABNORMAL) HGB HCT PANEL (10/13/2022 7:13 AM CDT) Only the most recent of3 resultswithin the time period is included. [facility] Signature Hemoglobin 7.3(L) 12.0 - 15.6 gm/dL 10/13/2022 7:39 AM CDT [facility] Hematocrit 23.4(L) 35.9 - 45.5 % 10/13/2022 7:39 AM CDT [facility] Blood BLOOD SPECIMEN / Unknown Lab Venipuncture / Unknown 10/13/2022 7:13 AM CDT 10/13/2022 7:35 AM CDT Ramona Valencia MD LAB - HEMATOLOGY ORD ERABLES [facility] [address] [place] [address] * (ABNORMAL) CBC W/O DIFFERENTIAL (10/12/2022 4:00 PM CDT) Only the most recent of2 resultswithin the time period is included. WBC 7.9 4.4 - 10.7 x10E9/L 10/12/2022 4:10 PM CDT [facility] RBC 2.52(L) 3.80 - 5.20 x10E12/L 10/12/2022 4:10 PM CDT [facility] Hemoglobin 7.3(L) 12.0 - 15.6 gm/dL 10/12/2022 4:10 PM CDT [facility] Hematocrit 22.7(L) 35.9 - 45.5 % 10/12/2022 4:10 PM CDT [facility] MCV 90.1 80.7 - 98.3 fl 10/12/2022 4:10 PM CDT [facility] MCH 29.0 26.7 - 34.0 pg 10/12/2022 4:10 PM CDT [facility] MCHC 32.2 30.8 - 35.9 gm/dL 10/12/2022 4:10 PM CDT [facility] Platelet Count 253 153 - 416 x10E9/L 10/12/2022 4:10 PM CDT [facility] RDW-CV 14.5 12.1 - 14.9 % 10/12/2022 4:10 PM CDT [facility] MPV 9.4 9.4 - 12.9 fl 10/12/2022 4:10 PM CDT [facility] Blood BLOOD SPECIMEN / Unknown Lab Venipuncture / Unknown 10/12/2022 4:00 PM CDT 10/12/2022 4:07 PM CDT Jeffery Flores MD LAB - HEMATOLOGY ORD ERABLES [facility] [address] [place] [address] * XR KNEE LEFT 2VW OR LESS (10/11/2022 2:14 PM CDT) Anatomical Region Laterality Modality Lower Extremity Radiographic Alona ging 10/11/2022 2:16 PM CDT Narrative 10/11/2022 2:40 PM CDT PROCEDURE: XR KNEE LEFT 2VW OR LESS, DATE/TIME OF EXAM: 10/11/2022 2:15 PM, LOCATION [facility] INDICATION: S89.92XS: Unspecified injury of left lower leg, sequela LEFT KNEE 2 VIEW HISTORY: Injury and pain. FINDINGS: There is tricompartmental hypertrophic degenerative change without fracture, subluxation or bone destruction. There is no joint effusion. DIAGNOSIS: Degenerative change. Edited by Susan Thomas on 10/11/2022 2:39 PM > Interpreting Provider: Jamir Garcia MD on 10/11/2022 2:40 PM Procedure Note Jamir Garcia MD - 10/11/2022 PROCEDURE: XR KNEE LEFT 2VW OR LESS, DATE/TIME OF EXAM: 10/11/2022 2:15 PM, LOCATION [facility] INDICATION: S89.92XS: Unspecified injury of left lower leg, sequela LEFT KNEE 2 VIEW HISTORY: Injury and pain. FINDINGS: There is tricompartmental hypertrophic degenerative change without fracture, subluxation or bone destruction. There is no joint effusion. DIAGNOSIS: Degenerative change. Edited by Susan Thomas on 10/11/2022 2:39 PM > Interpreting Provider: Jamir Garcia MD on 10/11/2022 2:40 PM Jeffery Flores MD DIAGNOSTIC IMAGING O RDERABLES * (ABNORMAL) PTT (10/11/2022 9:39 AM CDT) Only the most recent of29 resultswithin the time period is included. PTT 72.7(H) 23.0 - 38.4 sec 10/11/2022 10:22 AM CDT [facility] Blood BLOOD SPECIMEN / Unknown Lab Venipuncture / Unknown 10/11/2022 9:39 AM CDT 10/11/2022 9:55 AM CDT Narrative [facility] - 10/11/2022 10:22 AM CDT Heparin Therapeutic Range for PTT: 69.0 - 110.0 seconds. Jeffery Flores MD LAB - COAGULATION OR DERABLES Performing Organization Address [facility] Co de Phone Number [facility] [address] [place] [address] [phone] * FIBRINOGEN ACTIVITY (10/10/2022 8:15 AM CDT) Only the most recent of8 resultswithin the time period is included. Fibrinogen 329 200 - 400 mg/dL 10/10/2022 8:38 AM CDT [facility] Blood BLOOD SPECIMEN / Unknown Venipuncture / Unknown 10/10/2022 8:15 AM CDT 10/10/2022 8:26 AM CDT Barry Kramer MD LAB - COAGULATION OR DERABLES Performing Organization Address [facility] de Phone Number [facility] [address] [place] [address] * TRANSFERRIN (10/10/2022 2:05 AM CDT) Transferrin 203 180 - 382 mg/dL 10/10/2022 7:30 AM CDT [facility] Blood BLOOD SPECIMEN / Unknown Venipuncture / Unknown 10/10/2022 2:05 AM CDT 10/10/2022 2:15 AM CDT Barry Kramer MD LAB - CHEMISTRY NICOLE BENITEZ Performing Organization Address [facility] Co de Phone Number [facility] [address] [place] [address] [phone] * (ABNORMAL) IRON + TRANSFERRIN PANEL (10/10/2022 2:05 AM CDT) Iron 36(L) 50 - 170 ug/dL 10/10/2022 7:30 AM CDT [facility] Transferrin 203 180 - 382 mg/dL 10/10/2022 7:30 AM CDT [facility] TIBC Calculated 254 240 - 450 ug/dL 10/10/2022 7:30 AM CDT [facility] Iron Saturation % 14(L) 20 - 50 % 10/10/2022 7:30 AM CDT [facility] Blood BLOOD SPECIMEN / Unknown Venipuncture / Unknown 10/10/2022 2:05 AM CDT 10/10/2022 2:15 AM CDT Barry Kramer MD LAB - CHEMISTRY NICOLE BENITEZ [facility] [address] [place] [address] * IR THROMBOLYSIS RECHECK (10/09/2022 6:12 PM CDT) Anatomical Region Laterality Modality Head, Lower Extremity, Upper Extremity, Abdomen X-Ray Angiography 10/12/2022 6:10 PM CDT Impressions 10/12/2022 6:14 PM CDT Impression: 1. Post catheter directed lysis, venogram showed slight improvement in the clot burden. There was an area of residual stenosis in the proximal superficial femoral vein which was dilated using a 12 mm balloon. 2. Sccessful infrarenal placement of a retrievable Option Elite IVC filter via the right internal jugular vein under fluoroscopic guidance, as detailed above. Follow-up: It is recommended to retrieve a temporary IVC filter within 3 months if it is no longer needed. Otherwise, it potentially becomes irretrievable and permanent. The patient should be scheduled to follow-up in IR clinic in 8-10 weeks for re-evaluation (or sooner if it has been determined that the filter is no longer required). I, Dr. Kate , was present and performed/supervised the entire procedure. Moderate sedation on this adult patient was ordered by me, administered intravenously in my presence, and monitored by the procedure nurse as an independent trained observer who was present throughout the procedure. > Interpreting Provider: Kg Kate MD on 10/12/2022 6:14 PM Narrative 10/12/2022 6:14 PM CDT History: : Patient with right lower extremity DVT, status post thrombectomy with 1 week ago. Patient symptoms improved, however there is some residue pain and swelling. Ultrasound showed clot in the superficial femoral vein. Patient is here for DVT lysis. We initiated catheter directed lysis yesterday. Patient is here for follow Operators: 1.Dr. Kate, Attending Physician Anesthesia: 1.Local anesthesia - 10 mL of 1% lidocaine Sedation:Versed:2mg, Fentanyl: 100mcg Sedation start time:175hours Procedure start time:175hours Procedure end time:1811hours Additional drugs:lidocaine 1% Contrast:50mL ofIsovue-370 Fluoroscopy time:3.13min Dose:148mGy Procedure: 1.Removal of the lysis catheter and venogram 2.2. Venogram of the right popliteal, common femoral and common iliac veins 3.Venogram of the IVC 4.Deployment of a retrievable Option Elite inferior vena cava filter below the level of the renal veins. 5.Post-deployment sheath inferior venacavogram. Procedure in detail: The procedure, risks, and possible complications were explained to the patient in detail, and informed consent was obtained. The patient was placed supine on the angiography table. A stroboroma operator radiograph of the abdomen was obtained which was unremarkable. The indwelling lysis catheter was removed over a wire. The 5 Austrian Kumpe catheter was advanced into the common iliac vein. A pullback venogram was performed which showed slightly improved clot burden. There was however some residual stenosis in the proximal superficial femoral vein. We decided to perform anoplasty. Anoplasty was performed of the proximal superficial femoral vein using a 12 m balloon. Post angioplasty venogram showed slightly improved flow. Then decided to place a lysis catheter. Following a series of exchanges and dilatations, an IVC filter delivery sheath was advanced through the right atrium into the inferior vena cava over a 0.035 inch guidewire.An inferior venacavogram was obtained through the delivery sheath. The study revealed a patent IVC without any clot burden or congenital abnormality. The level of both renal veins was studied. No obvious renal vein abnormality was detected. A retrievable Option Elite IVC filter was then deployed below the level of renal veins under fluoroscopic guidance. A post-deployment sheath venogram of the IVC confirmed the IVC filter was below the level of the renal veins. The sheath was removed, and hemostasis was achieved with manual compression. A sterile dressing was applied. The patient tolerated the procedure well and was transferred to the holding area in stable condition. There were no immediate complications associated with the procedure. Procedure Note Kg Kate MD - 10/12/2022 History: : Patient with right lower extremity DVT, status postthrombectomy with 1 week ago. Patient symptoms improved, however there is someresidue pain and swelling. Ultrasound showed clot in the superficial femoralvein. Patient is here for DVT lysis. We initiated catheter directed lysis yesterday. Patient is here forfollow Operators: 1.Dr. Kate, Attending Physician Anesthesia: 1.Local anesthesia - 10 mL of 1% lidocaine Sedation:Versed:2mg, Fentanyl: 100mcg Sedation start time:1751hours Procedure start time:1750hours Procedure end time:1811hours Additional drugs:lidocaine 1% Contrast:50mL ofIsovue-370 Fluoroscopy time:3.13min Dose:148mGy Procedure: 1.Removal of the lysis catheter and venogram 2.2. Venogram of the right popliteal, common femoral and common iliacveins 3.Venogram of the IVC 4.Deployment of a retrievable Option Elite inferior vena cava filterbelow the level of the renal veins. 5.Post-deployment sheath inferior venacavogram. Procedure in detail: The procedure, risks, and possible complications were explained to the patient in detail, and informed consent was obtained. The patient was placed supine on the angiography table. A stroboroma operator radiograph of theabdomen was obtained which was unremarkable. The indwelling lysis catheter was removed over a wire. The 5 FrenchKumpe catheter was advanced into the common iliac vein. A pullback venogramwas performed which showed slightly improved clot burden. There was however some residual stenosis in the proximal superficial femoral vein. We decided to perform anoplasty. Anoplasty was performed of the proximal superficial femoral vein using a 12 m balloon. Post angioplasty venogram showed slightly improved flow. Then decided to place a lysis catheter. Following a series of exchanges and dilatations, an IVC filter delivery sheath was advanced through the right atrium into the inferior vena cava over a 0.035 inch guidewire.An inferior venacavogram was obtainedthrough the delivery sheath. The study revealed a patent IVC without any clot burden or congenital abnormality. The level of both renal veins was studied. No obvious renal vein abnormality was detected. A retrievable Option Elite IVC filter was then deployed below the levelof renal veins under fluoroscopic guidance. A post-deployment sheathvenogram of the IVC confirmed the IVC filter was below the level of the renalveins. The sheath was removed, and hemostasis was achieved with manual compression. A sterile dressing was applied. The patient tolerated the procedure well and was transferred to the holding area in stablecondition. There were no immediate complications associated with the procedure. Impression: 1. Post catheter directed lysis, venogram showed slight improvement inthe clot burden. There was an area of residual stenosis in the proximal superficial femoral vein which was dilated using a 12 mm balloon. 2. Sccessful infrarenal placement of a retrievable Option Elite IVCfilter via the right internal jugular vein under fluoroscopic guidance, as detailed above. Follow-up: It is recommended to retrieve a temporary IVC filter within 3 months if it is no longer needed. Otherwise, it potentially becomes irretrievable and permanent. The patient should be scheduled tofollow-up in IR clinic in 8-10 weeks for re-evaluation (or sooner if it has been determined that the filter is no longer required). I, Dr. Kate , was present and performed/supervised the entireprocedure. Moderate sedation on this adult patient was ordered by me, administered intravenously in my presence, and monitored by the procedure nurse as an independent trained observer who was present throughout the procedure. > Interpreting Provider: Kg Kate MD on 10/12/2022 6:14 PM Kg Kate MD IR ORDERABLES * TROPONIN I (10/08/2022 5:59 PM CDT) Troponin I <0.010 <0.038 ng/mL 10/08/2022 6:29 PM CDT [facility] Blood BLOOD SPECIMEN / Unknown Venipuncture / Unknown 10/08/2022 5:59 PM CDT 10/08/2022 6:05 PM CDT Bartolo López MD LAB - CHEMISTRY NICOLE BENITEZ [facility] [address] [place] [address] * B-TYPE NATRIURETIC PEPTIDE (10/08/2022 5:59 PM CDT) BNP <10 <=100 pg/mL 10/08/2022 6:32 PM CDT [facility] Blood BLOOD SPECIMEN / Unknown Venipuncture / Unknown 10/08/2022 5:59 PM CDT 10/08/2022 6:05 PM CDT Narrative [facility] - 10/08/2022 6:32 PM CDT A cutoff of 100 pg/mL has been demonstrated to provide the maximal combination of sensitivity, specificity, and negative predictive value for contributing to the diagnosis of congestive heart failure (CHF) only. A B-Type Natriuretic Peptide (BNP) value greater than or equal to 100 pg/mL is consistent with a diagnosis of CHF in the appropriate clinical setting. False positive results are more common in females greater than 75 years of age. Blood concentrations of natriuretic peptides may also be elevated in patients with myocardial infarction and in patients who are candidates for or are undergoing renal dialysis. Bartolo López MD LAB - CHEMISTRY NICOLE [facility] Organization Address City/State/[facility] Co de Phone Number [facility] [address] [place] [address] * IR THROMBOLYSIS VENOUS (10/08/2022 4:27 PM CDT) Anatomical Region Laterality Modality X-Ray Angiograph y 10/12/2022 6:00 PM CDT Impressions 10/12/2022 6:09 PM CDT Impression: 1.Initial venogram showed acute on chronic clot in the right popliteal and femoral vein. 2.2. Initiation of catheter directed lysis with catheter across the clot. 1.Follow up: Patient will go to the ICU and the thrombectomy IR for check tomorrow I, Dr. Dr. Kate, was present and performed/supervised the entire procedure. > Interpreting Provider: Kg Kate MD on 10/12/2022 6:09 PM Narrative 10/12/2022 6:09 PM CDT PROCEDURE: IR THROMBOLYSIS VENOUS DATE/TIME OF EXAM: 10/08/2022 4:50 PM CLINICAL INFORMATION: None relevant/not provided if blank. Indication: I82.401: Acute embolism and thrombosis of unspecified deep veins of right lower extremity (CMS/HCC) I82.411: Acute embolism and thrombosis of right femoral vein (CMS/HCC) Additional History: The History: Patient with right lower extremity DVT, status post thrombectomy with 1 week ago. Patient symptoms improved, however there is some residue pain and swelling. Ultrasound showed no clot in the superficial femoral vein. Patient is here for DVT lysis. Operators: 1.Dr. Kate, Attending Physician Anesthesia: 1.Local -10 mL of 1% lidocaine Sedation:Benadryl mg Fentanyl mg Sedation start time:n/ahours Procedure start time:1511hours Procedure end time:1627hours Additional drugs:50mg Benadryl, 150mcg Fentanyl, and 1%lidocaine Contrast:15mL of Isovue-370 Fluoroscopy time:5.6min 1.Dose:46mGy Procedure: 1.Ultrasound-guided access of right popliteal vein. 2.Rightlower extremity popliteal vein, femoral vein, iliac vein venograms. 3.Placement of a single: 5 Fr unifuse catheters (50 cm infusion length) across the left iliocaval segment and popliteal femoral segments for tPA infusion at 1 mg/hr each. Procedure in detail: The procedure, risks, possible complications, and the use of conscious sedation were explained to the patient and informed consent was obtained. The patient was brought to the angiography suite and placed prone on the table. The left leg were prepped and draped in the usual sterile fashion. A total of 2000 heparin given throughout procedure with frequent ACT checks. Multiple attempts were made to access the right posterior tibial vein under ultrasound guidance. However this was unsuccessful due to small nature of the vessel. Using ultrasound guidance access was obtained into the right popliteal vein. 1% lidocaine was used for local anesthesia. Using a micropuncture needle, access obtained into the popliteal vein. After series of exchanges, a 5 Austrian sheath was placed in the popliteal fossa. Using the 5 Austrian catheter and a Glidewire, access was obtained into the femoral vein and then into the iliac veins. A pullback venogram was performed which showedacute on chronic DVT involving the right superficial femoral vein and popliteal vein. Intravascular ultrasound was performed which showed acute on chronic clot in the femoral vein. We decided to lysis. A single 5 Austrian, 50 cm infusion length UniFuse catheter were then advanced, through the right popliteal vein access into the femoral vein. Doppler of the infusion was placed at the external iliac vein and the bottom was in the popliteal vein. was to ensure TPA infusion across the holding left deep venous system. TPA infusion was initiated with 0.5 mg/hr TPA infusion into the catheter The patient tolerated the procedure well and was transferred to the holding area in stable condition. There were no immediate complications associated with the procedure. Procedure Note Kg Kate MD - 10/12/2022 PROCEDURE: IR THROMBOLYSIS VENOUS DATE/TIME OF EXAM: 10/08/2022 4:50 PM CLINICAL INFORMATION: None relevant/not provided if blank. Indication: I82.401: Acute embolism and thrombosis of unspecified deep veins of right lower extremity (CMS/HCC) I82.411: Acute embolism and thrombosis of right femoral vein (CMS/HCC) Additional History: The History: Patient with right lower extremity DVT, status post thrombectomy with 1 week ago. Patient symptoms improved, however thereis some residue pain and swelling. Ultrasound showed no clot in the superficial femoral vein. Patient is here for DVT lysis. Operators: 1.Dr. Kate, Attending Physician Anesthesia: 1.Local -10 mL of 1% lidocaine Sedation:Benadryl mg Fentanyl mg Sedation start time:n/ahours Procedure start time:1511hours Procedure end time:1627hours Additional drugs:50mg Benadryl, 150mcg Fentanyl, and 1%lidocaine Contrast:15mL of Isovue-370 Fluoroscopy time:5.6min 1.Dose:46mGy Procedure: 1.Ultrasound-guided access of right popliteal vein. 2.Rightlower extremity popliteal vein, femoral vein, iliac veinvenograms. 3.Placement of a single: 5 Fr unifuse catheters (50 cm infusion length) across the left iliocaval segment and popliteal femoral segments for tPA infusion at 1 mg/hr each. Procedure in detail: The procedure, risks, possible complications, and the use of conscious sedation were explained to the patient and informed consent wasobtained. The patient was brought to the angiography suite and placed prone on the table. The left leg were prepped and draped in the usual sterilefashion. A total of 2000 heparin given throughout procedure with frequent ACT checks. Multiple attempts were made to access the right posterior tibial veinunder ultrasound guidance. However this was unsuccessful due to small natureof the vessel. Using ultrasound guidance access was obtained into the right popliteal vein. 1% lidocaine was used for local anesthesia. Using a micropuncture needle, access obtained into the popliteal vein. After series ofexchanges, a 5 Austrian sheath was placed in the popliteal fossa. Using the 5 Austrian catheter and a Glidewire, access was obtained intothe femoral vein and then into the iliac veins. A pullback venogram was performed which showedacute on chronic DVT involving the rightsuperficial femoral vein and popliteal vein. Intravascular ultrasound was performed which showed acute on chronicclot in the femoral vein. We decided to lysis. A single 5 Austrian, 50 cm infusion length UniFuse catheter were then advanced, through the right popliteal vein access into the femoral vein. Doppler of the infusion was placed at the external iliac vein and the bottom was in the popliteal vein. was to ensure TPA infusion across the holding left deep venous system. TPA infusion was initiated with 0.5 mg/hr TPA infusion into the catheter The patient tolerated the procedure well [facility] There were no immediate complicationsassociated with the procedure. Impression: 1.Initial venogram showed acute on chronic clot in the right poplitealand femoral vein. 2.2. Initiation of catheter directed lysis with catheter across theclot. 1.Follow up: Patient will go to the ICU and the thrombectomy IR [facility] tomorrow I, . Dr. Kate, was present and performed/supervised the entire procedure. > Interpreting Provider: Kg Kate MD on 10/12/2022 6:09 PM Bartolo López MD IR ORDERABLES * LARYNGEAL MASK AIRWAY (10/04/2022 7:15 AM CDT) Narrative Damian Allison APRN-CRNA - 10/04/2022 7:15 AM CDT Damian Allison APRN-CRNA 10/04/2022 7:15 AM LMA Placement Procedure/LDA Note: Patient Location: OR. LMA Insertion Date/Time: 10/04/2022 7:08 AM Procedure: LMA. Pretreatment: 100% O2 Induction: standard IV Patient position: sniffing. Mask Ventilation: not attempted Type: LMA Size: 4 Number of Attempts: 1. Cuff volume (mL): 2 Placement verified by: bilateral breath sounds, chest auscultation and CO2 monitor Dentition unchanged? Yes Procedure Start Time: 10/04/2022 7:08 AM. Procedure End Time: 10/04/2022 7:09 AM. Procedure Total Time: 1 minutes. Staff Section Anesthesia Provider: Damian Allison APRN-WILFRID, Performed the procedure Radha Peres MD GENERAL ANESTHESIA O RDERABLES * IR TRANSLUM THROMBECTOMY VENOUS (10/02/2022 8:46 AM CDT) Anatomical Region Laterality Modality Lower Extremity, Upper Extremity X-Ray Angiography 10/02/2022 9:17 AM CDT Impressions 10/10/2022 2:28 PM CDT Impression: 1. Initial evaluation: Venogram and IVUS revealed acute on chronic clot in the right superficial femoral, common femoral, external iliac, veins. IVUS confirmed this. 2. Intervention: Mechanical thrombectomy was performed using 13 Fr Inari clotriever device in superficial femoral, common femoral, external iliac, .. Multiple passes were made and a large amount of clot was aspirated. 3. Post intervention findings: Post intervention superficial femoral, common femoral, external iliac, common iliac venogram showed significantly improved blood flow across right superficial femoral, common femoral, external iliac, common iliac veins with no clot present. IVUS confirmed this Follow-up recommendations: 1. Continue heparin for 24-48 hours with switching to DOAC . 2. VIR will continue to follow inpatient 2. Follow-up in VIR clinic in 6 weeks with Duplex lower extremity I, Dr. Kg Kate, was present and performed/supervised the entire procedure. Moderate sedation on this adult patient was ordered by me, administered intravenously in my presence, and monitored by the procedure nurse as an independent trained observer who was present throughout the procedure. IKg MD have personally reviewed and interpreted this examination/study. > Interpreting Provider: Kg Kate MD on 10/10/2022 2:28 PM Narrative 10/10/2022 2:28 PM CDT History: 57 year old female with 1 week intermittent symptoms follow by acute onset leg swelling and erythemia. Operators: 1.Dr. Kate, Attending Physician 2.Dr. Cobb, Resident Physician Anesthesia: 1.Local -10 mL of 1% lidocaine General anesthesia Procedure: Via a popliteal vein access 1.Venogram of right femoral, common femoral, external iliac, common iliac, and IVC. 2.IVUS of right femoral, common femoral, external iliac, . 3.Mechanical thrombectomy with Inari ClotTriever of right femoral, common femoral, external iliac, 4.Balloonvenoplastyof mid right femoral vein. 5.Completion venogram and IVUS 6.Completion IVUS. Procedure in detail: The procedure, risks, possible complications, and the use of conscious sedation were explained to the patient and informed consent was obtained. The patient was brought to the angiography suite and placed prone on the table. The right groin were prepped and draped in the usual sterile fashion. The patient received intravenous Versed and Fentanyl for conscious sedation. A qualified radiology nurse monitored the patients vital signs throughout the procedure. A total of 5000 heparin given throughout procedure with frequent ACT checks. Using ultrasound guidance access was obtained into the right popliteal vein. 1% lidocaine was used for local anesthesia. Using a micropuncture needle, access obtained into the popliteal vein. After series of exchanges, a 5 Austrian sheath was placed in the popliteal fossa. Using the 5 Austrian catheter and a Glidewire, access was obtained into the femoral vein and then into the iliac veins followed by the inferior vena cava. Initial Venogram and IVUS: A pullback venogram was performed which showed extensive clot burden in the of right femoral, common femoral, external iliac, common iliac veins. The IVUS was coaxially advanced over a wire to the level of the infrarenal IVC. IVUS demonstrated similar findings compared to the venogram, clot burden in the of right femoral, common femoral, external iliac Intervention: We then decided to perform mechanical thrombectomy. The existing sheath in the posterior tibial fossa was exchanged for a 13 Fr Clotriever device. The Inari ClotTriever was coaxially advanced over a wire to the level of the infrarenal IVC. Mechanical thrombectomy was performed from the external ilaic to the popliteal vein across the clot burden in the of right femoral, common femoral, external iliac, common iliac veins. A total of 4 passes in various quadrants.. A large amount of clot was removed. Further Intervention: A follow-up venogram was performed which showed small amount of clot burden in right femoral, common femoral, external iliac, common iliac veins. We then decided to perform Balloon angioplasty A Size of balloon mm Conquest high-pressure balloon was coaxially advanced over a wire to the mid right femoral vein and balloon angioplasty was performed. Post Intervention Venogram and IVUS: Completion sheath venogram demonstrated significantly improved flow with near resolution of clot burden in right femoral, common femoral, external iliac, common iliac veins.. No residual hemodynamically significant stenosis was seen. Completion IVUS confirmed patency of the IVC to right popliteal vein The Right popliteal sheath was removed and hemostasis was achieved with pursestring suture. A sterile dressing was applied. The patient tolerated the procedure well and was transferred to the holding area in stable condition. There were no immediate complications associated with the procedure. Procedure Note Kg Kate MD - 10/10/2022 History: 57 year old female with 1 week intermittent symptoms follow by acute onset leg swelling and erythemia. Operators: 1.Dr. Kate, Attending Physician 2.Dr. Cobb, Resident Physician Anesthesia: 1.Local -10 mL of 1% lidocaine General anesthesia Procedure: Via a popliteal vein access 1.Venogram of right femoral, common femoral, external iliac, commoniliac, and IVC. 2.IVUS of right femoral, common femoral, external iliac, . 3.Mechanical thrombectomy with Inari ClotTriever of right femoral,common femoral, external iliac, 4.Balloonvenoplastyof mid right femoral vein. 5.Completion venogram and IVUS 6.Completion IVUS. Procedure in detail: The procedure, risks, possible complications, and the use of conscious sedation were explained to the patient and informed consent wasobtained. The patient was brought to the angiography suite and placed prone on the table. The right groin were prepped and draped in the usual sterile fashion. The patient received intravenous Versed and Fentanyl for conscious sedation. A qualified radiology nurse monitored the patients vital signs throughout the procedure. A total of 5000 heparin given throughout procedure with frequent ACT checks. Using ultrasound guidance access was obtained into the right popliteal vein. 1% lidocaine was used for local anesthesia. Using a micropuncture needle, access obtained into the popliteal vein. After series ofexchanges, a 5 Austrian sheath was placed in the popliteal fossa. Using the 5 Austrian catheter and a Glidewire, access was obtained intothe femoral vein and then into the iliac veins followed by the inferior vena cava. Initial Venogram and IVUS: A pullback venogram was performed which showed extensive clot burden inthe of right femoral, common femoral, external iliac, common iliac veins. The IVUS was coaxially advanced over a wire to the level of theinfrarenal IVC. IVUS demonstrated similar findings compared to the venogram, clot burden in the of right femoral, common femoral, external iliac Intervention: We then decided to perform mechanical thrombectomy. The existing sheathin the posterior tibial fossa was exchanged for a 13 Fr Clotriever device. The Inari ClotTriever was coaxially advanced over a wire to the level of the infrarenal IVC. Mechanical thrombectomy was performed from theexternal ilaic to the popliteal vein across the clot burden in the of right femoral, common femoral, external iliac, common iliac veins. A total of 4 passes in various quadrants.. A large amount of clot was removed. Further Intervention: A follow-up venogram was performed which showed small amount of clotburden in right femoral, common femoral, external iliac, common iliac veins. We then decided to perform Balloon angioplasty A Size of balloon mm Conquest high-pressure balloon was coaxiallyadvanced over a wire to the mid right femoral vein and balloon angioplasty was performed. Post Intervention Venogram and IVUS: Completion sheath venogram demonstrated significantly improved flow with near resolution of clot burden in right femoral, common femoral,external iliac, common iliac veins.. No residual hemodynamically significant stenosis was seen. Completion IVUS confirmed patency of the IVC to right popliteal vein The Right popliteal sheath was removed and hemostasis was achieved with pursestring suture. A sterile dressing was applied. The patienttolerated the procedure well and was transferred to the holding area in stable condition. There were no immediate complications associated with the procedure. Impression: 1. Initial evaluation: Venogram and IVUS revealed acute on chronic clotin the right superficial femoral, common femoral, external iliac, veins.IVUS confirmed this. 2. Intervention: Mechanical thrombectomy was performed using 13 FrInari clotriever device in superficial femoral, common femoral, externaliliac, .. Multiple passes were made and a large amount of clot was aspirated. 3. Post intervention findings: Post intervention superficial femoral, common femoral, external iliac, common iliac venogram showedsignificantly improved blood flow across right superficial femoral, common femoral, external iliac, common iliac veins with no clot present. IVUS confirmed this Follow-up recommendations: 1. Continue heparin for 24-48 hours with switching to DOAC . 2. VIR will continue to follow inpatient 2. Follow-up in VIR clinic in 6 weeks with Duplex lower extremity I, Dr. Kg Kate, was present and performed/supervised the entire procedure. Moderate sedation on this adult patient was ordered by me, administered intravenously in my presence, and monitored by theprocedure nurse as an independent trained observer who was present throughout the procedure. I, Kg Kate MD have personally reviewed and interpreted this examination/study. > Interpreting Provider: Kg Kate MD on 10/10/2022 2:28 PM Kg Kate MD IR ORDERABLES * CT OUTSIDE CONSULTATION (10/01/2022 10:49 AM CDT) Anatomical Region Laterality Modality Computed Tomogra phy 10/01/2022 11:0 0 AM CDT Narrative 10/01/2022 11:10 AM CDT Procedure: CT OUTSIDE CONSULTATION Exam Date: 10/01/2022 10:49 AM Location: [facility] Indication: I26.99: Other pulmonary embolism without acute cor pulmonale (CMS/HCC) N93.9: Abnormal uterine and vaginal bleeding, unspecified N85.8: Other specified noninflammatory disorders of uterus FINDINGS/IMPRESSION: A CT outside consultation was requested for the CT of the chest. There are degenerative changes of the spine. There is mild scoliosis convex to the right. The lungs are clear of infiltrate. There is dependent atelectasis. There is no pleural effusion. There is no pneumothorax. There are no suspicious pulmonary nodules. The central airways are normal in caliber. The thyroid gland is unremarkable. There is no axillary adenopathy. There is no mediastinal adenopathy. There is no hilar adenopathy. There are pulmonary emboli within the distal aspect of the right main pulmonary artery with extension into the segmental branches of the upper and middle lobes and the subsegmental branches of the right lower lobe. No definite left-sided pulmonary emboli are seen. The aorta is normal in caliber with no evidence for aneurysm or dissection. The heart is normal in size. There is no evidence for right heart failure. A cursory review of the CT abdomen pelvis demonstrates marked enlargement of the uterus likely due to uterine or endometrial mass. There is enhancement of the mucosa with fluid within the endometrial canal. There is retroperitoneal adenopathy. Small mesenteric lymph nodes are also present. There appears to be deep venous thrombosis involving the profunda femoral and common femoral veins as well as the distal aspect of the right common iliac vein. There is right inguinal adenopathy as well as adenopathy along the right internal and external iliac chains. > Interpreting Provider: Juan Carlos See MD on 10/01/2022 11:10 AM Procedure Note Juan Carlos See MD - 10/01/2022 Procedure: CT OUTSIDE CONSULTATION Exam Date: 10/01/2022 10:49 AM Location: [facility] Indication: I26.99: Other pulmonary embolism without acute cor pulmonale (CMS/HCC) N93.9: Abnormal uterine and vaginal bleeding, unspecified N85.8: Other specified noninflammatory disorders of uterus FINDINGS/IMPRESSION: A CT outside consultation was requested for the CT of the chest. Thereare degenerative changes of the spine. There is mild scoliosis convex to the right. The lungs are clear of infiltrate. There is dependent atelectasis. There is no pleural effusion. There is no pneumothorax. There are no suspicious pulmonary nodules. The central airways are normal incaliber. The thyroid gland is unremarkable. There is no axillary adenopathy. There is no mediastinal adenopathy. There is no hilar adenopathy. There are pulmonary emboli within the distal aspect of the right main pulmonary artery with extension into the segmental branches of the upper and middle lobes and the subsegmental branches of the right lower lobe.No definite left-sided pulmonary emboli are seen. The aorta is normal in caliber with no evidence for aneurysm or dissection. The heart is normal in size. There is no evidence forright heart failure. A cursory review of the CT abdomen pelvis demonstrates markedenlargement of the uterus likely due to uterine or endometrial mass. There is enhancement of the mucosa with fluid within the endometrial canal. Thereis retroperitoneal adenopathy. Small mesenteric lymph nodes are alsopresent. There appears to be deep venous thrombosis involving the profundafemoral and common femoral veins as well as the distal aspect of the rightcommon iliac vein. There is right inguinal adenopathy as well as adenopathy along the right internal and external iliac chains. > Interpreting Provider: Juan Carlos See MD on 10/01/2022 11:10 AM Jhonny Mcgraw MD CT ORDERABLES * PAP IG LB+HPV APTIMA (10/01/2022 9:42 AM CDT) Diagnosis Comment 10/07/2022 12:07 PM CDT [facility] ([facility]) Comment: NEGATIVE FOR INTRAEPITHELIAL LESION OR MALIGNANCY. THIS SPECIMEN WAS RESCREENED PART OF OUR [employer] PROFESSIONAL PROGRAM. Specimen Adequacy Comment 023 12:07 PM CDT [facility] ([facility]) Comment: Satisfactory for evaluation. Endocervical and/or squamous metaplastic cells (endocervical component) are present. Performed by Comment 10/07/2022 12:07 PM CDT [facility] ([facility]) Comment:Inocencia Alexandra, Cyto technologist (ASCP) QC Reviewed by Comment 10/07/2022 12:07 PM CDT [facility] ([facility]) Comment:Renea Rossi, Cyto technologist Comment . 10/07/2022 12:07 PM CDT [facility] ([facility]) Note Comment 10/07/2022 12:07 PM CDT [facility] ([facility]) Comment: The Pap smear is a screening test designed to aid in the detection of premalignant and malignant conditions of the uterine cervix. It is not a diagnostic procedure and should not be used as the sole means of detecting cervical cancer. Both false-positive and false-negative reports do occur. IGLBP CPT Code Automation Comment 10/07/2022 12:07 PM CDT [facility] ([facility]) Comment: This liquid based ThinPrep(R) pap test was screened with the use of an image guided system. Human papillomavirus Aptima Negative Negative 10/07/2022 12:07 PM CDT [facility] ([facility]) Comment: This nucleic acid amplification test detects fourteen high-risk HPV types (16,18,31,33,35,39,45,51,52,56,58,59,66,68) without differentiation. Pathology/Cytolo gy ENTIRE ENDOCERVIX / Unknown Collection / Unknown 10/01/2022 9:42 AM CDT 10/01/2022 9:55 AM CDT Narrative [facility] ([facility]) - 10/07/2022 12:07 PM CDT Performed at: 01 - [address] [id number] Flavoring Machine Operator: Amanda Stone MD, Phone: [phone] Performed at: 02 - [address] [id number] Flavoring Machine Operator: Amanda Stone MD, Phone: [phone] Specimen Comment: No. of containers..01 ThinPrep Vial Jhonny Mcgraw MD LAB - PATHOLOGY/CYTO LOGY ORDERABLES [facility] ([facility]) [address] [place] [address] * PHOSPHORUS BLOOD (10/01/2022 5:11 AM CDT) Only the most recent of2 resultswithin the time period is included. Phosphorus 3.7 2.3 - 4.7 mg/dL 10/01/2022 6:28 AM CDT [facility] Blood BLOOD SPECIMEN / Unknown Lab Venipuncture / Unknown 10/01/2022 5:11 AM CDT 10/01/2022 6:02 AM CDT Abraham Shaw MD LAB - CHEMISTRY NICOLE BENITEZ [facility] [address] [place] [address] * TRICHOMONAS VAGINALIS AMPLIFIED PROBE (10/01/2022 4:35 AM CDT) Trichomonas vaginalis Amplified Probe Negative Negative 10/01/2022 2:59 PM CDT [facility] MICROBIOLOGY Microbiology ENTIRE VAGINA / Unknown Collection / Unknown 10/01/2022 4:35 AM CDT 10/01/2022 4:48 AM CDT Narrative [facility] MICROBIOLOGY - 10/01/2022 2:59 PM CDT Results based on detection/no detection of ribosomal RNA by amplified method. Ric Pathak MD LAB - MICROBIOLOGY O RDCHERYL Performing Organization Address [facility] Co de Phone Number [facility] MICROBIOLOGY [address] [place] [address], [facility] [phone] * CHLAMYDIA + GC AMPLIFIED PROBE (10/01/2022 4:35 AM CDT) Pathologist [facility] Chlamydia Amplified Probe Negative Negative 10/01/2022 2:59 PM CDT [facility] MICROBIOLOGY GC Amplified Probe Negative Negative 10/01/2022 2:59 PM CDT [facility] MICROBIOLOGY Microbiology ENTIRE VAGINA / Unknown Collection / Unknown 10/01/2022 4:35 AM CDT 10/01/2022 4:48 AM CDT Narrative [facility] MICROBIOLOGY - 10/01/2022 2:59 PM CDT Results based on detection/no detection of ribosomal RNA by amplified method. Ric Pathak MD LAB - MICROBIOLOGY O SRAVANI Performing Organization Address [facility] de Phone Number [facility] MICROBIOLOGY [address] [place] [address], [facility] [phone] * (ABNORMAL) RETIC COUNT (09/30/2022 9:41 PM CDT) [facility] Reticulocyte Count 2.93(H) 0.5 - 1.7 % 09/30/2022 9:54 PM CDT [facility] Reticulocyte Absolute 0.1075(H) 0.0041 - 0.0971 x10E6/uL 09/30/2022 9:54 PM CDT [facility] Reticulocyte Immature Fractionated 27.0(H) 0.9 - 14.3 % 09/30/2022 9:54 PM CDT [facility] Hemoglobin Retic 30.3 27.8 - 36.8 pg 09/30/2022 9:54 PM CDT [facility] Blood BLOOD SPECIMEN / Unknown Lab Venipuncture / Unknown 09/30/2022 9:41 PM CDT 09/30/2022 9:50 PM CDT Abraham Shaw MD LAB - HEMATOLOGY ORD ERABLES Performing Organization Address [facility]/ZIP Co de Phone Number [facility] [address] [place] [address] * LDH BLOOD (09/30/2022 9:41 PM CDT) LDH 191 125 - 220 U/L 09/30/2022 10:08 PM CDT [facility] Blood BLOOD SPECIMEN / Unknown Lab Venipuncture / Unknown 09/30/2022 9:41 PM CDT 09/30/2022 9:50 PM CDT Abraham Shaw MD LAB - CHEMISTRY NICOLE BENITEZ Performing Organization Address City/[facility]/ZIP Co de Phone Number [facility] [address] [place], [place] [phone] * LACTIC ACID BLOOD (09/30/2022 9:41 PM CDT) Lactic Acid 0.9 <=2 mmol/L 09/30/2022 10:02 PM CDT [facility] Blood BLOOD SPECIMEN / Unknown Lab Venipuncture / Unknown 09/30/2022 9:41 PM CDT 09/30/2022 9:49 PM CDT Abraham Shaw MD LAB - CHEMISTRY NICOLE BENITEZ [facility] [address] [place], [place] [phone] Care Teams Hydrodynamics Professor Relationship Specialty Start Date End Date Anil Miner MD [address] [place] [id number] PCP - General Family Medicine 04/09/23
== END 2024-08-03 10:08 | disposition home or self-care (01) ==
PROVIDERS: PCP Family Medicine Adolescent Medicine; Visit Provider Family Medicine
DX: R60.0 Localized edema (principal)
CPT/HCPCS: 72193; Q9967

== ENCOUNTER → 2025-01-11 15:37 | Outpatient (CLI) | payer MEDICARE, SELFPAY ==
--- NOTE | ~2025-01-11 | XR_ITS ---
XR knee RT 3V 01/11/2025 15:49 INDICATION: Right knee pain PROCEDURE: 4 views right knee COMPARISON: 01/01/2024 FINDINGS: Fracture, dislocation or subluxation is not identified. There is mild osteoarthritis of the right knee. No fracture, subluxation or dislocation. Mild diffuse subcutaneous edema. No joint effus ion. The soft tissues appear within normal limits. No foreign bodies are identified. IMPRESSION: 1: Mild osteoarthritis of the right knee. Reviewed, dictated and finalized at location A.
== END ==
LOC: EXPCRAD 15:38
PROVIDERS: PCP Nurse Practitioner Family; Visit Provider Nurse Practitioner Family
DX: M25.561 Pain in right knee (principal)
CPT/HCPCS: 73562